=== PATIENT | female | born 1975 | race American Indian/Alaskan Native ===

== ENCOUNTER 2016-09-11 11:26 | Inpatient (IN) | payer MEDICARE, OTHER ==
[2016-09-11 12:49] LABS: Basophils % (Auto) 0.9 % (0.0-1.8); Hematocrit 30.7 % (30.3-42.9); Hemoglobin 9.7 gm/dl (10.1-14.3); Mean Corpuscular HGB Conc 32 % (30-34); Mean Corpuscular Hemoglobin 28 pg (28-32); Mean Corpuscular Volume 88 fl (79-97); Platelet Count 173 K/mm3 (140-440); Red Blood Count 3.49 M/mm3 (3.65-5.03); Red Cell Distribution Width 17.3 % (13.2-15.2)
[2016-09-11 12:59] LABS: INR 1.03 (0.87-1.13)
[2016-09-11 13:00] LABS: Partial Thromboplastin Time 30.2 Sec. (24.2-36.6)
[2016-09-11 13:05] LABS: Bilirubin,Urine NEG (Negative); Blood,Urine SM (Negative); Ketones,Urine NEG (Negative); Leukocyte Esterase,Urine LG (Negative); Nitrite,Urine NEG (Negative); Urobilinogen,Urine < 2.0 mg/dL (<2.0)
[2016-09-11 13:10] LABS: Alanine Aminotransferase 7 units/L (7-56); Albumin 3.2 g/dL (3.9-5); Albumin/Globulin Ratio 0.9 %; Alkaline Phosphatase 61 units/L (35-129); Total Protein 6.6 g/dL (6.3-8.2)
[2016-09-11 13:12] LABS: Albumin 3.1 g/dL (3.9-5); Albumin/Globulin Ratio 0.9 %; BUN/Creatinine Ratio 3.82; Bilirubin,Total 0.3 mg/dL (0.1-1.2); Calcium 8.8 mg/dL (8.4-10.2); Chloride 100.3 mmol/L (98-107); Potassium 5.1 mmol/L (3.6-5.0); Total Protein 6.7 g/dL (6.3-8.2)
[2016-09-11 13:17] LABS: Bilirubin,Direct < 0.2 mg/dL (0-0.2); Bilirubin,Indirect 0.1 mg/dL
[2016-09-11] MEDS ORDERED: XYLOCAINE 1%/ EPI 1:100,000 INFILTRATI NR (19:00)
[2016-09-11] MEDS ORDERED: XYLOCAINE 2%/EPI 1:100,000 INFILTRATI ONE (19:25)
--- NOTE | 2016-09-11 20:11 | Emergency Department Report ---
ED Abdominal Pain HPI - General Chief Complaint: Abdominal Pain Stated Complaint: PD NEEDS TO BE DRAINED Time Seen by Provider: 09/11/16 18:50 Source: patient Mode of arrival: Ambulatory Limitations: No Limitations - History of Present Illness Initial Comments: Briana is a 40-year-old female past medical history of end-stage renal disease who gets dialysis Monday//Monday. Vision states that she presents with abdominal swelling and abdominal pain patient states that pain as a 9 on 10. Has been going on for for the last couple days. Patient states that the abdominal pain is located throughout her abdomen it does not radiate. Lying down makes the abdominal pain worse sitting up makes it better. Abdominal pain is associated with some slight shortness of breath. Patient has no nausea or vomiting. Patient states that when her belly gets distended like this she needs to get her belly tapped. Patient is visiting from [place]. Severity scale (0 -10): 10 - Related Data Allergies Allergy/AdvReac Type Severity Reaction Status Date / Time iodine Allergy Swelling Verified 09/11/16 11:55 levofloxacin [From Levaquin] Allergy Swelling Verified 09/11/16 11:55 linezolid [From Zyvox] Allergy Hives Verified 09/11/16 11:55 morphine Allergy Swelling Verified 09/11/16 11:55 Sulfa (Sulfonamide Allergy Swelling Verified 09/11/16 11:55 Antibiotics) vancomycin Allergy Swelling Verified 09/11/16 11:55 ED Review of Systems ROS: Stated complaint: PD NEEDS TO BE DRAINED Other details as noted in HPI Constitutional: weakness Eyes: denies: eye pain, eye discharge, vision change ENT: denies: ear pain, throat pain Respiratory: SOB with exertion. denies: cough, shortness of breath, wheezing Cardiovascular: denies: chest pain, palpitations Endocrine: no symptoms reported Gastrointestinal: abdominal pain, nausea Genitourinary: denies: urgency, dysuria, discharge Musculoskeletal: denies: back pain, joint swelling, arthralgia Skin: denies: rash, lesions Neurological: denies: headache, weakness, paresthesias Psychiatric: denies: anxiety, depression Hematological/Lymphatic: denies: easy bleeding, easy bruising ED Past Medical Hx - Past Medical History Previous Medical History?: Yes Hx Hypertension: Yes Hx Congestive Heart Failure: Yes Hx Diabetes: Yes Hx Liver Disease: Yes Hx Renal Disease: Yes (HD Tu -Th-Sat) Hx Sickle Cell Disease: No Hx Arthritis: Yes Hx Headaches / Migraines: Yes Hx Seizures: No Hx Kidney Stones: No Hx Asthma: Yes (bronchitis) Hx Tuberculosis: No Additional medical history: Diabetic neuropathy - Surgical History Past Surgical History?: Yes Hx Cholecystectomy: Yes (2012) Additional Surgical History: Peritoneal catheters, Left arm AV graft, Har[place] retina repair, Lasix surgery in right eye, Left below knee amputation, Right foot with third toe removed, Peritoneal cath removal, - Social History Smoking Status: Never Smoker Substance Use Type: Alcohol, Prescribed ED Physical Exam - General Limitations: No Limitations General appearance: alert, in no apparent distress - Head Head exam: Present: atraumatic, normocephalic - Eye Eye exam: Present: normal appearance - ENT ENT exam: Present: mucous membranes moist - Cardiovascular Cardiovascular Exam: Present: regular rate, normal rhythm. Absent: systolic murmur, diastolic murmur, rubs, gallop - GI/Abdominal GI/Abdominal exam: Present: distended, other (fluid wave present.) - Extremities Exam Extremities exam: Present: other (left [id number] amputation with blisters on thigh.) - Back Exam Back exam: Present: normal inspection - Neurological Exam Neurological exam: Present: alert, CN II-XII intact. Absent: normal gait - Psychiatric Psychiatric exam: Present: normal affect, normal mood - Skin Skin exam: Present: warm ED Course Vital Signs 09/11/16 09/11/16 09/11/16 11:43 17:53 17:54 Temperature 98.7 F 98.2 F Pulse Rate 86 88 Respiratory 18 19 19 Rate Blood Pressure 161/88 Blood Pressure 175/95 [Right] O2 Sat by Pulse 97 95 Oximetry - Reevaluation(s) Reevaluation #1: 09/11/16 20:12 obtained small-volume paracentesis under ultrasound guidence fluid as brown will give patient IV analgesic medication Reevaluation #2: 09/11/16 21:[address] Meadows about admitting patient to patient IV antibiotics. - Paracentesis Consent Obtained: written consent Time Out Performed: Yes (Procedure is a diagnostic paracentisis under ultrasound guidance. ) Local Anesthetic Used: Lidocaine 1%, with Epi Amount of Anesthesia Used (mls): 10 (sterile technique was used: mask, gloves ) Fluid: cloudy, other (dark obtained 30 mls of fluid ), Sent to Lab for Analysis (patient recieved ) Post Procedure Exam: awake, alert, normal BP Patient Tolerated Procedure: well Complications: none ED Medical Decision Making - Lab Data Result diagrams: 09/11/16 12:21 09/11/16 12:21 Laboratory Results - last 24 hr 09/11/16 09/11/16 09/11/16 12:21 12:21 12:21 WBC 5.0 RBC 3.49 L Hgb 9.7 L Hct 30.7 MCV 88 MCH 28 MCHC 32 RDW 17.3 H Plt Count 173 Lymph % (Auto) 29.8 [place] % (Auto) 11.6 H Eos % (Auto) 6.0 H Baso % (Auto) 0.9 Lymph # 1.5 [place] # 0.6 Eos # 0.3 Baso # 0.0 Seg Neutrophils % 51.7 Seg Neutrophils # 2.6 PT 14.0 INR 1.03 APTT 30.2 Sodium 142 Potassium 5.1 H Chloride 100.3 Carbon Dioxide 25 Anion Gap 22 BUN 39 H Creatinine 10.2 H Estimated GFR 5 BUN/Creatinine Ratio 3.82 Glucose 146 H Calcium 8.8 Total Bilirubin 0.30 Direct Bilirubin Indirect Bilirubin AST 11 ALT 7 Alkaline Phosphatase 60 Total Protein 6.7 Albumin 3.1 L Albumin/Globulin Ratio 0.9 Amylase 108 Lipase 26 Urine Color Urine Turbidity Urine pH Ur Specific [place] Urine Protein Urine Glucose (UA) Urine Ketones Urine Blood Urine Nitrite Urine Bilirubin Urine Urobilinogen Ur Leukocyte Esterase Urine WBC (Auto) Urine RBC (Auto) U Epithel Cells (Auto) Ur Transition Epith Cell Fluid Type Fluid Color Fluid Appearance Fluid pH Fluid WBC Fluid RBC Fluid Seg Neutrophils Fluid Lymphocytes Fluid Reactive Lymphs Fluid Monocytes Fluid Eosinophils Fluid Basophils Fluid Comment 09/11/16 09/11/16 09/11/16 12:21 12:36 20:07 WBC RBC Hgb Hct MCV MCH MCHC RDW Plt Count Lymph % (Auto) [place] % (Auto) Eos % (Auto) Baso % (Auto) Lymph # [place] # Eos # Baso # Seg Neutrophils % Seg Neutrophils # PT INR APTT Sodium Potassium Chloride Carbon Dioxide Anion Gap BUN Creatinine Estimated GFR BUN/Creatinine Ratio Glucose Calcium Total Bilirubin 0.30 Direct Bilirubin < 0.2 Indirect Bilirubin 0.1 AST 12 ALT 7 Alkaline Phosphatase 61 Total Protein 6.6 Albumin 3.2 L Albumin/Globulin Ratio 0.9 Amylase Lipase Urine Color Yellow Urine Turbidity Clear Urine pH 9.0 H Ur Specific [place] 1.010 Urine Protein 100 mg/dl Urine Glucose (UA) 150 Urine Ketones Neg Urine Blood Sm Urine Nitrite Neg Urine Bilirubin Neg Urine Urobilinogen < 2.0 Ur Leukocyte Esterase Lg Urine WBC (Auto) 103.0 H Urine RBC (Auto) 8.0 U Epithel Cells (Auto) 5.0 Ur Transition Epith Cell 2 Fluid Type Ascitic Fluid Color Brown Fluid Appearance Cloudy Fluid pH 7.476 Fluid WBC 600 Fluid RBC 33155 Fluid Seg Neutrophils 71.0 Fluid Lymphocytes 11.0 Fluid Reactive Lymphs 0 Fluid Monocytes 18.0 Fluid Eosinophils 0 Fluid Basophils 0 Fluid Comment - Medical Decision Making Chief medical diagnosis: Spontaneous bacterial peritonitis Differential medical diagnosis: End-stage renal disease, metabolic abnormality , large volume ascites CBC, CMP, body fluid culture, urinalysis Due to patient having severe abdominal pain will get diagnostic paracentesis via ultrasound guidance. I will send fluid off for culture. Fluid results show findings consistent with spontaneous bacterial peritonitis patient will need IV Rocephin and admission for drainage of ascites fluid from abdomen. Critical care attestation.: If time is entered above; I have spent that time in minutes in the direct care of this critically ill patient, excluding procedure time. ED Disposition Clinical Impression: Spontaneous bacterial peritonitis, End stage renal disease Abdominal pain Qualifiers: Abdominal location: generalized Qualified Code(s): R10.84 - Generalized abdominal pain Ascites Qualifiers: Ascites type: due to alcoholic cirrhosis Qualified Code(s): K70.31 - Alcoholic cirrhosis of liver with ascites Disposition: OP ADMIT IP TO THIS HOSP Is pt being admited?: Yes Does the pt Need Aspirin: No Condition: Stable
[2016-09-11 21:08] LABS: pH, Body Fluid 7.476
[2016-09-11] MEDS ORDERED: SUBLIMAZE IV ONE (21:42)
[2016-09-11 21:53] LABS: Basophils Body Fluid 0 %; Eosinophils Body Fluid 0 %; Reactive Lymph Body Fluid 0 %
[2016-09-11] MEDS ORDERED: ROCEPHIN/NS 1 GM/50 ML 1 GM/50 ML BAG IV ONE (22:02)
[2016-09-11] MEDS ORDERED: MILK OF MAGNESIA PO PRN (22:43)
[2016-09-11] MEDS ORDERED: DULCOLAX PR PRN (22:43)
[2016-09-11] MEDS ORDERED: ZOFRAN IV PRN (22:43)
[2016-09-11] MEDS ORDERED: TYLENOL PO PRN (22:43)
--- NOTE | 2016-09-11 22:43 | History and Physical Report ---
History of Present Illness Date of examination: 09/11/16 History of present illness: 40-year-old woman with a history of end-stage renal disease on dialysis Monday , , Monday, hypertension, diabetes, CHF, as a comes emergency room with complaints of abdominal soreness, diffuse. Patient had a paracentesis done August 28. She had several tests done to evaluate liver function and she state that her liver is okay Review Of Systems: Constitutional: no fever, chills, weight loss Ears, eyes, nose, mouth and throat: no nasal congestion, no nasal discharge, no sinus pressure, blurry vision, diplopia Neck: No neck pain or rigidity. Cardiovascular: chest pain, orthopnea, palpitations Respiratory: No shortness of breath, cough Gastrointestinal: hematochezia Genitourinary : no dysuria, frequency , hematuria Musculoskeletal: no joint swelling or muscle ache Integumentary: no rash, no pruritis Neurological: no parathesias, focal weakness Endocrine: no cold or heat intolerance, no polyuria or polydipsia Hematologic/Lymphatic: no easy bruising, no easy bleeding, no gland swelling Allergic/Immunologic: no urticaria, no angioedema. PAST MEDICAL HISTORY: PAST SURGICAL HISTORY: FAMILY HISTORY: Hypertension, diabetes SOCIAL HISTORY: Social alcohol, no tobacco, drugs Medications and Allergies Allergies Allergy/AdvReac Type Severity Reaction Status Date / Time iodine Allergy Swelling Verified 09/11/16 11:55 levofloxacin [From Levaquin] Allergy Swelling Verified 09/11/16 11:55 linezolid [From Zyvox] Allergy Hives Verified 09/11/16 11:55 morphine Allergy Swelling Verified 09/11/16 11:55 Sulfa (Sulfonamide Allergy Swelling Verified 09/11/16 11:55 Antibiotics) vancomycin Allergy Swelling Verified 09/11/16 11:55 Active Meds: Active Medications Lidocaine/Epinephrine (Xylocaine 1%/ Epi 1:100,000) 20 ml INFILTRATI ONCE NR Stop: 09/11/16 23:00 Exam - Physical Exam Narrative exam: Gen. appearance: Patient lying in bed, no apparent distress HEENT: Normocephalic, atraumatic, pupils equally round and reactive to light, extraocular movement intact, and no sclericterus,. No JVD or thyromegaly or nodule,neck supple, no carotid bruit ,mucous membranes moist, no exudate or erythema Heart: S1, S2, regular rate and rhythm Lungs: Clear to auscultation bilaterally, breathing comfortable Abdomen: Positive bowel sounds, distended, mild tenderness, nondistended, no organomegaly Extremity: No edema, cyanosis, clubbing Skin: No rash, nodules, warm, dry Neuro: Oriented 3, cranial nerves II-12 intact, speech is fluent, motor and sensory intact - Constitutional Vitals: Temp Pulse Resp BP Pulse Ox 98.2 F 88 19 175/95 95 09/11/16 17:53 09/11/16 17:53 09/11/16 17:54 09/11/16 17:53 09/11/16 17:53 Results - Labs CBC & Chem 7: 09/11/16 12:21 09/11/16 12:21 Labs: Abnormal lab results 09/11/16 09/11/16 09/11/16 Range/Units 12:21 12:21 12:21 RBC 3.49 L (3.65-5.03) M/mm3 Hgb 9.7 L (10.1-14.3) gm/dl RDW 17.3 H (13.2-15.2) % [place] % (Auto) 11.6 H (0.0-7.3) % Eos % (Auto) 6.0 H (0.0-4.3) % Potassium 5.1 H (3.6-5.0) mmol/L BUN 39 H (7-17) mg/dL Creatinine 10.2 H (0.7-1.2) mg/dL Glucose 146 H (65-100) mg/dL Albumin 3.1 L 3.2 L (3.9-5) g/dL Urine pH (5.0-7.0) Urine WBC (Auto) (0.0-6.0) /HPF 09/11/16 Range/Units 12:36 RBC (3.65-5.03) M/mm3 Hgb (10.1-14.3) gm/dl RDW (13.2-15.2) % [place] % (Auto) (0.0-7.3) % Eos % (Auto) (0.0-4.3) % Potassium (3.6-5.0) mmol/L BUN (7-17) mg/dL Creatinine (0.7-1.2) mg/dL Glucose (65-100) mg/dL Albumin (3.9-5) g/dL Urine pH 9.0 H (5.0-7.0) Urine WBC (Auto) 103.0 H (0.0-6.0) /HPF Assessment and Plan Assessment Spontaneous bacterial peritonitis End-stage renal disease on dialysis Hypertension uncontrolled Diabetes type 2 CHF, stable Asthma Plan Admit to medicine Start IV rocephin, follow cultures Consult renal, start IV hydralazine Check fingersticks and initiate insulin sliding scale Continue appropiate outpatient medications Start dvt prophalaxis
[2016-09-11] MEDS ORDERED: D50W (25GM) IV PRN (23:12)
[2016-09-12] MEDS: DILAUDID IV PRN ×4 (03:36→21:57)
--- NOTE | 2016-09-12 03:55 | Admit Criteria Form ---
Admission Criteria Documentation: RENAL FAILURE, CHRONIC Clinical Indications for Admission to Inpatient Care (Place 'X' for any and all applicable criteria): Admission is indicated for ANY ONE of the following (1)(2)(3)(4)(5): [ ]I. Inpatient admission required rather than observation care (Use Renal Failure, Chronic: Observation Care Criteria as appropriate) because of ANY ONE of the following: [ ]a) Volume overload or uremic symptoms (eg, clinically significant pulmonary edema, hypertension, pericarditis, acidosis) too severe for, or not responsive (eg, for over 24 hours) to emergency department or observation care dialysis or treatment regimen (11) [ ]b) Hemodynamic instability that is severe or persistent [ ]c) Respiratory distress that is severe or persistent (11) [ ]d) Clinically significant electrolyte abnormality that requires inpatient care (eg,hyperkalemia with severe ECG findings)[B] [ ]e) Supplement O2 or respiratory therapy for over 24hrs that is performable only in acute inpatient setting [ ]f) Continuous IV infusion of anticoagulation, platelet inhibitor, vasoactive, or Antiarrhythmic medication (15), [ ]g) Pulmonary artery catheter monitoring [ ]h) Temporary pacemaker placement [ ]i) Emergent pericardiocentesis [ ]j) Other condition, treatment or monitoring requiring inpatient admission [ ]II. Unexplained syncope [A] [ ]III. Recurrent seizures [X]IV. Severe infections not treatable in outpatient setting (eg, peritonitis)(9 ) [ ]V. Cardiac arrhythmias of immediate concern [ ]. Encephalopathy [ ]VII.Bleeding abnormalities (eg, platelet dysfunction) with active (eg, gastrointestinal) bleeding Extended stay beyond goal length of stay may be needed for (3)(4)(35)(36): [ ]a) Continuing uremic complications [ ]b) Comorbidities or complications The original [employer] content created by [employer] has been revised. The portions of the content which have been revised are identified through the use of italic text or in bold, and [email or web address] has neither reviewed nor approved the modified material. All other unmodified content is copyright [employer]. Please see references footnoted in the original [facility] edition 2016 Admission Criteria Met: Yes
--- NOTE | 2016-09-12 07:36 | Progress Note ---
Assessment and Plan Assessment and plan: 40-year-old woman with a history of end-stage renal disease on dialysis Monday , , Monday, hypertension, diabetes, CHF, Left BKA, presents to the emergency room with complaints of abdominal soreness, diffuse. Patient had a paracentesis done August 28 but does not have results. She had several tests done to evaluate liver function and she state that her liver is okay. She reports persistent nausea with bilious emesis, she denies any fever. She is currently relocating from [place] to [place] * Abdominal Pain possible spontaneous bacterial peritonitis * continue empiric with Rocephin and flagyl, follow cultures * Large volume ascities * Therapeutic thoracentesis, patient complains of some shortness of breath when lying supine for pain control * Hypertension Uncontrolled * Continue home medications including IV hydralazine when necessary anticipate improvement with dialysis. * EndStage renal disease * Nephrology input noted patient will be dialyzed today. Normal dialysis is Mondayces Saturdays missed Monday dialysis to confusion with chronic * Diabetes type 2 * Patient reports blood glucose less than 130 at home. Not on meds. Will decrease sliding scale to low dose. 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 * CHF, stable * S/P left BKA * Woundcare following, * Asthma * ER and neck treatments * DVT/GI prophylaxis * Disposition: In am If symptoms improved. History Interval history: PATIENT SEEN AND EXAMINED STILL WITH ABDOMINAL PAIN, NAUSEA AND VOMITING. Hospitalist Physical - Physical exam Narrative exam: VITAL SIGNS: Reviewed. GENERAL: The patient appeared well nourished and normally developed. Vital signs as documented. HEAD: No signs of head trauma. EYES: Pupils are equal. Extraocular motions intact. EARS: Hearing grossly intact. MOUTH: Oropharynx is normal. NECK: No adenopathy, no JVD. CHEST: Chest with clear breath sounds bilaterally. No wheezes, rales, or rhonchi. CARDIAC: Regular rate and rhythm. S1 and S2, without murmurs, gallops, or rubs. VASCULAR: trace pedal Edema. Peripheral pulses normal and equal in all extremities. ABDOMEN: Soft, distended, Tender, positive fluid shift, no rebound, no masses palpated. Bowel Sounds hypoactive MUSCULOSKELETAL: Left BKA, otherwise right lower extremity with one missing digit, no clubbing, cyanosis but trace pedal edema. NEUROLOGIC EXAM: Alert and oriented x 3. No focal sensory or strength deficits. Speech normal. Follows commands. PSYCHIATRIC: Mood normal. SKIN: left upper ext fistula with thrills, 3 Distent callouse in the left foot , crusted. - Constitutional Vitals: Temp Pulse Resp BP Pulse Ox 98.6 F 98 H 18 178/92 99 09/12/16 01:31 09/12/16 01:41 09/12/16 01:41 09/12/16 01:41 09/12/16 01:31 Results - Labs CBC & Chem 7: 09/12/16 13:21 09/12/16 08:50 Labs: Laboratory Last Values WBC 5.0 K/mm3 (4.5-11.0) 09/11/16 12:21 RBC 3.49 M/mm3 (3.65-5.03) L 09/11/16 12:21 Hgb 9.7 gm/dl (10.1-14.3) L 09/11/16 12:21 Hct 30.7 % (30.3-42.9) 09/11/16 12:21 MCV 88 fl (79-97) 09/11/16 12:21 MCH 28 pg (28-32) 09/11/16 12:21 MCHC 32 % (30-34) 09/11/16 12:21 RDW 17.3 % (13.2-15.2) H 09/11/16 12:21 Plt Count 173 K/mm3 (140-440) 09/11/16 12:21 Lymph % (Auto) 29.8 % (13.4-35.0) 09/11/16 12:21 [place] % (Auto) 11.6 % (0.0-7.3) H 09/11/16 12:21 Eos % (Auto) 6.0 % (0.0-4.3) H 09/11/16 12:21 Baso % (Auto) 0.9 % (0.0-1.8) 09/11/16 12:21 Lymph # 1.5 K/mm3 (1.2-5.4) 09/11/16 12:21 [place] # 0.6 K/mm3 (0.0-0.8) 09/11/16 12:21 Eos # 0.3 K/mm3 (0.0-0.4) 09/11/16 12:21 Baso # 0.0 K/mm3 (0.0-0.1) 09/11/16 12:21 Seg Neutrophils % 51.7 % (40.0-70.0) 09/11/16 12:21 Seg Neutrophils # 2.6 K/mm3 (1.8-7.7) 09/11/16 12:21 PT 14.0 Sec. (12.2-14.9) 09/11/16 12:21 INR 1.03 (0.87-1.13) 09/11/16 12:21 APTT 30.2 Sec. (24.2-36.6) 09/11/16 12:21 Sodium 142 mmol/L (137-145) 09/11/16 12:21 Potassium 5.1 mmol/L (3.6-5.0) H 09/11/16 12:21 Chloride 100.3 mmol/L (98-107) 09/11/16 12:21 Carbon Dioxide 25 mmol/L (22-30) 09/11/16 12:21 Anion Gap 22 mmol/L 09/11/16 12:21 BUN 39 mg/dL (7-17) H 09/11/16 12:21 Creatinine 10.2 mg/dL (0.7-1.2) H 09/11/16 12:21 Estimated GFR 5 ml/min 09/11/16 12:21 BUN/Creatinine Ratio 3.82 % 09/11/16 12:21 Glucose 146 mg/dL (65-100) H 09/11/16 12:21 Calcium 8.8 mg/dL (8.4-10.2) 09/11/16 12:21 Total Bilirubin 0.30 mg/dL (0.1-1.2) 09/11/16 12:21 Direct Bilirubin < 0.2 mg/dL (0-0.2) 09/11/16 12:21 Indirect Bilirubin 0.1 mg/dL 09/11/16 12:21 AST 11 units/L (5-40) 09/11/16 12:21 ALT 7 units/L (7-56) 09/11/16 12:21 Alkaline Phosphatase 60 units/L (35-129) 09/11/16 12:21 Total Protein 6.7 g/dL (6.3-8.2) 09/11/16 12:21 Albumin 3.1 g/dL (3.9-5) L 09/11/16 12:21 Albumin/Globulin Ratio 0.9 % 09/11/16 12:21 Amylase 108 units/L (27-131) 09/11/16 12:21 Lipase 26 units/L (13-60) 09/11/16 12:21 Urine Color Yellow (Yellow) 09/11/16 12:36 Urine Turbidity Clear (Clear) 09/11/16 12:36 Urine pH 9.0 (5.0-7.0) H 09/11/16 12:36 Ur Specific [place] 1.010 (1.003-1.030) 09/11/16 12:36 Urine Protein 100 mg/dl mg/dL (Negative) 09/11/16 12:36 Urine Glucose (UA) 150 mg/dL (Negative) 09/11/16 12:36 Urine Ketones Neg mg/dL (Negative) 09/11/16 12:36 Urine Blood Sm (Negative) 09/11/16 12:36 Urine Nitrite Neg (Negative) 09/11/16 12:36 Urine Bilirubin Neg (Negative) 09/11/16 12:36 Urine Urobilinogen < 2.0 mg/dL (<2.0) 09/11/16 12:36 Ur Leukocyte Esterase Lg (Negative) 09/11/16 12:36 Urine WBC (Auto) 103.0 /HPF (0.0-6.0) H 09/11/16 12:36 Urine RBC (Auto) 8.0 /HPF (0.0-6.0) 09/11/16 12:36 U Epithel Cells (Auto) 5.0 /HPF (0-13.0) 09/11/16 12:36 Ur Transition Epith Cell 2 /HPF 09/11/16 12:36 Fluid Type Ascitic 09/11/16 20:07 Fluid Color Brown 09/11/16 20:07 Fluid Appearance Cloudy 09/11/16 20:07 Fluid pH 7.476 09/11/16 20:07 Fluid WBC 600 /mm3 09/11/16 20:07 Fluid RBC 85876 /mm3 09/11/16 20:07 Fluid Seg Neutrophils 71.0 % 09/11/16 20:07 Fluid Lymphocytes 11.0 % 09/11/16 20:07 Fluid Reactive Lymphs 0 % 09/11/16 20:07 Fluid Monocytes 18.0 % 09/11/16 20:07 Fluid Eosinophils 0 % 09/11/16 20:07 Fluid Basophils 0 % 09/11/16 20:07 Fluid Comment 09/11/16 20:07 - Imaging and Cardiology CT scan - abdomen: image reviewed (large volume ascites)
[2016-09-12] MEDS: FLAGYL PO SCH ×3 (09:06→22:01)
[2016-09-12] MEDS: LOVENOX SUB-Q SCH (09:15)
--- NOTE | 2016-09-12 09:29 | Consultation ---
History of Present Illness - Reason for Consult Consult date: 09/12/16 end stage renal disease - History of Present Illness This is a 40 year old female who presented to the hospital with a chief complaint of generalized abdominal pain present for 2 days now. Patient states she underwent a Paracentesis on 08/28/16 and was being followed by a Bill Of Materials Clerk in [place]. Patient has history of CHF, Hypertension, Diabetes Mellitus, PVD with Left BKA and ESRD on hemodialysis every Monday, and Monday. Patient resides in [place] but is in the process of moving to [place] permanently and as a result patient has been in [place] for 2 weeks now making preparations to move here. Patient is currently receiving hemodialysis at [facility] in the interim. Patient reports missing hemodialysis on Monday due to some confusion at the clinic per patient. Patient reports being on hemodialysis for 5 years but was on Peritoneal Dialysis at one point which was stopped in the year 2014 due to Peritonitis. We are being consulted for management of this patient's ESRD. Past History Past Medical History: diabetes, dialysis, ESRD, hypertension, renal failure, other (PVD) Past Surgical History: Other (PD catheter placement and removal, Left AVF placement, Left BKA) Social history: Family history: no significant family history Medications and Allergies Allergies Allergy/AdvReac Type Severity Reaction Status Date / Time iodine Allergy Swelling Verified 09/11/16 11:55 levofloxacin [From Levaquin] Allergy Swelling Verified 09/11/16 11:55 linezolid [From Zyvox] Allergy Hives Verified 09/11/16 11:55 morphine Allergy Swelling Verified 09/11/16 11:55 Sulfa (Sulfonamide Allergy Swelling Verified 09/11/16 11:55 Antibiotics) vancomycin Allergy Swelling Verified 09/11/16 11:55 Home Medications Medication Instructions Recorded Confirmed Last Taken Type Dulcolax tab 4 mg PO DAILY 09/12/16 09/12/16 09/05/16 History Gabapentin 400 mg PO BID 09/12/16 09/12/16 09/11/16 History Lisinopril 40 mg PO BID 09/12/16 09/12/16 09/11/16 History Percocet 10/325 mg 1 tab PO Q8H PRN 09/12/16 09/12/16 09/11/16 History Renvela 800 mg PO AC 09/12/16 09/12/16 09/10/16 History Active Meds: Active Medications Acetaminophen (Tylenol) 650 mg PO Q4H PRN PRN Reason: Pain MILD(1-3)/Fever >100.5/JENKINS Bisacodyl (Dulcolax) 10 mg FL QDAY PRN PRN Reason: Constipation unrelieved by [facility] Dextrose (D50w (25gm)) 50 ml IV PRN PRN PRN Reason: Hypoglycemia Enoxaparin Sodium (Lovenox) 30 mg SUB-Q QDAY [facility], [facility]1983 Last Admin: 09/12/16 09:15 Dose: 30 mg Hydromorphone HCl (Dilaudid) 1 mg IV Q4H PRN PRN Reason: Pain , Severe (7-10) Last Admin: 09/12/16 09:07 Dose: 1 mg Insulin Aspart (Novolog) 0 units SUB-Q ACHS [facility], [facility]1983 PRN Reason: Protocol Magnesium Hydroxide (Milk Of Magnesia) 30 ml PO Q4H PRN PRN Reason: Constipation Metronidazole (Flagyl) 500 mg PO Q8HR [facility] Last Admin: 09/12/16 09:06 Dose: 500 mg Ondansetron HCl (Zofran) 4 mg IV Q8H PRN PRN Reason: N/V unrelieved by Reglan Review of Systems Constitutional: fatigue, no weight loss, no weight gain, no fever, no chills, no sweats, no weakness, no malaise, no lethargy Ears, nose, mouth and throat: no ear discharge, no tinnitis, no decreased hearing, no nose pain, no nasal congestion, no nasal discharge Cardiovascular: high blood pressure, leg edema, no chest pain, no orthopnea, no palpitations, no rapid/irregular heart beat, no edema, no syncope, no lightheadedness, no shortness of breath, no dyspnea on exertion, no claudication , no phlebitis Respiratory: no cough with sputum, no excessive sputum, no hemoptysis, no shortness of breath, no dyspnea on exertion Gastrointestinal: abdominal pain, no nausea, no vomiting, no diarrhea, no constipation, no change in bowel habits Genitourinary Female: no pelvic pain, no flank pain, no menorrhagia, no dysuria , no urinary frequency, no urgency Musculoskeletal: no neck pain, no shooting arm pain, no arm numbness/tingling, no low back pain, no shooting leg pain Integumentary: no pruritis, no redness, no sores, no wounds, no jaundice Neurological: no paralysis, no weakness, no parathesias, no numbness, no tingling, no seizures Psychiatric: no anxiety, no memory loss, no change in sleep habits, no sleep disturbances, no insomnia, no hypersomnia, no change in appetite Endocrine: no heat intolerance, no polyphagia, no excessive thirst, no polydipsia, no polyuria Hematologic/Lymphatic: no easy bruising, no easy bleeding, no lymphadenopathy, no lymphedema Exam - Vital Signs Vital signs: Vital Signs Temp Pulse Resp BP Pulse Ox 98.7 F 86 18 161/88 97 09/11/16 11:43 09/11/16 11:43 09/11/16 11:43 09/11/16 11:43 09/11/16 11:43 - General Appearance General appearance: well-developed, well-nourished, appears stated age, fatigue EENT: ATNC, PERRL, hearing intact, vision intact Neck: Present: neck supple, trachea midline Respiratory: Clear to Ascultation Heart: regular, S1S2 Gastrointestinal: Present: normoactive bowel sounds, other (generalised tenderness on palpation) Integumentary: warm and dry Neurologic: alert and oriented x3 Musculoskeletal: Present: joint swelling, other (Left BKA. Right leg mild edema) Psychiatric: cooperative Results - Lab Results 09/11/16 12:21 09/11/16 12:21 Most recent lab results Calcium 8.8 mg/dL (8.4-10.2) 09/11/16 12:21 Assessment and Plan - Patient Problems (1) Abdominal pain Current Visit: Yes Status: Acute Qualifiers: Abdominal location: generalized Qualified Code(s): R10.84 - Generalized abdominal pain Plan to address problem: Work-up in progress Scheduled for Ct scan of Abdomen and Pelvis Scheduled for Paracentesis (2) End stage renal disease Current Visit: Yes Status: Acute Plan to address problem: Hemodialysis today for UF and clearance Likely HD again tomorrow as well Fluid restriction of 1 liter per day Monitor I/O's Renally dose medications Left AVF functional Thank you for the kind consult. We will follow with you. (3) Anemia in chronic kidney disease, on chronic dialysis Current Visit: Yes Status: Acute Plan to address problem: Epogen 10,000units with HD (4) Hypertensive CKD (chronic kidney disease) Current Visit: Yes Status: Acute Plan to address problem: Resume outpatient BP meds (5) Diabetes mellitus Current Visit: Yes Status: Acute Qualifiers: Diabetes mellitus type: D Diabetes mellitus complication status: D Diabetes mellitus complication detail: D Diabetic retinopathy severity: D Proliferative retinopathy type: P Diabetes mellitus macular edema: D Diabetes mellitus penitentiary insulin use: D Laterality: L Chronic kidney disease stage: C Plan to address problem: On Insulin as per Primary Team
[2016-09-12] MEDS: NOVOLOG SUB-Q SCH ×4 (09:48→22:01)
[2016-09-12] MEDS ORDERED: PROCRIT IV PRN (09:55)
[2016-09-12 10:04] LABS: BUN/Creatinine Ratio 3.71; Calcium 9.5 mg/dL (8.4-10.2); Potassium 5.3 mmol/L (3.6-5.0)
--- NOTE | 2016-09-12 10:30 | Cat Scan Report ---
CT abdomen and pelvis without contrast: Abdominal pain and distention. Transverse images are obtained from the low chest and ischium with coronal and sagittal 2-D reformatted images. Sections are obtained through the lower chest. Areas of opacity are identified in the right lower lobe centrally as well as peripherally. Thinner areas of opacity are noted in the lingula segment of the left upper lobe. A small calcification present at the right lung base. Coronary vascular calcifications present. Patient has a large volume of ascites. The gallbladder has been removed. The pancreas is somewhat difficult to fully assess but appears grossly normal. A couple of small scattered calcifications are seen in the spleen. Mural atherosclerosis of the abdominal aorta. The abdominal and retroperitoneal structures are not otherwise remarkable. The bowel is unopacified but appears grossly normal. The bowel is somewhat displaced by the large item of fluid. There no inflammatory changes identified. The uterus is present centrally positioned IUD. A Impressions: Large volume of ascites. Evidence of old granulomatous infection.
[2016-09-12 11:49] LABS: Hemoglobin TNR gm/dl (10.1-14.3); Red Blood Count TNR M/mm3 (3.65-5.03); White Blood Count TNR K/mm3 (4.5-11.0)
[2016-09-12 11:50] LABS: Hematocrit TNR % (30.3-42.9); Mean Corpuscular HGB Conc TNR % (30-34); Mean Corpuscular Hemoglobin TNR pg (28-32); Mean Corpuscular Volume TNR fl (79-97); Mean Platelet Volume TNR fl (6-12); Platelet Count TNR K/mm3 (140-440); Red Cell Distribution Width TNR % (13.2-15.2)
[2016-09-12 11:52] LABS: Basophils % (Auto) TNR % (0.0-1.8); Eosinophils % (Auto) TNR % (0.0-4.3)
[2016-09-12] MEDS ORDERED: PROCRIT ONE (13:29)
[2016-09-12 13:38] LABS: Basophils % (Auto) 1.1 % (0.0-1.8); Eosinophils % (Auto) 6.7 % (0.0-4.3); Hematocrit 33.8 % (30.3-42.9); Hemoglobin 10.9 gm/dl (10.1-14.3); Mean Corpuscular HGB Conc 32 % (30-34); Mean Corpuscular Hemoglobin 28 pg (28-32); Mean Corpuscular Volume 86 fl (79-97); Platelet Count 198 K/mm3 (140-440); Red Blood Count 3.95 M/mm3 (3.65-5.03); Red Cell Distribution Width 17.1 % (13.2-15.2); White Blood Count 5.1 K/mm3 (4.5-11.0)
[2016-09-13] MEDS: DILAUDID IV PRN ×2 (04:20→12:19)
[2016-09-13 05:54] LABS: Albumin 3.1 g/dL (3.9-5); Albumin/Globulin Ratio 0.8 %; BUN/Creatinine Ratio 3.29; Bilirubin,Total 0.3 mg/dL (0.1-1.2); Calcium 9.2 mg/dL (8.4-10.2); Chloride 99.6 mmol/L (98-107); Phosphorous 6.9 mg/dL (2.5-4.5); Potassium 4.8 mmol/L (3.6-5.0); Total Protein 6.8 g/dL (6.3-8.2)
[2016-09-13] MEDS: FLAGYL PO SCH ×2 (06:21→18:13)
--- NOTE | 2016-09-13 10:06 | Progress Note ---
Assessment and Plan - Patient Problems (1) Abdominal pain Current Visit: Yes Status: Acute Qualifiers: Abdominal location: generalized Qualified Code(s): R10.84 - Generalized abdominal pain Plan to address problem: Ct scan of Abdomen and Pelvis revealed Large volume Ascites Undergoing Paracentesis today (2) End stage renal disease Current Visit: Yes Status: Acute Plan to address problem: Hemodialysis today for UF and clearance Fluid restriction of 1 liter per day Monitor I/O's Renally dose medications Left AVF functional (3) Anemia in chronic kidney disease, on chronic dialysis Current Visit: Yes Status: Acute Plan to address problem: Epogen 10,000units with HD (4) Hypertensive CKD (chronic kidney disease) Current Visit: Yes Status: Acute Plan to address problem: Blood pressures are stable (5) Diabetes mellitus Current Visit: Yes Status: Acute Qualifiers: Diabetes mellitus type: D Diabetes mellitus complication status: D Diabetes mellitus complication detail: D Diabetic retinopathy severity: D Proliferative retinopathy type: P Diabetes mellitus macular edema: D Diabetes mellitus liquor rectifier insulin use: D Laterality: L Chronic kidney disease stage: C Plan to address problem: On Insulin as per Primary Team Subjective Date of service: 09/13/16 Principal diagnosis: Ascites Interval history: Patient off floor undergoing Paracentesis Objective - Vital Signs Vital signs: Vital Signs - 12hr 09/12/16 23:10 Temperature 99.2 F Pulse Rate 91 H Respiratory 20 Rate Blood Pressure 120/61 O2 Sat by Pulse 95 Oximetry - Lab 09/12/16 13:21 09/13/16 05:03 Most recent lab results Calcium 9.2 mg/dL (8.4-10.2) 09/13/16 05:03 Phosphorus 6.90 mg/dL (2.5-4.5) H 09/13/16 05:03
[2016-09-13] MEDS: NOVOLOG SUB-Q SCH ×3 (10:49→18:26)
--- NOTE | 2016-09-13 11:11 | Ultrasound Report ---
Ultrasound guided paracentesis. History: Abdominal distention. Procedure: The patient skin surface overlying the right lower quadrant was prepped and draped using sterile technique. Local anesthetic was injected into the skin. Using sonographic guidance, a 5 [place] pigtail catheter was inserted into the fluid collection. 5.4 L of dark colored serous fluid was aspirated and appropriate samples sent to the laboratory. The patient chart the procedure well clinically.
[2016-09-13] MEDS: LOVENOX SUB-Q SCH (12:20)
--- NOTE | 2016-09-13 13:13 | Discharge Summary ---
Providers - Providers Date of Admission: 09/11/16 22:43 Attending physician: OMER NAJERA MD 09/12/16 02:59 Consult to Wound/ET Nurse [CONS] Routine Reason For Exam: wound eval Primary care physician: ASTROPHYSICS TEACHER Hospitalization Condition: Stable Hospital course: 40-year-old woman with a history of end-stage renal disease on dialysis Monday , , Monday, hypertension, diabetes, CHF, Left BKA, presents to the emergency room with complaints of abdominal soreness, diffuse. Patient had a paracentesis done August 28, she had had liver test done before and was told on many occasions that she does not have liver disease. Her ascites is related to kidney failure.. She was found to have large volume ascites, went on to have large volume paracentesis. Her blood pressure medications optimized, she'll continue hemodialysis per nephrology. She was treated with diabetic diet and insulin sliding scale. She was seen in conjunction with nephrology who felt her symptoms were chronic in nature, she will had much improvement of her symptoms after paracentesis. She also had her outpatient hemodialysis schedule by case management prior to discharge. Patient did not clinically have CHF, ascites most likely due to end-stage renal disease. As she did not have any clinical signs of heart failure. Discharge diagnoses Massive ascites due to transudation Hypertensive urgency ESRD, HD dependent Type 2 diabetes, [id number] Anemia of chronic disease Asthma, chronic Disposition: DC-01 TO HOME OR SELFCARE Time spent for discharge: 33 minutes Core Measure Documentation - Palliative Care Palliative Care/ Comfort Measures: Not Applicable - Core Measures Any of the following diagnoses?: none Exam - Constitutional Vitals: Temp Pulse Resp BP Pulse Ox 98.9 F 88 18 188/106 100 09/13/16 07:30 09/13/16 07:30 09/13/16 07:30 09/13/16 07:30 09/13/16 07:30 General appearance: Present: no acute distress, well-nourished - EENT Eyes: Present: PERRL ENT: hearing intact, clear oral mucosa - Neck Neck: Present: supple, normal ROM - Respiratory Respiratory effort: normal Respiratory: bilateral: CTA - Cardiovascular Heart Sounds: Present: S1 & S2. Absent: rub, click - Extremities Extremities: pulses symmetrical, No edema Peripheral Pulses: within normal limits - Abdominal General gastrointestinal: Present: soft, non-tender, non-distended, normal bowel sounds Female genitourinary: Present: normal - Integumentary Integumentary: Present: clear, warm, dry - Musculoskeletal Musculoskeletal: gait normal, strength equal bilaterally - Psychiatric Psychiatric: appropriate mood/affect, intact judgment & insight - Neurologic Neurologic: CNII-XII intact, moves all extremities Plan Follow up with: PRIMARY CARE, [Primary Care Provider] - 3-5 Days Prescriptions: Percocet 10/325 mg 1 tab PO Q8H PRN #14 PRN Reason: Pain
--- NOTE | 2016-09-13 13:41 | Procedure Note ---
Date of procedure: 09/13/16 Pre-op diagnosis: Ascites Post-op diagnosis: same Procedure: Paracentesis Anesthesia: local Surgeon: ZHAO DE LA GARZA Estimated blood loss: none Specimen disposition: to lab Condition: stable Disposition: floor
[2016-09-13] MEDS ORDERED: NACL 0.9 (PRIMING MACHINE ONLY DIALYSIS) MC ONE (18:11)
[2016-09-13 18:47] VITALS: BP 199/107
[2016-09-19 23:44] LABS: LDH,Body Fluid 452
== END 2016-09-13 19:31 | disposition home or self-care (01) | DRG 371 ==
LOC: ED 11:26 → 3A 22:43
PROVIDERS: ADMIT Internal Medicine; ATTEND Internal Medicine
PROC: 5A1D60Z (ICD-10-PCS; 2016-09-12)
PROC: 0W9G3ZX Drainage of Peritoneal Cavity, Percutaneous Approach, Diagnostic (ICD-10-PCS; principal; 2016-09-13)
DX: K65.2 Spontaneous bacterial peritonitis (principal); N18.6 End stage renal disease; I13.2 Hypertensive heart and chronic kidney disease with heart failure and with stage 5 chronic kidney disease, or end stage renal disease; R18.8 Other ascites; E11.22 Type 2 diabetes mellitus with diabetic chronic kidney disease; I50.9 Heart failure, unspecified; M19.90 Unspecified osteoarthritis, unspecified site; E11.40 Type 2 diabetes mellitus with diabetic neuropathy, unspecified; J45.909 Unspecified asthma, uncomplicated; G43.909 Migraine, unspecified, not intractable, without status migrainosus; E11.51 Type 2 diabetes mellitus with diabetic peripheral angiopathy without gangrene; D63.1 Anemia in chronic kidney disease; Z88.2 Allergy status to sulfonamides; Z88.1 Allergy status to other antibiotic agents; Z99.2 Dependence on renal dialysis; Z88.5 Allergy status to narcotic agent; Z89.512 Acquired absence of left leg below knee; Z91.041 Radiographic dye allergy status; Z90.49 Acquired absence of other specified parts of digestive tract; Z82.49 Family history of ischemic heart disease and other diseases of the circulatory system; Z83.3 Family history of diabetes mellitus
CPT/HCPCS: 36415; 49083; 74176; 80048; 80053; 80074; 81001; 82150; 82947; 82962; 83036; 83605; 83690; 84100; 84160; 85025; 85610; 85730; 87075; 87116; 88112; 88305; 89051; J0696; J0885; J1170; J1650; J1815; J3010; J7030

== ENCOUNTER 2016-10-15 13:01 | Emergency (ER) | payer MEDICARE ==
[2016-10-15 15:07] VITALS: BP 154/83
[2016-10-15 15:28] LABS: Hematocrit 21.2 % (30.3-42.9); Hemoglobin 6.6 gm/dl (10.1-14.3); Mean Corpuscular HGB Conc 31 % (30-34); Mean Corpuscular Hemoglobin 28 pg (28-32); Mean Corpuscular Volume 91 fl (79-97); Platelet Count 162 K/mm3 (140-440); Red Blood Count 2.34 M/mm3 (3.65-5.03); Red Cell Distribution Width 19.1 % (13.2-15.2); White Blood Count 5.2 K/mm3 (4.5-11.0)
[2016-10-15 15:47] LABS: BUN/Creatinine Ratio 5.05; Calcium 8.5 mg/dL (8.4-10.2); Chloride 103.2 mmol/L (98-107); Potassium 4.5 mmol/L (3.6-5.0)
[2016-10-15 18:26] LABS: Alanine Aminotransferase 11 units/L (7-56); Albumin 3.5 g/dL (3.9-5); Albumin/Globulin Ratio 1.1 %; Alkaline Phosphatase 59 units/L (35-129); Iron 41 ug/dL (37-170); Total Iron Binding Capacity 131 mcg/dL (250-450); Total Protein 6.8 g/dL (6.3-8.2)
[2016-10-15 18:38] LABS: Bilirubin,Direct < 0.2 mg/dL (0-0.2); Bilirubin,Indirect 0.2 mg/dL
== END 2016-10-15 18:45 | disposition left against medical advice (07) ==
LOC: ED 13:01
DX: Z53.21 Procedure and treatment not carried out due to patient leaving prior to being seen by health care provider (principal)
CPT/HCPCS: 36415; 80048; 80061; 80074; 83550; 84484; 85027; 86850; 86900; 86901

== ENCOUNTER 2016-10-18 11:45 | Inpatient (IN) | payer MEDICAID, MEDICARE ==
--- NOTE | 2016-10-18 13:00 | Emergency Department Report ---
Chief Complaint: Weakness Stated Complaint: PASSED OUT AND NEEDS TO HAVE DIALYSIS Time Seen by Provider: 10/18/16 12:57 - HPI History of Present Illness: PT states she needs HD today. PT states she is anemic and she passed out today. Pt states she knows she needs blood. - ROS Review of Systems: + fatigue + syncope - Exam Vital Signs: Vital Signs 10/18/16 12:53 Temperature 98.9 F Pulse Rate 93 H Respiratory 20 Rate Blood Pressure 162/86 O2 Sat by Pulse 94 Oximetry Physical Exam: pt is alert and appropriate no focal weakness noted MSE screening note: Focused history and physical exam performed. Due to findings the following was ordered: ekg, labs ED Disposition for MSE Condition: Stable
[2016-10-18 13:47] LABS: Basophils % (Auto) 0.8 % (0.0-1.8); Eosinophils % (Auto) 5.5 % (0.0-4.3); Hematocrit 21.2 % (30.3-42.9); Hemoglobin 6.8 gm/dl (10.1-14.3); Mean Corpuscular HGB Conc 32 % (30-34); Mean Corpuscular Hemoglobin 29 pg (28-32); Mean Corpuscular Volume 90 fl (79-97); Platelet Count 175 K/mm3 (140-440); Red Blood Count 2.37 M/mm3 (3.65-5.03); Red Cell Distribution Width 19.5 % (13.2-15.2); White Blood Count 5.1 K/mm3 (4.5-11.0)
[2016-10-18 14:03] LABS: Albumin 3.4 g/dL (3.9-5); BUN/Creatinine Ratio 4.73; Bilirubin,Total 0.3 mg/dL (0.1-1.2); Calcium 9.1 mg/dL (8.4-10.2); Chloride 102.4 mmol/L (98-107); Potassium 4.8 mmol/L (3.6-5.0); Total Protein 6.8 g/dL (6.3-8.2)
[2016-10-18] MEDS ORDERED: NORCO 5/325 PO ONE (20:23)
[2016-10-18] MEDS ORDERED: NACL 0.9% 500 ML 500 ML IV ONE (20:23)
--- NOTE | 2016-10-18 20:29 | Emergency Department Report ---
HPI - General Chief Complaint: Weakness Time Seen by Provider: 10/18/16 12:57 - HPI HPI: Room 24 The patient is a 40-year-old female presented with a chief complaint of weakness. The patient states she is end-stage renal disease received dialysis every Monday and Monday. This past 10/15/2016 blood was drawn at the dialysis center and the patient was informed she was anemic and needed to come to the emergency department. The patient states she came to the emergency department with left without treatment secondary to the long wait. Patient states for the past week she's had multiple syncopal episodes awakening on the floor. The patient states this morning she had a syncopal episode and injured her neck and left shoulder after the fall. Patient claims to feeling weak and lightheaded. The patient gets her pain score 10/10. The patient last received dialysis 10/13/2016. Location: [see above] Duration: [see above] Quality: Weakness Severity: 10/10 Modifying factors: [see above] Context: [see above] Mode of transportation: [not driving] ED Past Medical Hx - Past Medical History Hx Hypertension: Yes Hx Congestive Heart Failure: Yes Hx Diabetes: Yes (with diabetic neuropathy) Hx Liver Disease: Yes Hx Renal Disease: Yes (HD --Mon) Hx Arthritis: Yes Hx Headaches / Migraines: Yes Hx Asthma: Yes (bronchitis) Additional medical history: Diabetic neuropathy - Surgical History Hx Internal Defibrillator: Yes (it is turned off) Hx Cholecystectomy: Yes (2012) Additional Surgical History: Peritoneal catheters, Left arm AV graft, Haroon retina repair, Lasix surgery in right eye, Left below knee amputation, Right foot with third toe removed, Peritoneal cath removal, - Family History Family history: no significant - Social History Smoking Status: Never Smoker Substance Use Type: None - Medications Home Medications: Home Medications Medication Instructions Recorded Confirmed Last Taken Type Dulcolax tab 4 mg PO DAILY 09/12/16 09/12/16 09/05/16 History Gabapentin 400 mg PO BID 09/12/16 09/12/16 09/11/16 History Lisinopril 40 mg PO BID 09/12/16 09/12/16 09/11/16 History Renvela 800 mg PO AC 09/12/16 09/12/16 09/10/16 History Percocet 10/325 mg 1 tab PO Q8H PRN #14 09/13/16 Unknown Rx ED Review of Systems ROS: Stated complaint: PASSED OUT AND NEEDS TO HAVE DIALYSIS Other details as noted in HPI Comment: All other systems reviewed and negative Constitutional: weakness Eyes: denies: eye pain, eye discharge, vision change ENT: denies: ear pain, throat pain Respiratory: denies: cough, shortness of breath, wheezing Cardiovascular: denies: chest pain, palpitations Endocrine: no symptoms reported Gastrointestinal: denies: abdominal pain, nausea, diarrhea Genitourinary: denies: urgency, dysuria, discharge Musculoskeletal: arthralgia, myalgia Skin: denies: rash, lesions Neurological: headache Psychiatric: denies: anxiety, depression Hematological/Lymphatic: denies: easy bleeding, easy bruising Physical Exam - Physical Exam Vital Signs: Vital Signs 10/18/16 12:53 Temperature 98.9 F Pulse Rate 93 H Respiratory 20 Rate Blood Pressure 162/86 O2 Sat by Pulse 94 Oximetry Physical Exam: GENERAL: The patient is well-developed well-nourished female sitting on stretcher not appearing to be in acute distress. [] HEENT: Normocephalic. Atraumatic. Extraocular motions are intact. Patient has moist mucous membranes. NECK: Supple. There is adnexal tenderness to palpation. There is no cervical step-offs CHEST/LUNGS: Clear to auscultation. There is no respiratory distress noted. HEART/CARDIOVASCULAR: Regular. There is no tachycardia. There is no gallop rub or murmur. ABDOMEN: Abdomen is soft, nontender. Patient has normal bowel sounds. There is no abdominal distention. SKIN: There is no rash. There is no edema. There is no diaphoresis. NEURO: The patient is awake, alert, and oriented. The patient is cooperative. The patient has no focal neurologic deficits. The patient has normal speech MUSCULOSKELETAL: There is tenderness to palpation of the left shoulder. There is no limitation range of motion. There is no evidence of acute injury. ED Course Vital Signs 10/18/16 12:53 Temperature 98.9 F Pulse Rate 93 H Respiratory 20 Rate Blood Pressure 162/86 O2 Sat by Pulse 94 Oximetry ED Medical Decision Making - Lab Data Result diagrams: 10/18/16 13:19 10/18/16 13:19 Laboratory Tests 10/18/16 10/18/16 10/18/16 13:19 13:19 13:19 WBC 5.1 RBC 2.37 L Hgb 6.8 L Hct 21.2 L MCV 90 MCH 29 MCHC 32 RDW 19.5 H Plt Count 175 Lymph % (Auto) 16.6 Nuckolls % (Auto) 5.1 Eos % (Auto) 5.5 H Baso % (Auto) 0.8 Lymph # 0.8 L Nuckolls # 0.3 Eos # 0.3 Baso # 0.0 Seg Neutrophils % 72.0 H Seg Neutrophils # 3.7 Sodium 146 H Potassium 4.8 Chloride 102.4 Carbon Dioxide 23 Anion Gap 25 BUN 63 H Creatinine 13.3 H Estimated GFR 4 BUN/Creatinine Ratio 4.73 Glucose 111 H Calcium 9.1 Total Bilirubin 0.30 AST 11 ALT 8 Alkaline Phosphatase 59 Total Protein 6.8 Albumin 3.4 L Albumin/Globulin Ratio 1.0 Blood Type O POSITIVE Antibody Screen Negative Crossmatch See Detail - EKG Data -: EKG Interpreted by Me EKG shows normal: sinus rhythm Rate: normal - EKG Data When compared to previous EKG there are: previous EKG unavailable Interpretation: nonspecific ST-T wave cherise (T-wave inversion in leads 1, aVL, V6) - Radiology Data Radiology results: report reviewed (CT head, CT cervical spine), image reviewed (left shoulder x-ray, CT head, CT cervical spine) interpreted by me: Left shoulder x-ray-no acute fracture, no dislocation CT head (rubber radiologist)-minimal paranasal sinus disease as described otherwise negative exam. No evidence of intracranial hemorrhage or skull fracture or mass lesion. CT cervical spine (read by radiologist)-no evidence of fracture or subluxation. - Differential Diagnosis symptomatic anemia, cervical fracture, cervical strain Critical care attestation.: If time is entered above; I have spent that time in minutes in the direct care of this critically ill patient, excluding procedure time. ED Disposition Clinical Impression: Symptomatic anemia, End stage renal disease, Syncope, Contusion of left shoulder Disposition: OP ADMIT IP TO THIS HOSP Is pt being admited?: Yes Does the pt Need Aspirin: No Condition: Stable Instructions: Syncope (ED) Referrals: PRIMARY CARE, [Primary Care Provider] - 3-5 Days Time of Disposition: 21:43 (Hospitalist paged)
--- NOTE | 2016-10-18 21:31 | Cat Scan Report ---
FINAL REPORT PROCEDURE: CT HEAD/BRAIN WO CON TECHNIQUE: Computerized tomography of the head was performed without contrast material. HISTORY: syncope, headache COMPARISON: No prior studies are available for comparison. FINDINGS: Brain: Brain density appears normal. No evidence of intracranial hemorrhage. No parenchymal hemorrhage, mass lesions or mass effect are seen. No abnormal extraxial fluid collects or masses are seen. Ventricles: Ventricles are normal size and are midline. Bone Windows: No evidence of skull fracture. Paranasal sinuses: Small nodular densities seen posteriorly in the left side of the sphenoid sinus measuring 3.7 millimeters suggesting a small polyp or mucous retention cyst. Visualized portions of the paranasal sinuses otherwise appear clear. Mastoid air cells: Clear IMPRESSION: Minimal paranasal sinus disease as described otherwise negative exam. No evidence of intracranial hemorrhage or skull fracture or mass lesion.
--- NOTE | 2016-10-18 21:39 | Cat Scan Report ---
FINAL REPORT PROCEDURE: CT CERVICAL SPINE WO CON TECHNIQUE: Computerized tomography of the cervical spine was performed from the skull base to T1 without contrast material. HISTORY: Neck pain after fall COMPARISON: No prior studies are available for comparison. FINDINGS: No fracture or subluxation is seen. The prevertebral soft tissues appear normal. C1-2: No significant abnormality. C2-3: No significant abnormality. C3-4: There is a mild to moderate size central disc protrusion or disc herniation. This obscures the anterior epidural space and appears to be resting on the anterior surface of the cord without definite cord compression.. C4-5: There appears to be a diffuse disc bulge centrally and to the left of midline obscuring the anterior epidural space without cord compression or spinal stenosis.. C5-6: No significant abnormality. C6-7: No significant abnormality. C7-T1: No significant abnormality. Other: No additional findings. IMPRESSION: No evidence of fracture or subluxation. Degenerative disc disease C3-4, C4-5 with disc bulges or protrusions as described above. These appear to be resting on the anterior surface of the cord without cord compression. No other abnormalities are seen..
--- NOTE | 2016-10-18 23:01 | History and Physical Report ---
History of Present Illness Date of examination: 10/19/16 History of present illness: 40-year-old woman with a history of end-stage renal disease on dialysis Monday , , Monday, hypertension, diabetes, CHF, comes to emergency room with complaints of dizzy and almost passing out. The patient was sent to the emergency room last for lab work, here hemoglobin was low at that time , after waiting several hours the patient left Review Of Systems: Constitutional: no fever, chills, weight loss Ears, eyes, nose, mouth and throat: no nasal congestion, no nasal discharge, no sinus pressure, blurry vision, diplopia Neck: No neck pain or rigidity. Cardiovascular: chest pain, orthopnea, palpitations Respiratory: No shortness of breath, cough Gastrointestinal: no abdominal pain hematochezia Genitourinary : no dysuria, frequency , hematuria Musculoskeletal: no joint swelling or muscle ache Integumentary: no rash, no pruritis Neurological: no parathesias, focal weakness Endocrine: no cold or heat intolerance, no polyuria or polydipsia Hematologic/Lymphatic: no easy bruising, no easy bleeding, no gland swelling Allergic/Immunologic: no urticaria, no angioedema. PAST MEDICAL HISTORY:hypertension, diabetes, CHF,esrd PAST SURGICAL HISTORY: Left BKA, AV fistula, AICD, 3rd toe amputated on the right foot FAMILY HISTORY: Hypertension, diabetes SOCIAL HISTORY: Social alcohol, no tobacco, drugs Medications and Allergies Allergies Allergy/AdvReac Type Severity Reaction Status Date / Time iodine Allergy Swelling Verified 10/18/16 12:53 levofloxacin [From Levaquin] Allergy Swelling Verified 10/18/16 12:53 linezolid [From Zyvox] Allergy Hives Verified 10/18/16 12:53 morphine Allergy Swelling Verified 10/18/16 12:53 Sulfa (Sulfonamide Allergy Swelling Verified 10/18/16 12:53 Antibiotics) vancomycin Allergy Swelling Verified 10/18/16 12:53 Home Medications Medication Instructions Recorded Confirmed Last Taken Type Dulcolax tab 4 mg PO DAILY 09/12/16 09/12/16 09/05/16 History Gabapentin 400 mg PO BID 09/12/16 09/12/16 09/11/16 History Lisinopril 40 mg PO BID 09/12/16 09/12/16 09/11/16 History Renvela 800 mg PO AC 09/12/16 09/12/16 09/10/16 History Percocet 10/325 mg 1 tab PO Q8H PRN #14 09/13/16 Unknown Rx Exam - Physical Exam Narrative exam: Gen. appearance: Patient lying in bed in no acute distress HEENT: Normocephalic/atraumatic, pupils equal round reactive to light, extra alkaline movement intact, no scleral icterus, no JVD or thyromegaly or nodule, neck is supple, mucous membrane moist, no erythema or exudate Heart: S1-S2, regular rate and rhythm Lungs: Clear to auscultation bilateral breathing comfortable Abdomen: Positive bowel sounds, nontender, nondistended, no organomegaly Extremities: No edema, cyanosis, clubbing Neuro:: Oriented 3 , cranial nerves II-12 intact, speech, motor intact Skin: No rash, nodules, warm dry - Constitutional Vitals: Temp Pulse Resp BP Pulse Ox 98.6 F 87 26 H 178/107 95 10/18/16 22:00 10/18/16 22:21 10/18/16 22:21 10/18/16 22:21 10/18/16 22:21 Results - Labs CBC & Chem 7: 10/18/16 13:19 10/18/16 13:19 Labs: Abnormal lab results 10/18/16 10/18/16 10/18/16 Range/Units 13:19 13:19 13:19 RBC 2.37 L (3.65-5.03) M/mm3 Hgb 6.8 L (10.1-14.3) gm/dl Hct 21.2 L (30.3-42.9) % RDW 19.5 H (13.2-15.2) % Eos % (Auto) 5.5 H (0.0-4.3) % Lymph # 0.8 L (1.2-5.4) K/mm3 Seg Neutrophils % 72.0 H (40.0-70.0) % Sodium 146 H (137-145) mmol/L BUN 63 H (7-17) mg/dL Creatinine 13.3 H (0.7-1.2) mg/dL Glucose 111 H (65-100) mg/dL Albumin 3.4 L (3.9-5) g/dL Crossmatch See Detail - Imaging and Cardiology CT Scan - head: report reviewed Assessment and Plan Assessment Symptomatic anemia End-stage renal disease on dialysis Hypertension uncontrolled Diabetes type 2 CHF, stable Asthma Plan Admit to medicine transfuse 1 prbc, transfuse another at dialysis Consult renal, start IV hydralazine Check fingersticks and initiate insulin sliding scale Continue appropiate outpatient medications Start dvt prophalaxis CT C-spine reviewed
[2016-10-19] MEDS: ROXICODONE PO PRN ×2 (02:00→22:51)
[2016-10-19] MEDS: PERCOCET 5/325 PO PRN ×3 (02:00→22:52)
--- NOTE | 2016-10-19 08:23 | XRay Report ---
LEFT SHOULDER RADIOGRAPHS INDICATION: Shoulder injury, pain after fall. COMPARISON: None similar. FINDINGS: Frontal and Y views of the left shoulder, 3 projections demonstrate normal humeral head contour, well positioned against the glenoid. Mild greater tuberosity degenerative spurring. Acromioclavicular gap of approximately 1 cm with possible prior distal clavicular resection. Preserved scapular contour. Normal visualized soft tissues, left ribs and lung with an ICD noted. CONCLUSION: No acute left shoulder radiographic abnormality with few degenerative and iatrogenic changes, as described. Thank you for the opportunity to participate in this patient's care.
--- NOTE | 2016-10-19 10:36 | Admit Criteria Form ---
Admission Criteria Documentation: ANEMIA, IRON DEFICIENCY OR UNSPECIFIED Clinical Indications for Inpatient Care (Place 'X' for any and all applicable criteria): Admission is indicated for ANY ONE of the following(1)(2)(3)(4)(5)(6)(7): [X] I. Inpatient admission required rather than observation care (Also use Anemia, Iron Deficiency or Unspecified: Observation Care guideline as appropriate) because of ANY ONE of the following: [] a) Hemodynamic instability that is severe or persistent [] b) Active bleeding that cannot be rapidly controlled [] c) CVS symptoms (i.e., dyspnea, chest pain, heart failure) that are severe or persistent [X] d) Neurologic symptoms (i.e., cognitive impairment, recurrent syncope or near syncope) that are severe or persistent [] e) Cardiac arrhythmias of immediate concern [] f) Acute peripheral ischemia (e.g., pulseless, cool, mottled, or cyanotic extremity) [] g) High-risk low platelet count [] h) Acute renal failure [] i) Ongoing transfusion for blood loss (greater than 2 units) [] j) IV fluid to replace significant ongoing (eg, >24 hours) losses (> 3 L/m2 per day) [] k) Pulmonary artery catheter monitoring [] l) Supplemental oxygen or respiratory treatments for over 24 hours that are performable only in acute inpatient setting [] m) Immediate inpatient surgery [X] n) Other condition, treatment or monitoring requiring inpatient admission [] II Active massive hemorrhage [] III. Active hemolysis with rapidly progressive anemia [A](6) Extended stay beyond goal length of stay may be needed for (17)(18) []a) Diagnosed cause of anemia requiring longer hospitalization (eg, active GI bleeding, immune hemolysis requiring electrophoresis, complications of malignancy requiring acute care []b) Continued emergent anemia indicators (23) []c) Transfusion reactions []d) Associated leukopenia or thrombocytopenia needing inpatient care []e) Active comorbidities (eg, renal failure, heart failure) The original [facility] Care Guidelines content created by [facility] has been revised. The portions of the content which have been revised are identified through the use of italic text or in bold. [facility] has neither reviewed nor approved the modified material. All other unmodified content is copyright [facility]. Please see references footnoted in the original [facility] edition 2016 Admission Criteria Met: Yes
[2016-10-19 11:05] LABS: Iron 66 ug/dL (37-170); Lactate Dehydrogenase 206 units/L (91-180); Total Iron Binding Capacity 142 mcg/dL (250-450)
--- NOTE | 2016-10-19 12:32 | Consultation ---
History of Present Illness - Reason for Consult Consult date: 10/19/16 end stage renal disease - History of Present Illness This is a 40 year old female who presented to the hospital yesterday for a chief complaint of having low hemoglobin levels. Patient states that when she went to her dialysis clinic on Monday she was told she had a low hemoglobin and was sent to the E.R. Patient's last hemodialysis was on . Patient states she came to [facility]. on Monday evening but left due to waiting long and so decided to return yesterday. On evaluation patient was noted to have an HGB of 6.8. Patient has received 1 unit of PRBC's and will receive another today with HD. Patient receives hemodialysis at [facility] under under Dr. Campos. We are being consulted for management of this patient's ESRD Past History Past Medical History: anemia, diabetes, dialysis, hypertension, renal failure Past Surgical History: Other (Left AVG placement) Social history: no significant social history Family history: no significant family history Medications and Allergies Allergies Allergy/AdvReac Type Severity Reaction Status Date / Time iodine Allergy Swelling Verified 10/18/16 12:53 levofloxacin [From Levaquin] Allergy Swelling Verified 10/18/16 12:53 linezolid [From Zyvox] Allergy Hives Verified 10/18/16 12:53 morphine Allergy Swelling Verified 10/18/16 12:53 Sulfa (Sulfonamide Allergy Swelling Verified 10/18/16 12:53 Antibiotics) vancomycin Allergy Swelling Verified 10/18/16 12:53 Home Medications Medication Instructions Recorded Confirmed Last Taken Type Dulcolax tab 4 mg PO DAILY 09/12/16 09/12/16 09/05/16 History Gabapentin 400 mg PO BID 09/12/16 09/12/16 09/11/16 History Lisinopril 40 mg PO BID 09/12/16 09/12/16 09/11/16 History Renvela 800 mg PO AC 09/12/16 09/12/16 09/10/16 History Percocet 10/325 mg 1 tab PO Q8H PRN #14 09/13/16 Unknown Rx Active Meds: Active Medications Oxycodone HCl (Roxicodone) 5 mg PO Q4H PRN PRN Reason: Pain, Moderate (4-6) Last Admin: 10/19/16 02:00 Dose: 5 mg Oxycodone/Acetaminophen (Percocet 5/325) 1 tab PO Q4H PRN PRN Reason: Pain, Moderate (4-6) Last Admin: 10/19/16 09:04 Dose: 1 tab Review of Systems Constitutional: no weight loss, no weight gain, no fever, no chills, no sweats Ears, nose, mouth and throat: no ear pain, no ear discharge, no tinnitis, no decreased hearing, no nose pain Breasts: no normal, no change in shape, no swelling, no mass Cardiovascular: no orthopnea, no palpitations, no rapid/irregular heart beat, no edema, no syncope, no lightheadedness Respiratory: no cough with sputum, no excessive sputum, no hemoptysis, no shortness of breath, no dyspnea on exertion Gastrointestinal: no nausea, no vomiting, no diarrhea, no constipation, no change in bowel habits, no hematemesis Musculoskeletal: no neck stiffness, no neck pain, no shooting arm pain, no arm numbness/tingling, no low back pain, no shooting leg pain Integumentary: no rash, no pruritis, no redness, no sores, no wounds Neurological: no transient paralysis, no paralysis, no weakness, no parathesias , no numbness, no tingling Psychiatric: no memory loss, no change in sleep habits, no sleep disturbances, no insomnia, no hypersomnia, no change in appetite Endocrine: no heat intolerance, no polyphagia, no excessive thirst, no polydipsia, no polyuria Hematologic/Lymphatic: no easy bruising, no easy bleeding, no lymphadenopathy, no lymphedema Exam - Vital Signs Vital signs: Vital Signs Temp Pulse Resp BP Pulse Ox 98.9 F 93 H 20 162/86 94 10/18/16 12:53 10/18/16 12:53 10/18/16 12:53 10/18/16 12:53 10/18/16 12:53 - General Appearance General appearance: well-developed, well-nourished, appears stated age EENT: ATNC, PERRL, hearing intact, vision intact Neck: Present: neck supple, trachea midline Respiratory: Clear to Ascultation Heart: regular, S1S2 Gastrointestinal: Present: normoactive bowel sounds Integumentary: no rash, warm and dry Neurologic: alert and oriented x3 Musculoskeletal: Present: other (Has Left BKA, Left AVG has positive bruit and thrill) Psychiatric: cooperative Results - Lab Results 10/18/16 13:19 10/18/16 13:19 Most recent lab results Calcium 9.1 mg/dL (8.4-10.2) 10/18/16 13:19 Assessment and Plan - Patient Problems (1) End stage renal disease Current Visit: Yes Status: Acute Plan to address problem: Hemodialysis has been ordered for today with 1 unit of PRBC's transfusion Monitor H/H. Epogen 20, 00units ordered with HD as well to help with Anemia Fluid restriction of 1 liter per day Renally dose medications Obtain daily weights Monitor I/O's Assess dialysis needs daily (2) Anemia in chronic kidney disease, on chronic dialysis Current Visit: No Status: Acute Plan to address problem: Epogen 20,000 units with HD Transfuse 1 units of PRBC with HD today (3) Hypertensive CKD (chronic kidney disease) Current Visit: No Status: Acute Plan to address problem: HD today, resume anti-hypertensive agents (4) Diabetes mellitus Current Visit: No Status: Acute Qualifiers: Diabetes mellitus type: D Diabetes mellitus complication status: D Diabetes mellitus complication detail: D Diabetic retinopathy severity: D Proliferative retinopathy type: P Diabetes mellitus macular edema: D Diabetes mellitus half-way insulin use: D Laterality: L Chronic kidney disease stage: C Plan to address problem: As per Attending
[2016-10-19] MEDS ORDERED: NACL 0.9% 100 ML IV PRN (12:58)
--- NOTE | 2016-10-19 13:41 | Progress Note ---
Assessment and Plan Assessment and plan: 40-year-old woman with a history of end-stage renal disease on dialysis Monday , , Monday, hypertension, diabetes, CHF, comes to emergency room with complaints of dizzy and almost passing out. The patient was sent to the emergency room last for lab work, here hemoglobin was low at that time , after waiting several hours the patient left. Per the patient she has heavy menstrual cycles lasting more than 9 days. She recently relocated from [place] and is setting up follow-up with doctors here in [place]. She does have a planned SALES LEAD follow-up soon. Patient also has a history of congestive heart failure, left BKA. Has had repeated paracentesis in the past for ascites. Symptomatic anemia * Secondary to menorrhagia * Status post 1 unit packed red blood cells awaiting one more units. * Symptoms improving. Repeat H&H in a.m. Avoid NSAIDs. * SALES LEAD follow-up outpatient. End-stage renal disease on dialysis * A nephrology consultation Hypertension uncontrolled * Restart home medications. Continue hydralazine when necessary. Diabetes type 2 * Sliding-scale coverage with Accu-Cheks. Asthma * Stable continue when necessary medications DJD * Secondary to renal disease. Recommend continuing calcium and vitamin D. DVT and GI prophylaxis Plan of care discussed with the patient in detail will repeat H&H in a.m. and if stable patient can be discharged. History Interval history: Patient seen and examined in no acute distress Hospitalist Physical - Physical exam Narrative exam: VITAL SIGNS: Reviewed. GENERAL: The patient appeared well nourished and normally developed. Vital signs as documented. HEAD: No signs of head trauma. EYES: Pupils are equal. Extraocular motions intact. EARS: Hearing grossly intact. MOUTH: Oropharynx is normal. NECK: No adenopathy, no JVD. CHEST: Chest with clear breath sounds bilaterally. No wheezes, rales, or rhonchi. CARDIAC: Regular rate and rhythm. S1 and S2, without murmurs, gallops, or rubs. VASCULAR: No Edema. Peripheral pulses normal and equal in all extremities. ABDOMEN: Soft, without detectable tenderness. No sign of distention. No rebound or guarding, and no masses palpated. Bowel Sounds normal. MUSCULOSKELETAL: Left BKA otherwise Good range of motion of all major joints. Extremities without clubbing, cyanosis or edema. NEUROLOGIC EXAM: Alert and oriented x 3. No focal sensory or strength deficits. Speech normal. Follows commands. PSYCHIATRIC: Mood normal. SKIN: No rash or lesions. - Constitutional Vitals: Temp Pulse Resp BP Pulse Ox 98.2 F 85 15 169/107 100 10/19/16 08:20 10/19/16 08:20 10/19/16 08:20 10/19/16 08:20 10/19/16 08:20 Results - Labs CBC & Chem 7: 10/18/16 13:19 10/18/16 13:19 Labs: Laboratory Last Values WBC 5.1 K/mm3 (4.5-11.0) 10/18/16 13:19 RBC 2.37 M/mm3 (3.65-5.03) L 10/18/16 13:19 Hgb 6.8 gm/dl (10.1-14.3) L 10/18/16 13:19 Hct 21.2 % (30.3-42.9) L 10/18/16 13:19 MCV 90 fl (79-97) 10/18/16 13:19 MCH 29 pg (28-32) 10/18/16 13:19 MCHC 32 % (30-34) 10/18/16 13:19 RDW 19.5 % (13.2-15.2) H 10/18/16 13:19 Plt Count 175 K/mm3 (140-440) 10/18/16 13:19 Lymph % (Auto) 16.6 % (13.4-35.0) 10/18/16 13:19 Hendry % (Auto) 5.1 % (0.0-7.3) 10/18/16 13:19 Eos % (Auto) 5.5 % (0.0-4.3) H 10/18/16 13:19 Baso % (Auto) 0.8 % (0.0-1.8) 10/18/16 13:19 Lymph # 0.8 K/mm3 (1.2-5.4) L 10/18/16 13:19 Hendry # 0.3 K/mm3 (0.0-0.8) 10/18/16 13:19 Eos # 0.3 K/mm3 (0.0-0.4) 10/18/16 13:19 Baso # 0.0 K/mm3 (0.0-0.1) 10/18/16 13:19 Seg Neutrophils % 72.0 % (40.0-70.0) H 10/18/16 13:19 Seg Neutrophils # 3.7 K/mm3 (1.8-7.7) 10/18/16 13:19 Sodium 146 mmol/L (137-145) H 10/18/16 13:19 Potassium 4.8 mmol/L (3.6-5.0) 10/18/16 13:19 Chloride 102.4 mmol/L (98-107) 10/18/16 13:19 Carbon Dioxide 23 mmol/L (22-30) 10/18/16 13:19 Anion Gap 25 mmol/L 10/18/16 13:19 BUN 63 mg/dL (7-17) H 10/18/16 13:19 Creatinine 13.3 mg/dL (0.7-1.2) H 10/18/16 13:19 Estimated GFR 4 ml/min 10/18/16 13:19 BUN/Creatinine Ratio 4.73 % 10/18/16 13:19 Glucose 111 mg/dL (65-100) H 10/18/16 13:19 Calcium 9.1 mg/dL (8.4-10.2) 10/18/16 13:19 Iron 66 ug/dL (37-170) 10/19/16 10:29 TIBC 142 mcg/dL (250-450) L 10/19/16 10:29 Total Bilirubin 0.30 mg/dL (0.1-1.2) 10/18/16 13:19 AST 11 units/L (5-40) 10/18/16 13:19 ALT 8 units/L (7-56) 10/18/16 13:19 Alkaline Phosphatase 59 units/L (35-129) 10/18/16 13:19 Lactate Dehydrogenase 206 units/L (91-180) H 10/19/16 10:29 Total Protein 6.8 g/dL (6.3-8.2) 10/18/16 13:19 Albumin 3.4 g/dL (3.9-5) L 10/18/16 13:19 Albumin/Globulin Ratio 1.0 % 10/18/16 13:19 Blood Type O POSITIVE 09/12/17 13:19 Antibody Screen Negative 10/18/16 13:19 Crossmatch See Detail 10/18/16 13:19 - Imaging and Cardiology Imaging and Cardiology: Degenerative joint disease and disc disease on x-ray and imaging studies with CT.
[2016-10-20 06:23] LABS: Hematocrit 25.2 % (30.3-42.9); Hemoglobin 8.4 gm/dl (10.1-14.3); Mean Corpuscular HGB Conc 33 % (30-34); Mean Corpuscular Hemoglobin 29 pg (28-32); Mean Corpuscular Volume 88 fl (79-97); Platelet Count 174 K/mm3 (140-440); Red Blood Count 2.87 M/mm3 (3.65-5.03); Red Cell Distribution Width 18.2 % (13.2-15.2); White Blood Count 5.7 K/mm3 (4.5-11.0)
[2016-10-20 06:40] LABS: BUN/Creatinine Ratio 4.29; Chloride 98.3 mmol/L (98-107); Potassium 4.2 mmol/L (3.6-5.0)
[2016-10-20] MEDS: ROXICODONE PO PRN (07:15)
[2016-10-20] MEDS: PERCOCET 5/325 PO PRN (07:16)
--- NOTE | 2016-10-20 09:29 | Progress Note ---
Assessment and Plan (1) End stage renal disease Current Visit: Yes Status: Acute Plan to address problem: HD again today for clearance and volume removal can be discharged from renal standpoint post HD Fluid restriction of 1 liter per day Renally dose medications Obtain daily weights Monitor I/O's Assess dialysis needs daily (2) Anemia in chronic kidney disease, on chronic dialysis Current Visit: No Status: Acute Plan to address problem: Epogen 20,000 units with HD s/p 1 units of PRBC 10/19 (3) Hypertensive CKD (chronic kidney disease) Current Visit: No Status: Acute Plan to address problem: will adjust meds as needed, UF with HD (4) Diabetes mellitus Current Visit: No Status: Acute Qualifiers: Diabetes mellitus type: D Diabetes mellitus complication status: D Diabetes mellitus complication detail: D Diabetic retinopathy severity: D Proliferative retinopathy type: P Diabetes mellitus macular edema: D Diabetes mellitus jail insulin use: D Laterality: L Chronic kidney disease stage: C Plan to address problem: As per primary team Subjective Date of service: 10/20/16 Principal diagnosis: ESRD on HD Interval history: tolerated HD well yesterday, feels better Objective - Vital Signs Vital signs: Vital Signs - 12hr 10/19/16 10/19/16 10/19/16 22:02 22:51 22:52 Temperature 98.6 F Pulse Rate 91 H Respiratory 18 18 18 Rate Blood Pressure 168/82 O2 Sat by Pulse 93 Oximetry 10/19/16 10/19/16 10/20/16 23:51 23:52 01:23 Temperature 98.1 F Pulse Rate 93 H Respiratory 18 18 18 Rate Blood Pressure 167/96 O2 Sat by Pulse 90 Oximetry 10/20/16 10/20/16 10/20/16 07:07 07:12 07:15 Temperature 98.5 F Pulse Rate 85 Respiratory 16 20 Rate Blood Pressure 162/91 162/91 O2 Sat by Pulse 97 Oximetry 10/20/16 07:16 Temperature Pulse Rate Respiratory 20 Rate Blood Pressure O2 Sat by Pulse Oximetry - General Appearance General appearance: well-developed, well-nourished, appears stated age EENT: ATNC, PERRL, mucous membranes moist Neck: no JVD, no carotid bruit Respiratory: Present: Clear to Ascultation. Absent: Rales, Ronchi Cardiology: regular, S1S2 Gastrointestinal: normoactive bowel sounds, no tenderness, no distended, no guarding Integumentary: no rash, warm and dry Neurologic: no focal deficit, no asterixis, alert and oriented x3 Musculoskeletal: other (L AVF with thrill and bruit, no edema) Psychiatric: mood/affect appropriate, cooperative - Lab 10/20/16 05:58 10/20/16 05:58 Most recent lab results Calcium 9.0 mg/dL (8.4-10.2) 10/20/16 05:58
--- NOTE | 2016-10-20 09:36 | Discharge Summary ---
Providers - Providers Date of Admission: 10/18/16 23:01 Attending physician: BELL INIGUEZ MD 10/19/16 09:00 Consult to Physician [CONS] Routine Consulting Provider: KEELEY LAIRD Reason For Exam: esrd Place consult to:: dr. laird Notified:: office Phone number called:: Was contact made?: Yes If yes, spoke with:: [place] Time called:: 09:23 Primary care physician: DISTRICT MANAGER [employer] Hospitalization Reason for admission: near syncope Condition: Stable Hospital course: 40-year-old woman with a history of end-stage renal disease on dialysis Monday , , Monday, hypertension, diabetes, CHF, comes to emergency room with complaints of dizzy and almost passing out. The patient was sent to the emergency room last for lab work, here hemoglobin was low at that time , after waiting several hours the patient left. Per the patient she has heavy menstrual cycles lasting more than 9 days. She recently relocated from [place] and is setting up follow-up with doctors here in [place]. She does have a planned FAMILY SPECIALIST follow-up soon. Patient also has a history of congestive heart failure, left BKA. Has had repeated paracentesis in the past for ascites. Symptomatic anemia * Secondary to menorrhagia * Status post 2 unit packed red blood cells * Symptoms improved. . * FAMILY SPECIALIST follow-up outpatient. Near Syncope * Secondary to Anemia * Resolved End-stage renal disease on dialysis * Continued dialysis with Lead Portfolio Manager support in house Hypertension uncontrolled * CONTROLLED ON HOME MEDS. Diabetes type 2 * Sliding-scale coverage with Accu-Cheks. Asthma * Stable continue when necessary medications DJD * Secondary to renal disease. Recommend continuing calcium and vitamin D. Disposition: TO HOME OR SELFCARE Time spent for discharge: 35 mins Core Measure Documentation - Palliative Care Palliative Care/ Comfort Measures: Not Applicable - Core Measures Any of the following diagnoses?: none - VTE Discharge Requirements Deep Vein Thrombosis/Pulmonary Embolism Present on Admission: No Exam - Physical Exam Narrative exam: VITAL SIGNS: Reviewed. GENERAL: The patient appeared well nourished and normally developed. Vital signs as documented. HEAD: No signs of head trauma. EYES: Pupils are equal. Extraocular motions intact. EARS: Hearing grossly intact. MOUTH: Oropharynx is normal. NECK: No adenopathy, no JVD. CHEST: Chest with clear breath sounds bilaterally. No wheezes, rales, or rhonchi. CARDIAC: Regular rate and rhythm. S1 and S2, without murmurs, gallops, or rubs. VASCULAR: No Edema. Peripheral pulses normal and equal in all extremities. ABDOMEN: Soft, without detectable tenderness. No sign of distention. No rebound or guarding, and no masses palpated. Bowel Sounds normal. MUSCULOSKELETAL: Left BKA otherwise Good range of motion of all major joints. Extremities without clubbing, cyanosis or edema. NEUROLOGIC EXAM: Alert and oriented x 3. No focal sensory or strength deficits. Speech normal. Follows commands. PSYCHIATRIC: Mood normal. SKIN: No rash or lesions. - Constitutional Vitals: Temp Pulse Resp BP Pulse Ox 98.5 F 85 20 162/91 97 10/20/16 07:12 10/20/16 07:12 10/20/16 07:16 10/20/16 07:12 10/20/16 07:12 Plan Activity: advance as tolerated, fall precautions Diet: renal Special Instructions: record daily BP diary Follow up with: EMILY OBANDO MD [Primary Care Provider] - 3-5 Days TERESA MORENO MD [Staff Physician] - 7 Days SOTO STACY MD [Staff Physician] - 7 Days Prescriptions: Dulcolax tab 4 mg PO DAILY #30 Ferrous Sulfate [Feosol 325 MG tab] 325 mg PO TID #30 tablet
[2016-10-20] MEDS ORDERED: NACL 0.9 (PRIMING MACHINE ONLY DIALYSIS) MC ONE (14:03)
[2016-10-20 16:32] VITALS: BP 160/80
== END 2016-10-20 17:36 | disposition home or self-care (01) | DRG 760 ==
LOC: ED 11:45 → 3A 23:01
PROVIDERS: ADMIT Internal Medicine; ATTEND Internal Medicine
PROC: 30233N1 Transfusion of Nonautologous Red Blood Cells into Peripheral Vein, Percutaneous Approach (ICD-10-PCS; principal; 2016-10-18)
PROC: 5A1D60Z (ICD-10-PCS; 2016-10-19)
DX: N92.0 Excessive and frequent menstruation with regular cycle (principal); N18.6 End stage renal disease; I13.2 Hypertensive heart and chronic kidney disease with heart failure and with stage 5 chronic kidney disease, or end stage renal disease; D64.9 Anemia, unspecified; I50.9 Heart failure, unspecified; D63.1 Anemia in chronic kidney disease; X58.XXXA Exposure to other specified factors, initial encounter; S40.012A Contusion of left shoulder, initial encounter; E11.40 Type 2 diabetes mellitus with diabetic neuropathy, unspecified; J45.909 Unspecified asthma, uncomplicated; E11.22 Type 2 diabetes mellitus with diabetic chronic kidney disease; M19.90 Unspecified osteoarthritis, unspecified site; G43.909 Migraine, unspecified, not intractable, without status migrainosus; Z90.49 Acquired absence of other specified parts of digestive tract; Z99.2 Dependence on renal dialysis; Z89.512 Acquired absence of left leg below knee; Z79.899 Other long term (current) drug therapy; Y93.89 Activity, other specified; Y92.89 Other specified places as the place of occurrence of the external cause; Y99.8 Other external cause status; Z95.810 Presence of automatic (implantable) cardiac defibrillator; Z89.421 Acquired absence of other right toe(s); Z82.49 Family history of ischemic heart disease and other diseases of the circulatory system; Z83.3 Family history of diabetes mellitus; Z88.5 Allergy status to narcotic agent; Z88.2 Allergy status to sulfonamides; Z91.041 Radiographic dye allergy status
CPT/HCPCS: 36415; 36430; 70450; 72125; 80048; 80053; 82962; 83010; 83550; 83615; 85025; 85027; 86850; 86900; 86901; 86920; 93005; 93010; J0885; J7030; J7040; P9016

== ENCOUNTER 2017-01-09 08:12 | Outpatient (CLI) | payer MEDICARE ==
[2017-01-09] MEDS ORDERED: XYLOCAINE TOPICAL 4% TP ONE ×2 (09:11→15:43)
[2017-01-09] MEDS ORDERED: SILVER NITRATE TP ONE ×2 (10:08→15:43)
== END 2017-01-09 08:13 | disposition home or self-care (01) ==
LOC: WOUND 08:12
PROVIDERS: ATTEND Surgery
DX: E11.621 Type 2 diabetes mellitus with foot ulcer (principal); L97.512 Non-pressure chronic ulcer of other part of right foot with fat layer exposed; E11.22 Type 2 diabetes mellitus with diabetic chronic kidney disease; I13.2 Hypertensive heart and chronic kidney disease with heart failure and with stage 5 chronic kidney disease, or end stage renal disease; I50.9 Heart failure, unspecified; N18.6 End stage renal disease; F32.9 Major depressive disorder, single episode, unspecified; L84 Corns and callosities; Z72.89 Other problems related to lifestyle; Z89.421 Acquired absence of other right toe(s); Z89.512 Acquired absence of left leg below knee
CPT/HCPCS: 11042; G0463

== ENCOUNTER 2017-01-16 09:31 | Outpatient (CLI) | payer MEDICARE ==
[2017-01-16] MEDS ORDERED: XYLOCAINE TOPICAL 4% TP ONE ×2 (09:53→10:08)
== END 2017-01-16 09:32 | disposition home or self-care (01) ==
LOC: WOUND 09:31
PROVIDERS: ATTEND Internal Medicine
DX: E11.621 Type 2 diabetes mellitus with foot ulcer (principal); L97.511 Non-pressure chronic ulcer of other part of right foot limited to breakdown of skin; L89.892 Pressure ulcer of other site, stage 2; E11.22 Type 2 diabetes mellitus with diabetic chronic kidney disease; I13.2 Hypertensive heart and chronic kidney disease with heart failure and with stage 5 chronic kidney disease, or end stage renal disease; I50.9 Heart failure, unspecified; N18.6 End stage renal disease; Z99.2 Dependence on renal dialysis; Z89.421 Acquired absence of other right toe(s); Z72.89 Other problems related to lifestyle

== ENCOUNTER 2017-08-12 17:39 | Emergency (ER) | payer MEDICARE ==
[2017-08-12 18:13] VITALS: BP 162/93
--- NOTE | 2017-08-12 18:27 | Emergency Department Report ---
HPI - General Chief Complaint: Wound/Laceration Time Seen by Provider: 08/12/17 18:15 - HPI HPI: Room 24 The patient is a 41-year-old female presenting with a chief complaint of bleeding dialysis fistula. The patient states she was at dialysis today and after receiving dialysis she continued to bleed from her left upper extremity fistula. A pressure dressing was placed fistula and the patient was transferred to the ED for further evaluation. Patient states she feels fine and denies pain of any type. Location: Left upper extremity Duration: Constant since approximately 17:40 Quality: Bleeding Severity: Moderate Modifying factors: [see above] Context: [see above] Mode of transportation: [not driving] ED Past Medical Hx - Past Medical History Previous Medical History?: Yes Hx Hypertension: Yes Hx Congestive Heart Failure: Yes Hx Diabetes: Yes Hx Renal Disease: Yes (ESRD/dialysis T, Thur, Sat via left AV Fistula) Hx Arthritis: Yes Hx Headaches / Migraines: Yes Hx Asthma: Yes (bronchitis) Additional medical history: Diabetic neuropathy - Surgical History Past Surgical History?: Yes Hx Internal Defibrillator: Yes Hx Cholecystectomy: Yes Additional Surgical History: Peritoneal catheters, Left arm AV graft, Haroon retina repair, Lasil surgery in right eye, Left below knee amputation, Right foot with third toe removed, Peritoneal cath removal, - Family History Family history: no significant - Social History Smoking Status: Never Smoker Substance Use Type: None (denies illicit drug use), Alcohol (occasional) - Medications Home Medications: Home Medications Medication Instructions Recorded Confirmed Last Taken Type Gabapentin 400 mg PO QHS 09/12/16 08/12/17 09/11/16 History Lisinopril 40 mg PO QHS 09/12/16 08/12/17 09/11/16 History Renvela 800 mg PO TID 09/12/16 08/12/17 09/10/16 History Dulcolax tab 4 mg PO DAILY #30 10/20/16 08/12/17 Unknown Rx Ferrous Sulfate [Feosol 325 MG tab] 325 mg PO TID #30 tablet 10/20/16 08/12/17 Unknown Rx ALPRAZolam [Xanax] 1 mg PO QDAY PRN 08/12/17 08/12/17 Unknown History B Complex 11/Folic/C/Biot/Zinc 1 each PO QDAY 08/12/17 08/12/17 Unknown History [Dialyvite with Zinc Tablet] HYDROcodone/APAP 10-325 [[place] 1 each PO Q8HR PRN 08/12/17 08/12/17 Unknown History 10/325] Hydralazine HCl 50 mg PO Q8H 08/12/17 08/12/17 Unknown History Metoprolol Tartrate 50 mg PO QAM 08/12/17 08/12/17 Unknown History Propranolol HCl 80 mg PO BID 08/12/17 08/12/17 Unknown History ED Review of Systems ROS: Stated complaint: BLEEDING PORT Other details as noted in HPI Constitutional: denies: fever Eyes: denies: eye pain ENT: denies: throat pain Respiratory: denies: other (no pleurisy) Cardiovascular: denies: chest pain Endocrine: denies: unexplained weight gain Gastrointestinal: denies: abdominal pain Musculoskeletal: denies: back pain Skin: denies: change in color Neurological: denies: headache Physical Exam - Physical Exam Vital Signs: Vital Signs 08/12/17 17:56 Temperature 98.2 F Pulse Rate 72 Respiratory 18 Rate Blood Pressure 162/93 [Right] O2 Sat by Pulse 100 Oximetry Physical Exam: GENERAL: The patient is well-developed well-nourished female lying on stretcher not appearing to be in acute distress. [] HEENT: Normocephalic. Atraumatic. Extraocular motions are intact. Patient has moist mucous membranes. NECK: Supple. Trachea midline CHEST/LUNGS: Clear to auscultation. There is no respiratory distress noted. HEART/CARDIOVASCULAR: Regular. There is no tachycardia. There is no gallop rub or murmur. ABDOMEN: Abdomen is soft, nontender. Patient has normal bowel sounds. There is no abdominal distention. SKIN: There is no rash. There is no edema. There is no diaphoresis. Left upper extremity fistula has pressure dressing in place. NEURO: The patient is awake, alert, and oriented. The patient is cooperative. The patient has normal speech MUSCULOSKELETAL: There is no evidence of acute injury. ED Course Vital Signs 08/12/17 17:56 Temperature 98.2 F Pulse Rate 72 Respiratory 18 Rate Blood Pressure 162/93 [Right] O2 Sat by Pulse 100 Oximetry - Reevaluation(s) Reevaluation #1: 08/12/17 19:51 Patient not in room ED Medical Decision Making - Lab Data Result diagrams: 08/12/17 18:30 08/12/17 18:30 - Differential Diagnosis coagulopathy, platelet dysfunction, Critical care attestation.: If time is entered above; I have spent that time in minutes in the direct care of this critically ill patient, excluding procedure time. ED Disposition Clinical Impression: Bleeding from dialysis shunt Disposition: ELOPED Is pt being admited?: No Does the pt Need Aspirin: No Condition: Undetermined Referrals: PRIMARY CARE, [Primary Care Provider] - 3-5 Days Time of Disposition: 20:02 (patient eloped)
[2017-08-12 18:54] LABS: Basophils % (Auto) 0.6 % (0.0-1.8); Eosinophils # (Auto) 0.2 K/mm3 (0.0-0.4); Eosinophils % (Auto) 5.6 % (0.0-4.3); Hematocrit 33.1 % (30.3-42.9); Hemoglobin 10.1 gm/dl (10.1-14.3); INR 1.01 (0.87-1.13); Lymphocytes # (Auto) 1.3 K/mm3 (1.2-5.4); Lymphocytes % (Auto) 33.9 % (13.4-35.0); Mean Corpuscular HGB Conc 31 % (30-34); Mean Corpuscular Hemoglobin 27 pg (28-32); Mean Corpuscular Volume 90 fl (79-97); Monocytes # (Auto) 0.3 K/mm3 (0.0-0.8); Monocytes % (Auto) 8.4 % (0.0-7.3); Red Blood Count 3.69 M/mm3 (3.65-5.03)
[2017-08-12 18:55] LABS: Calcium 9.3 mg/dL (8.4-10.2); Partial Thromboplastin Time 20.7 Sec. (24.2-36.6)
[2017-08-12] MEDS ORDERED: DDAVP 25 MCG in NACL 0.9% 50 ML IV ONE (19:00)
[2017-08-12 19:07] LABS: Platelet Count 111 K/mm3 (140-440); Red Cell Distribution Width 23.8 % (13.2-15.2)
== END 2017-08-12 20:54 | disposition left against medical advice (07) ==
LOC: ED 17:39
DX: T85.838A Hemorrhage due to other internal prosthetic devices, implants and grafts, initial encounter (principal); M19.90 Unspecified osteoarthritis, unspecified site; G43.909 Migraine, unspecified, not intractable, without status migrainosus; J45.909 Unspecified asthma, uncomplicated; E11.22 Type 2 diabetes mellitus with diabetic chronic kidney disease; I13.2 Hypertensive heart and chronic kidney disease with heart failure and with stage 5 chronic kidney disease, or end stage renal disease; I50.9 Heart failure, unspecified; N18.6 End stage renal disease; E11.40 Type 2 diabetes mellitus with diabetic neuropathy, unspecified; Z99.2 Dependence on renal dialysis; Z90.49 Acquired absence of other specified parts of digestive tract; Z91.041 Radiographic dye allergy status; Z88.1 Allergy status to other antibiotic agents; Z88.6 Allergy status to analgesic agent
CPT/HCPCS: 36415; 80048; 85025; 85610; 85730; 99283; J2597

== ENCOUNTER 2017-09-25 10:02 | Outpatient (CLI) | payer MEDICARE ==
[2017-09-25] MEDS ORDERED: XYLOCAINE TOPICAL 4% TP ONE ×2 (10:41→11:31)
== END 2017-09-25 10:03 | disposition home or self-care (01) ==
LOC: WOUND 10:02
PROVIDERS: ATTEND Surgery
DX: E11.621 Type 2 diabetes mellitus with foot ulcer (principal); L97.511 Non-pressure chronic ulcer of other part of right foot limited to breakdown of skin; L89.892 Pressure ulcer of other site, stage 2; E11.22 Type 2 diabetes mellitus with diabetic chronic kidney disease; I13.2 Hypertensive heart and chronic kidney disease with heart failure and with stage 5 chronic kidney disease, or end stage renal disease; I50.9 Heart failure, unspecified; N18.6 End stage renal disease; Z99.2 Dependence on renal dialysis; Z89.421 Acquired absence of other right toe(s); Z72.89 Other problems related to lifestyle

== ENCOUNTER 2017-10-25 08:17 | Outpatient (CLI) | payer MEDICARE ==
[2017-10-25] MEDS ORDERED: SILVER NITRATE TP ONE ×2 (08:41→09:04)
== END 2017-10-25 08:18 | disposition home or self-care (01) ==
LOC: WOUND 08:17
PROVIDERS: ATTEND Surgery
DX: E11.621 Type 2 diabetes mellitus with foot ulcer (principal); L97.511 Non-pressure chronic ulcer of other part of right foot limited to breakdown of skin; L89.890 Pressure ulcer of other site, unstageable; E11.22 Type 2 diabetes mellitus with diabetic chronic kidney disease; I13.2 Hypertensive heart and chronic kidney disease with heart failure and with stage 5 chronic kidney disease, or end stage renal disease; I50.9 Heart failure, unspecified; N18.6 End stage renal disease; Z99.2 Dependence on renal dialysis; Z89.421 Acquired absence of other right toe(s); Z72.89 Other problems related to lifestyle

== ENCOUNTER 2017-11-02 09:29 | Outpatient (CLI) | payer MEDICARE ==
[2017-11-02] MEDS ORDERED: XYLOCAINE TOPICAL 4% TP ONE ×2 (10:03→10:29)
[2017-11-02] MEDS ORDERED: SILVER NITRATE TP ONE ×2 (10:14→10:29)
== END 2017-11-02 09:30 | disposition home or self-care (01) ==
LOC: WOUND 09:29
PROVIDERS: ATTEND Surgery
DX: E11.621 Type 2 diabetes mellitus with foot ulcer (principal); L97.511 Non-pressure chronic ulcer of other part of right foot limited to breakdown of skin; L89.890 Pressure ulcer of other site, unstageable; E11.22 Type 2 diabetes mellitus with diabetic chronic kidney disease; I13.2 Hypertensive heart and chronic kidney disease with heart failure and with stage 5 chronic kidney disease, or end stage renal disease; I50.9 Heart failure, unspecified; N18.6 End stage renal disease; Z99.2 Dependence on renal dialysis; Z89.421 Acquired absence of other right toe(s); Z72.89 Other problems related to lifestyle

== ENCOUNTER 2018-03-31 06:23 | Inpatient (IN) | payer MEDICARE ==
[2018-03-31] MEDS ORDERED: TORADOL IV ONE (07:14)
[2018-03-31] MEDS ORDERED: NACL 0.9% 1000 ML 1,000 ML IV ONE ×2 (07:15→09:28)
[2018-03-31 07:37] LABS: Basophils % (Auto) 0.6 % (0.0-1.8); Eosinophils # (Auto) 0.1 K/mm3 (0.0-0.4); Eosinophils % (Auto) 1.3 % (0.0-4.3); Hematocrit 35.2 % (30.3-42.9); Hemoglobin 11.3 gm/dl (10.1-14.3); Lymphocytes # (Auto) 0.7 K/mm3 (1.2-5.4); Lymphocytes % (Auto) 11.3 % (13.4-35.0); Mean Corpuscular HGB Conc 32 % (30-34); Mean Corpuscular Volume 99 fl (79-97); Monocytes # (Auto) 0.7 K/mm3 (0.0-0.8); Monocytes % (Auto) 10.8 % (0.0-7.3); Platelet Count 134 K/mm3 (140-440); Red Blood Count 3.55 M/mm3 (3.65-5.03)
[2018-03-31 07:50] LABS: Calcium 8.7 mg/dL (8.4-10.2)
--- NOTE | 2018-03-31 09:05 | Cat Scan Report ---
FINAL REPORT EXAM: CT HEAD/BRAIN WO CON HISTORY: frequesnt falls right sided weakness TECHNIQUE: CT of the Head without IV contrast. PRIORS: None currently available. FINDINGS: There is no evidence for acute ischemia. There is no hemorrhage. There is no midline shift. There is no hydrocephalus. There is no mass. Age appropriate knowles-white matter attenuation is noted. There is no calvarial fracture. The temporal bones demonstrate aerated mastoid air cells. The middle ears appear unremarkable. Paranasal sinuses are unremarkable. Globes are intact. IMPRESSION: No acute intracranial findings.
--- NOTE | 2018-03-31 09:41 | Emergency Department Report ---
ED General Adult HPI - General Chief complaint: Extremity Injury, Upper Stated complaint: RT HIP PAIN Time Seen by Provider: 03/31/18 07:08 Source: patient Mode of arrival: Ambulatory Limitations: No Limitations - History of Present Illness Initial comments: Patient is a 42-year-old Mexican female with past medical history of hypertension and end-stage renal disease who states that she's having significant pain on the right side. Patient states that 2 days ago she had a fall. Patient has a left BKA from 2006 she went to put on her prosthesis and she states her right leg gave out and she fell. Patient fell to the right hip has been having aching pain in the right hip and right thigh since. Patient states that the pain is so bad she is having difficulty moving or walking. Patient had another fall yesterday and was on the ground lying on her right side for approximately 3+ hours. Patient denies any slurred speech difficulty coming up with words or weakness or pain to the left side. Patient is stating that her right side feels limp however with further questioning she states that it feels like because of pain and not because it is true isolated weakness. Patient states the pain is 8 out of 10 in severity as aching and throbbing. Severity scale (0 -10): 6 - Related Data Home Medications Medication Instructions Recorded Confirmed Last Taken Gabapentin 400 mg PO QHS 09/12/16 08/12/17 09/11/16 Lisinopril 40 mg PO QHS 09/12/16 08/12/17 09/11/16 Renvela 800 mg PO TID 09/12/16 08/12/17 09/10/16 ALPRAZolam [Xanax] 1 mg PO QDAY PRN 08/12/17 08/12/17 Unknown B Complex 11/Folic/C/Biot/Zinc 1 each PO QDAY 08/12/17 08/12/17 Unknown [Dialyvite with Zinc Tablet] HYDROcodone/APAP 10-325 [[place] 1 each PO Q8HR PRN 08/12/17 08/12/17 Unknown 10-325 mg TAB] Hydralazine HCl 50 mg PO Q8H 08/12/17 08/12/17 Unknown Metoprolol Tartrate 50 mg PO QAM 08/12/17 08/12/17 Unknown Propranolol HCl 80 mg PO BID 08/12/17 08/12/17 Unknown Previous Rx's Medication Instructions Recorded Last Taken Type Dulcolax tab 4 mg PO DAILY #30 10/20/16 Unknown Rx Ferrous Sulfate [Feosol 325 MG tab] 325 mg PO TID #30 tablet 10/20/16 Unknown Rx Allergies Allergy/AdvReac Type Severity Reaction Status Date / Time iodine Allergy Swelling Verified 05/12/17 12:49 levofloxacin [From Levaquin] Allergy Swelling Verified 05/12/17 12:49 linezolid [From Zyvox] Allergy Hives Verified 05/12/17 12:49 morphine Allergy Swelling Verified 05/12/17 12:49 Sulfa (Sulfonamide Allergy Swelling Verified 05/12/17 12:49 Antibiotics) vancomycin Allergy Swelling Verified 05/12/17 12:49 ED Review of Systems ROS: Stated complaint: RT HIP PAIN Other details as noted in HPI Comment: All other systems reviewed and negative ED Past Medical Hx - Past Medical History Previous Medical History?: Yes Hx Hypertension: Yes Hx Congestive Heart Failure: Yes Hx Diabetes: Yes Hx Liver Disease: No Hx Renal Disease: Yes (T, TH, Sat dialysis, due for dialysis today) Hx Sickle Cell Disease: No Hx Arthritis: Yes Hx Headaches / Migraines: Yes Hx Seizures: No Hx Kidney Stones: No Hx Asthma: No Hx COPD: No Hx Tuberculosis: No Hx HIV: No Additional medical history: Diabetic neuropathy - Surgical History Hx Internal Defibrillator: Yes Hx Cholecystectomy: Yes Additional Surgical History: Peritoneal catheters, Left arm AV graft, Haroon retina repair, Lasik surgery in right eye, L BKA, Right foot with third toe removed, Peritoneal cath removal - Social History Smoking Status: Never Smoker Substance Use Type: Alcohol - Medications Home Medications: Home Medications Medication Instructions Recorded Confirmed Last Taken Type Gabapentin 400 mg PO QHS 09/12/16 08/12/17 09/11/16 History Lisinopril 40 mg PO QHS 09/12/16 08/12/17 09/11/16 History Renvela 800 mg PO TID 09/12/16 08/12/17 09/10/16 History Dulcolax tab 4 mg PO DAILY #30 10/20/16 08/12/17 Unknown Rx Ferrous Sulfate [Feosol 325 MG tab] 325 mg PO TID #30 tablet 10/20/16 08/12/17 Unknown Rx ALPRAZolam [Xanax] 1 mg PO QDAY PRN 08/12/17 08/12/17 Unknown History B Complex 11/Folic/C/Biot/Zinc 1 each PO QDAY 08/12/17 08/12/17 Unknown History [Dialyvite with Zinc Tablet] HYDROcodone/APAP 10-325 [[place] 1 each PO Q8HR PRN 08/12/17 08/12/17 Unknown History 10-325 mg TAB] Hydralazine HCl 50 mg PO Q8H 08/12/17 08/12/17 Unknown History Metoprolol Tartrate 50 mg PO QAM 08/12/17 08/12/17 Unknown History Propranolol HCl 80 mg PO BID 08/12/17 08/12/17 Unknown History ED Physical Exam - General Limitations: No Limitations General appearance: alert, in no apparent distress - Head Head exam: Present: atraumatic, normocephalic - Eye Eye exam: Present: normal appearance - ENT ENT exam: Present: mucous membranes moist - Neck Neck exam: Present: normal inspection - Respiratory Respiratory exam: Present: normal lung sounds bilaterally. Absent: respiratory distress, wheezes, rales, rhonchi - Cardiovascular Cardiovascular Exam: Present: regular rate, normal rhythm. Absent: systolic murmur, diastolic murmur, rubs, gallop - GI/Abdominal GI/Abdominal exam: Present: soft, normal bowel sounds. Absent: distended, tenderness, guarding, rebound - Extremities Exam Extremities exam: Present: normal inspection, other (patient with a left [id number] amputation appears well-healed. Patient's right thigh shows tenderness to palpation but no swelling or bruising is present at this time.) - Back Exam Back exam: Present: normal inspection - Neurological Exam Neurological exam: Present: alert, oriented X3 - Psychiatric Psychiatric exam: Present: normal affect, normal mood - Skin Skin exam: Present: warm, dry, intact, normal color. Absent: rash ED Course Vital Signs 03/31/18 06:33 Temperature 98.6 F Pulse Rate 88 Respiratory 12 Rate Blood Pressure 147/82 ED Medical Decision Making - Lab Data Result diagrams: 03/31/18 07:20 03/31/18 07:20 Lab Results 03/31/18 03/31/18 03/31/18 Range/Units 07:20 07:20 07:20 WBC 6.4 (4.5-11.0) K/mm3 RBC 3.55 L (3.65-5.03) M/mm3 Hgb 11.3 (10.1-14.3) gm/dl Hct 35.2 (30.3-42.9) % MCV 99 H (79-97) fl MCH 32 (28-32) pg MCHC 32 (30-34) % RDW 18.0 H (13.2-15.2) % Plt Count 134 L (140-440) K/mm3 Lymph % (Auto) 11.3 L (13.4-35.0) % [place] % (Auto) 10.8 H (0.0-7.3) % Eos % (Auto) 1.3 (0.0-4.3) % Baso % (Auto) 0.6 (0.0-1.8) % Lymph # 0.7 L (1.2-5.4) K/mm3 [place] # 0.7 (0.0-0.8) K/mm3 Eos # 0.1 (0.0-0.4) K/mm3 Baso # 0.0 (0.0-0.1) K/mm3 Seg Neutrophils % 76.0 H (40.0-70.0) % Seg Neutrophils # 4.9 (1.8-7.7) K/mm3 Sodium 138 (137-145) mmol/L Potassium 4.6 (3.6-5.0) mmol/L Chloride 99.0 (98-107) mmol/L Carbon Dioxide 22 (22-30) mmol/L Anion Gap 22 mmol/L BUN 37 H (7-17) mg/dL Creatinine 8.6 H (0.7-1.2) mg/dL Estimated GFR 6 ml/min BUN/Creatinine Ratio 4 % Glucose 65 (65-100) mg/dL Calcium 8.7 (8.4-10.2) mg/dL Total Creatine Kinase 7715 H (30-135) units/L Patient's creatinine has increased since her last lab studies - Radiology Data interpreted by me: X-ray of the pelvis and right femur show no acute fractures. CT of the head shows no acute process. - Medical Decision Making Patient is a 42-year-old female with his stage renal disease who makes very little urine is presenting with right sided pain and decreased range of motion secondary to pain. Patient's had multiple falls in the last several days. Patient lying on the ground for 3+ hours yesterday. The patient does have elevated CK and it does appear to be in rhabdomyolysis. The patient has received 1 L of IV fluids and does not seem to be in fluid overload therefore an other liter and ordered we'll continue to monitor her fluid status. Patient's thread roller is Dr. Alvarenga. Patient to be admitted to the hospitalist service for dialysis and fluid management to control the rhabdomyolysis. Critical Care Time: Yes (30) Critical care attestation.: If time is entered above; I have spent that time in minutes in the direct care of this critically ill patient, excluding procedure time. ED Disposition Clinical Impression: ESRD (end stage renal disease) on dialysis Rhabdomyolysis Qualifiers: Rhabdomyolysis type: traumatic Encounter type: initial encounter Qualified Code(s): T79.6XXA - Traumatic ischemia of muscle, initial encounter Disposition: 09 OP ADMIT IP TO THIS HOSP Is pt being admited?: Yes Does the pt Need Aspirin: No Condition: Stable Referrals: PRIMARY CARE, [Primary Care Provider] - 3-5 Days Time of Disposition: 09:42
--- NOTE | 2018-03-31 09:45 | XRay Report ---
FINAL REPORT EXAM: XR HIP 2-3V RT HISTORY: S/P fall right hip pain TECHNIQUE: Single view pelvis and 2 view(s) right hip. PRIORS: None currently available. FINDINGS: PELVIS: Sacroiliac joints are unremarkable. There is no acute dislocation. There is no acute fracture. There is no evidence for healing fracture. There is no cortical destruction to suggest osteomyelitis. There are no suspicious osseous lesions. IUD in pelvis. RIGHT HIP: Joints in anatomical alignment. No significant arthrosis. There is no acute dislocation. There is no acute fracture. There is no evidence for healing fracture. There is no cortical destruction to suggest osteomyelitis. There are no suspicious osseous lesions. There are no radiopaque foreign objects. IMPRESSION: No acute osseous findings.
--- NOTE | 2018-03-31 09:46 | XRay Report ---
FINAL REPORT EXAM: XR FEMUR 2+V RT HISTORY: pain after fall TECHNIQUE: Two views right femur. PRIORS: None currently available. FINDINGS: There is no acute fracture. There is no evidence for healing fracture. There is no acute dislocation. There is no cortical destruction to suggest osteomyelitis. There are no suspicious osseous lesions. There are no radiopaque foreign objects. IMPRESSION: No acute osseous findings.
[2018-03-31] MEDS ORDERED: ZOFRAN IV PRN (10:50)
[2018-03-31] MEDS ORDERED: SODIUM CHLORIDE FLUSH SYRINGE 10 ML IV PRN (10:50)
[2018-03-31] MEDS ORDERED: NACL 0.9% 100 ML IV PRN (11:26)
[2018-03-31] MEDS ORDERED: HEPARIN 10,000 UNITS/10 ML IV PRN (11:26)
--- NOTE | 2018-03-31 11:30 | Consultation ---
History of Present Illness - Reason for Consult Consult date: 03/31/18 end stage renal disease Requesting physician: ELIJAH BERRY - History of Present Illness 42-year-old lady who is well-known to me with a history of diabetes mellitus, hypertension and end-stage disease on hemodialysis on a Monday, and Monday schedule. Patient says she fell on . She states that she woke up at about 4 AM, and put on a prosthesis. On getting up, she felt like her leg was not there. She was assisted back to bed and she slept all day and Monday. She was wobbly when she did get up to go to the bathroom. Last night at 7 PM she was trying to come to the hospital trying to put on her clothes when she lost her balance and fell on to the right side over a chair. She has pain in the right side now and it became numb. Family members found her asleep on the bed partly on the chair and they called the ambulance Past History Past Medical History: arthritis, diabetes, ESRD, GERD, heart failure, hyperten markell, PVD, other (history of kidney stones and recurrent urinary tract infections) Past Surgical History: Other (AV fistula placement, permacath placement, below- knee amputation) Social history: lives with family. denies: smoking, alcohol abuse, prescription drug abuse, IV drug use Family history: diabetes, hypertension Medications and Allergies Allergies Allergy/AdvReac Type Severity Reaction Status Date / Time iodine Allergy Swelling Verified 05/12/17 12:49 levofloxacin [From Levaquin] Allergy Swelling Verified 05/12/17 12:49 linezolid [From Zyvox] Allergy Hives Verified 05/12/17 12:49 morphine Allergy Swelling Verified 05/12/17 12:49 Sulfa (Sulfonamide Allergy Swelling Verified 05/12/17 12:49 Antibiotics) vancomycin Allergy Swelling Verified 05/12/17 12:49 Home Medications Medication Instructions Recorded Confirmed Last Taken Type Gabapentin 400 mg PO QHS 09/12/16 03/31/18 09/11/16 History Lisinopril 40 mg PO QHS 09/12/16 03/31/18 09/11/16 History Renvela 800 mg PO TID 09/12/16 03/31/18 09/10/16 History Dulcolax tab 4 mg PO DAILY #30 09/14/17 02/23/19 Unknown Rx Ferrous Sulfate [Feosol 325 MG tab] 325 mg PO TID #30 tablet 10/20/16 03/31/18 Unknown Rx B Complex 11/Folic/C/Biot/Zinc 1 each PO QDAY 08/12/17 03/31/18 Unknown History [Dialyvite with Zinc Tablet] Propranolol HCl 80 mg PO BID 08/12/17 03/31/18 Unknown History ALPRAZolam [Xanax] 1 mg PO QDAY PRN #30 tablet 04/07/18 Unknown Rx Acetaminophen [Acetaminophen TAB] 650 mg PO Q4H PRN tablet 04/07/18 Unknown Rx Folic Acid/Vit B Comp W-C [Renal 1 cap PO QDAY capsule 04/07/18 Unknown Rx Caps] Gabapentin [Neurontin] 100 mg PO QHS #30 capsule 04/07/18 Unknown Rx HYDROcodone/APAP 10-325 [[place] 1 each PO Q8HR PRN #60 tablet 04/07/18 Unknown Rx 10-325 mg TAB] Hydralazine HCl 50 mg PO Q8H #90 tablet 04/07/18 Unknown Rx Lisinopril [Zestril TAB] 40 mg PO QHS #30 tablet 04/07/18 Unknown Rx Metoprolol Tartrate 50 mg PO QAM #30 tablet 04/07/18 Unknown Rx Propranolol [Inderal] 80 mg PO BID #60 tablet 04/07/18 Unknown Rx Sevelamer Carbonate [Renvela] 800 mg PO AC tablet 04/07/18 Unknown Rx hydrALAZINE [Apresoline TAB] 50 mg PO Q8HR #90 tablet 04/07/18 Unknown Rx oxyCODONE /ACETAMINOPHEN [Percocet 1 tab PO Q6H PRN #30 tablet 04/07/18 Unknown Rx 5/325 mg] Active Meds: Active Medications Acetaminophen (Tylenol) 650 mg PO Q4H PRN PRN Reason: Pain MILD(1-3)/Fever >100.5/JENKINS Enoxaparin Sodium (Lovenox) 30 mg SUB-Q QDAY DANIELLE Ondansetron HCl (Zofran) 4 mg IV Q8H PRN PRN Reason: Nausea And Vomiting Sodium Chloride (Sodium Chloride Flush Syringe 10 Ml) 10 ml IV BID DANIELLE Sodium Chloride (Sodium Chloride Flush Syringe 10 Ml) 10 ml IV PRN PRN PRN Reason: LINE FLUSH Review of Systems All systems: negative (Constitutional: no fever or chills. No anorexia or weight loss. HEENT: No sore throat but admits to sinus drainage no hearing or vision impairment . Cardiovascular: No chest pain, shortness of breath, palpitations, lower extremity swelling but admits to occasional dizziness. Respiratory: No cough, sputum, shortness of breath, hemoptysis or wheezing. Gastrointestinal: Admits to nausea, no vomiting, has occasional diarrhea. No Abdominal pain, hematemesis or melena. Genitourinary: She makes very little urine and an Mr. soreness in the vaginal area. No frequency urgency dysuria or hematuria. hematologic: No abnormal bleeding or bruising. Integumentary: Admits to itching but no rash. Neurological: No headache no focal weakness or numbness, no syncope or seizures. Musculoskeletal: Admits to pain on the right side. No stiffness. Psychiatry: no anxiety or depression but she was hallucinating for a day lying in bed) Exam - Vital Signs Vital signs: Vital Signs Temp Pulse Resp BP 98.6 F 88 12 147/82 03/31/18 06:33 03/31/18 06:33 03/31/18 06:33 03/31/18 06:33 - Physical Exam Narrative exam: Middle aged gentleman, comfortably lying in bed in no acute distress HEENT: NCAT, pink oral mucous membrane Neck: Supple, no venous distention CVS: S1S2 RRR with no murmur, rub or gallop Chest: Clear to auscultation Abdomen: Protuberant, soft, nontender, no organomegaly, bowel sounds are present Extremities: mild edema Neuro: Awake, alert no focal deficits Results - Lab Results 04/05/18 03:05 04/05/18 05:39 Most recent lab results Calcium 8.7 mg/dL (8.4-10.2) 03/31/18 07:20 Assessment and Plan - Patient Problems (1) End stage renal disease on dialysis Status: Chronic Plan to address problem: Hemodialysis for fluid removal on surgery clearance. (2) Fall Status: Acute Plan to address problem: Possibly related to gait imbalance but need to exclude syncope (3) Altered mental status Status: Acute Plan to address problem: ?Toxic encephalopathy. Follow-up mental status (4) Hypertensive chronic kidney disease with stage 5 chronic kidney disease or end stage renal disease Status: Acute Plan to address problem: Follow-up blood pressure on current medications (5) Type 2 diabetes mellitus with diabetic chronic kidney disease Status: Acute Plan to address problem: Blood sugar management by primary attending (6) Anemia in chronic kidney disease, on chronic dialysis Status: Chronic Plan to address problem: Given Erythropoetin on dialysis. Follow-up hemoglobin
--- NOTE | 2018-03-31 12:46 | History and Physical Report ---
History of Present Illness Date of examination: 03/31/18 Date of admission: 03/31/18 09:43 Chief complaint: hip pain History of present illness: Patient is a 42-year-old [place] female with past medical history of hypertension and end-stage renal disease who states that she's having significant pain on the right side. Patient states that 2 days ago she had a fa ll. Patient has a left BKA from 2006 she went to put on her prosthesis and she states her right leg gave out and she fell. Patient fell to the right hip has been having aching pain in the right hip and right thigh since. Patient states that the pain is so bad she is having difficulty moving or walking. Patient had another fall yesterday and was on the ground lying on her right side for approxi mately 3+ hours. Patient denies any slurred speech difficulty coming up with words or weakness or pain to the left side. Patient is stating that her right side feels limp however with further questioning she states that it feels like because of pain and not because it is true isolated weakness. Patient states the pain is 8 out of 10 in severity as aching and throbbing. Dr. Vázquez reports pt missed HD on . No CP or SOB Past History Past Medical History: ESRD, heart failure, hypertension (neuropathy, pulm htn,) Past Surgical History: Other (AICD, bka) Social history: no significant social history Family history: no significant family history Medications and Allergies Allergies Allergy/AdvReac Type Severity Reaction Status Date / Time iodine Allergy Swelling Verified 05/12/17 12:49 levofloxacin [From Levaquin] Allergy Swelling Verified 05/12/17 12:49 linezolid [From Zyvox] Allergy Hives Verified 05/12/17 12:49 morphine Allergy Swelling Verified 05/12/17 12:49 Sulfa (Sulfonamide Allergy Swelling Verified 05/12/17 12:49 Antibiotics) vancomycin Allergy Swelling Verified 05/12/17 12:49 Home Medications Medication Instructions Recorded Confirmed Last Taken Type Gabapentin 400 mg PO QHS 09/12/16 08/12/17 09/11/16 History Lisinopril 40 mg PO QHS 09/12/16 08/12/17 09/11/16 History Renvela 800 mg PO TID 09/12/16 08/12/17 09/10/16 History Dulcolax tab 4 mg PO DAILY #30 10/20/16 08/12/17 Unknown Rx Ferrous Sulfate [Feosol 325 MG tab] 325 mg PO TID #30 tablet 10/20/16 08/12/17 Unknown Rx ALPRAZolam [Xanax] 1 mg PO QDAY PRN 08/12/17 08/12/17 Unknown History B Complex 11/Folic/C/Biot/Zinc 1 each PO QDAY 08/12/17 08/12/17 Unknown History [Dialyvite with Zinc Tablet] HYDROcodone/APAP 10-325 [[place] 1 each PO Q8HR PRN 08/12/17 08/12/17 Unknown History 10-325 mg TAB] Hydralazine HCl 50 mg PO Q8H 08/12/17 08/12/17 Unknown History Metoprolol Tartrate 50 mg PO QAM 08/12/17 08/12/17 Unknown History Propranolol HCl 80 mg PO BID 08/12/17 08/12/17 Unknown History Active Meds: Active Medications Acetaminophen (Tylenol) 650 mg PO Q4H PRN PRN Reason: Pain MILD(1-3)/Fever >100.5/JENKINS Diphenhydramine HCl (Benadryl) 25 mg PO Q6H PRN PRN Reason: Itching Enoxaparin Sodium (Lovenox) 30 mg SUB-Q QDAY DANIELLE Heparin Sodium (Porcine) (Heparin 10,000 Units/10 Ml) 1,000 unit IV SONIDO PRN PRN Reason: hemodialysis Sodium Chloride (Nacl 0.9%) 100 mls @ 999 mls/hr IV SONIDO PRN PRN Reason: Hypotension Ondansetron HCl (Zofran) 4 mg IV Q8H PRN PRN Reason: Nausea And Vomiting Oxycodone/Acetaminophen (Percocet 5/325) 1 tab PO Q6H PRN PRN Reason: Pain, Moderate (4-6) Sodium Chloride (Sodium Chloride Flush Syringe 10 Ml) 10 ml IV BID DANIELLE Sodium Chloride (Sodium Chloride Flush Syringe 10 Ml) 10 ml IV PRN PRN PRN Reason: LINE FLUSH Review of Systems All systems: negative Exam - Constitutional Vitals: Temp Pulse Resp BP Pulse Ox 98.4 F 76 18 119/60 96 03/31/18 10:32 03/31/18 10:32 03/31/18 10:32 03/31/18 10:32 03/31/18 10:32 General appearance: Present: no acute distress, well-nourished - EENT Eyes: Present: PERRL ENT: hearing intact, clear oral mucosa - Neck Neck: Present: supple, normal ROM - Respiratory Respiratory effort: normal Respiratory: bilateral: CTA - Cardiovascular Heart Sounds: Present: S1 & S2. Absent: rub, click - Extremities Extremities: pulses symmetrical, No edema Peripheral Pulses: within normal limits - Abdominal General gastrointestinal: Present: soft, non-tender, non-distended, normal bowel sounds Female genitourinary: Present: normal - Integumentary Integumentary: Present: clear, warm, dry - Musculoskeletal Musculoskeletal: gait normal, strength equal bilaterally - Psychiatric Psychiatric: appropriate mood/affect, intact judgment & insight - Neurologic Neurologic: CNII-XII intact, moves all extremities Results - Labs CBC & Chem 7: 03/31/18 07:20 03/31/18 07:20 Labs: Laboratory Last Values WBC 6.4 K/mm3 (4.5-11.0) 03/31/18 07:20 RBC 3.55 M/mm3 (3.65-5.03) L 03/31/18 07:20 Hgb 11.3 gm/dl (10.1-14.3) 03/31/18 07:20 Hct 35.2 % (30.3-42.9) 03/31/18 07:20 MCV 99 fl (79-97) H 03/31/18 07:20 MCH 32 pg (28-32) 03/31/18 07:20 MCHC 32 % (30-34) 03/31/18 07:20 RDW 18.0 % (13.2-15.2) H 03/31/18 07:20 Plt Count 134 K/mm3 (140-440) L 03/31/18 07:20 Lymph % (Auto) 11.3 % (13.4-35.0) L 03/31/18 07:20 [place] % (Auto) 10.8 % (0.0-7.3) H 03/31/18 07:20 Eos % (Auto) 1.3 % (0.0-4.3) 03/31/18 07:20 Baso % (Auto) 0.6 % (0.0-1.8) 03/31/18 07:20 Lymph # 0.7 K/mm3 (1.2-5.4) L 03/31/18 07:20 [place] # 0.7 K/mm3 (0.0-0.8) 03/31/18 07:20 Eos # 0.1 K/mm3 (0.0-0.4) 03/31/18 07:20 Baso # 0.0 K/mm3 (0.0-0.1) 03/31/18 07:20 Seg Neutrophils % 76.0 % (40.0-70.0) H 03/31/18 07:20 Seg Neutrophils # 4.9 K/mm3 (1.8-7.7) 03/31/18 07:20 Sodium 138 mmol/L (137-145) 03/31/18 07:20 Potassium 4.6 mmol/L (3.6-5.0) 03/31/18 07:20 Chloride 99.0 mmol/L (98-107) 03/31/18 07:20 Carbon Dioxide 22 mmol/L (22-30) 03/31/18 07:20 Anion Gap 22 mmol/L 03/31/18 07:20 BUN 37 mg/dL (7-17) H 03/31/18 07:20 Creatinine 8.6 mg/dL (0.7-1.2) H 03/31/18 07:20 Estimated GFR 6 ml/min 03/31/18 07:20 BUN/Creatinine Ratio 4 % 03/31/18 07:20 Glucose 65 mg/dL (65-100) 03/31/18 07:20 Calcium 8.7 mg/dL (8.4-10.2) 03/31/18 07:20 Total Creatine Kinase 7715 units/L (30-135) H 03/31/18 07:20 Assessment and Plan Assessment and plan: Right hip pain. x-rays negative. PT eval. ESRD. Continue Monday, and Monday hemodialysis schedule per nephrology. Nephrology consulted Nonischemic cardiomyopathy. Echo done 03/2017 showed EF 35%, atrial septal aneurysm present, patent PFO, LA and RA severely dilated, mild MR, mod TR, mild AR, restrictive diastolic filling, RV mod dilated, mod pulm HTN. Chronic systolic heart failure. Compensated. Continue hemodialysis for negative fluid balance. AICD. Pulmonary hypertension. Continue supportive care. PFO/atrial septal aneurysm. Hypertension. Continue antihypertensive medications. Peripheral neuropathy. Continue gabapentin. Left BKA. DVT prophylaxis. Lovenox.
[2018-03-31] MEDS: PERCOCET 5/325 PO PRN ×2 (13:17→21:04)
[2018-03-31] MEDS: BENADRYL PO PRN ×2 (13:17→21:04)
[2018-03-31] MEDS ORDERED: XANAX PO PRN (15:28)
[2018-03-31] MEDS: FEOSOL PO SCH ×2 (16:43→21:00)
[2018-03-31] MEDS ORDERED: NON-FORMULARY (Hydralazine Hcl [Hydralazine Hcl] 50 MG) PO SCH (17:00)
[2018-03-31] MEDS: RENVELA PO SCH (17:35)
[2018-03-31] MEDS ORDERED: RENVELA 800 MG PO SCH (20:00)
[2018-03-31] MEDS: APRESOLINE PO SCH (21:01)
[2018-03-31] MEDS: SODIUM CHLORIDE FLUSH SYRINGE 10 ML IV SCH (21:04)
[2018-03-31] MEDS: ZESTRIL PO SCH (21:04)
[2018-03-31] MEDS: INDERAL PO SCH (21:04)
[2018-03-31] MEDS: NEURONTIN PO SCH (21:04)
[2018-03-31] MEDS ORDERED: GABAPENTIN 400 MG PO SCH (22:00)
[2018-03-31] MEDS ORDERED: PROPRANOLOL HCL 80 MG PO SCH (22:00)
[2018-03-31] MEDS ORDERED: NON-FORMULARY (Lisinopril 40 MG) PO SCH (22:00)
[2018-04-01] MEDS: PERCOCET 5/325 PO PRN ×2 (02:34→12:35)
[2018-04-01] MEDS: BENADRYL PO PRN ×2 (02:34→12:39)
[2018-04-01] MEDS: APRESOLINE PO SCH ×3 (05:35→22:00)
[2018-04-01] MEDS ORDERED: ZOSYN/NS 3.375GM/50ML 3.375 GM/50 ML BAG IV ONE (08:00)
[2018-04-01] MEDS: TYLENOL PO PRN ×3 (08:52→17:35)
[2018-04-01] MEDS: RENVELA PO SCH ×3 (08:52→17:34)
[2018-04-01] MEDS: FEOSOL PO SCH ×3 (08:52→23:48)
[2018-04-01 09:00] LABS: Hematocrit 34.6 % (30.3-42.9); Hemoglobin 11.2 gm/dl (10.1-14.3); Mean Corpuscular HGB Conc 32 % (30-34); Mean Corpuscular Volume 98 fl (79-97); Platelet Count 150 K/mm3 (140-440); Red Blood Count 3.53 M/mm3 (3.65-5.03); Red Cell Distribution Width 18.3 % (13.2-15.2)
[2018-04-01 09:17] LABS: Calcium 8.4 mg/dL (8.4-10.2)
[2018-04-01] MEDS ORDERED: NON-FORMULARY (B Complex 11/Folic/C/Biot/Zinc [Dialyvite With Zinc Tablet] 1 EACH) PO SCH (10:00)
[2018-04-01] MEDS: Renal Caps PO SCH (10:32)
[2018-04-01] MEDS: LOVENOX SUB-Q SCH (10:32)
[2018-04-01 10:35] LABS: Band Neutrophils # (Manual) 0.1 K/mm3; Basophils % (Manual) 0 % (0.0-1.8); Ovalocytes Few; Platelet Estimate Consistent w Auto; Poikilocytosis Few; Total Cells Counted 100
[2018-04-01] MEDS: INDERAL PO SCH ×2 (10:39→22:00)
[2018-04-01] MEDS: LOPRESSOR PO SCH (10:40)
[2018-04-01] MEDS: SODIUM CHLORIDE FLUSH SYRINGE 10 ML IV SCH ×2 (10:41→22:00)
[2018-04-01] MEDS ORDERED: VANCOMYCIN 1,750 MG in NACL 0.9% 500 ML 500 ML IV ONE (14:30)
--- NOTE | 2018-04-01 14:40 | Progress Note ---
Assessment and Plan Assessment and plan: SIRS. Pt with fever this morning. F/U blood cx. Check lactate. Empiric Vanc and Zosyn started. No obvious signs of infection. Right hip pain. Pt. reports pain much improved. x-rays negative. PT eval. ESRD. Continue Monday, and Monday hemodialysis schedule per nephrology. Nephrology consulted Nonischemic cardiomyopathy. Echo done 03/2017 showed EF 35%, atrial septal aneurysm present, patent PFO, LA and RA severely dilated, mild MR, mod TR, mild AR, restrictive diastolic filling, RV mod dilated, mod pulm HTN. Chronic systolic heart failure. Compensated. Continue hemodialysis for negative fluid balance. AICD. Pulmonary hypertension. Continue supportive care. PFO/atrial septal aneurysm. Hypertension. Continue antihypertensive medications. Peripheral neuropathy. Continue gabapentin. Left BKA. DVT prophylaxis. Lovenox. History Interval history: Pt reports hip pain is better Hospitalist Physical - Constitutional Vitals: Temp Pulse Resp BP Pulse Ox 102.8 F H 92 H 15 114/63 90 04/01/18 13:16 04/01/18 13:16 04/01/18 13:16 04/01/18 13:16 04/01/18 13:16 General appearance: Present: no acute distress, well-nourished - EENT Eyes: Present: PERRL, EOM intact ENT: hearing intact, clear oral mucosa, dentition normal - Neck Neck: Present: supple, normal ROM - Respiratory Respiratory effort: normal Respiratory: bilateral: CTA - Cardiovascular Rhythm: regular Heart Sounds: Present: S1 & S2. Absent: gallop, rub - Extremities Extremities: no ischemia, No edema, Full ROM - Abdominal General gastrointestinal: soft, non-tender, non-distended, normal bowel sounds - Integumentary Integumentary: Present: clear, warm, dry - Neurologic Neurologic: CNII-XII intact, moves all extremities Results - Labs CBC & Chem 7: 04/01/18 08:30 04/01/18 08:30 Labs: Laboratory Last Values WBC 5.7 K/mm3 (4.5-11.0) 04/01/18 08:30 RBC 3.53 M/mm3 (3.65-5.03) L 04/01/18 08:30 Hgb 11.2 gm/dl (10.1-14.3) 04/01/18 08:30 Hct 34.6 % (30.3-42.9) 04/01/18 08:30 MCV 98 fl (79-97) H 04/01/18 08:30 MCH 32 pg (28-32) 04/01/18 08:30 MCHC 32 % (30-34) 04/01/18 08:30 RDW 18.3 % (13.2-15.2) H 04/01/18 08:30 Plt Count 150 K/mm3 (140-440) 04/01/18 08:30 Lymph % (Auto) 11.3 % (13.4-35.0) L 03/31/18 07:20 [place] % (Auto) 10.8 % (0.0-7.3) H 03/31/18 07:20 Eos % (Auto) 1.3 % (0.0-4.3) 03/31/18 07:20 Baso % (Auto) 0.6 % (0.0-1.8) 03/31/18 07:20 Lymph # 0.7 K/mm3 (1.2-5.4) L 03/31/18 07:20 [place] # 0.7 K/mm3 (0.0-0.8) 03/31/18 07:20 Eos # 0.1 K/mm3 (0.0-0.4) 03/31/18 07:20 Baso # 0.0 K/mm3 (0.0-0.1) 03/31/18 07:20 Add Manual Diff Complete 04/01/18 08:30 Total Counted 100 04/01/18 08:30 Seg Neutrophils % 76.0 % (40.0-70.0) H 03/31/18 07:20 Seg Neuts % (Manual) 84.0 % (40.0-70.0) H 04/01/18 08:30 Band Neutrophils % 1.0 % 04/01/18 08:30 Lymphocytes % (Manual) 5.0 % (13.4-35.0) L 04/01/18 08:30 Reactive Lymphs % (Man) 0 % 04/01/18 08:30 Monocytes % (Manual) 6.0 % (0.0-7.3) 04/01/18 08:30 Eosinophils % (Manual) 4.0 % (0.0-4.3) 04/01/18 08:30 Basophils % (Manual) 0 % (0.0-1.8) 04/01/18 08:30 Metamyelocytes % 0 % 04/01/18 08:30 Myelocytes % 0 % 04/01/18 08:30 Promyelocytes % 0 % 04/01/18 08:30 Blast Cells % 0 % 04/01/18 08:30 Nucleated RBC % Not Reportable 04/01/18 08:30 Seg Neutrophils # 4.9 K/mm3 (1.8-7.7) 03/31/18 07:20 Seg Neutrophils # Man 4.8 K/mm3 (1.8-7.7) 04/01/18 08:30 Band Neutrophils # 0.1 K/mm3 04/01/18 08:30 Lymphocytes # (Manual) 0.3 K/mm3 (1.2-5.4) L 04/01/18 08:30 Abs React Lymphs (Man) 0.0 K/mm3 04/01/18 08:30 Monocytes # (Manual) 0.3 K/mm3 (0.0-0.8) 04/01/18 08:30 Eosinophils # (Manual) 0.2 K/mm3 (0.0-0.4) 04/01/18 08:30 Basophils # (Manual) 0.0 K/mm3 (0.0-0.1) 04/01/18 08:30 Metamyelocytes # 0.0 K/mm3 04/01/18 08:30 Myelocytes # 0.0 K/mm3 04/01/18 08:30 Promyelocytes # 0.0 K/mm3 04/01/18 08:30 Blast Cells # 0.0 K/mm3 04/01/18 08:30 WBC Morphology Not Reportable 04/01/18 08:30 Hypersegmented Neuts Not Reportable 04/01/18 08:30 Hyposegmented Neuts Not Reportable 04/01/18 08:30 Hypogranular Neuts Not Reportable 04/01/18 08:30 Smudge Cells Not Reportable 04/01/18 08:30 Toxic Granulation Not Reportable 04/01/18 08:30 Toxic Vacuolation Not Reportable 04/01/18 08:30 Dohle Bodies Not Reportable 04/01/18 08:30 Pelger-Huet Anomaly Not Reportable 04/01/18 08:30 Ramone Rods Not Reportable 04/01/18 08:30 Platelet Estimate Consistent w auto 04/01/18 08:30 Clumped Platelets Not Reportable 04/01/18 08:30 Plt Clumps, EDTA Not Reportable 04/01/18 08:30 Large Platelets Not Reportable 04/01/18 08:30 Giant Platelets Not Reportable 04/01/18 08:30 Platelet Satelliting Not Reportable 04/01/18 08:30 Plt Morphology Comment Not Reportable 04/01/18 08:30 RBC Morphology Not Reportable 04/01/18 08:30 Dimorphic RBCs Not Reportable 04/01/18 08:30 Polychromasia Not Reportable 04/01/18 08:30 Hypochromasia Not Reportable 04/01/18 08:30 Poikilocytosis Few 04/01/18 08:30 Anisocytosis Not Reportable 04/01/18 08:30 Microcytosis Not Reportable 04/01/18 08:30 Macrocytosis Not Reportable 04/01/18 08:30 Spherocytes Not Reportable 04/01/18 08:30 Pappenheimer Bodies Not Reportable 04/01/18 08:30 Sickle Cells Not Reportable 04/01/18 08:30 Target Cells Not Reportable 04/01/18 08:30 Tear Drop Cells Not Reportable 04/01/18 08:30 Ovalocytes Few 04/01/18 08:30 Helmet Cells Not Reportable 04/01/18 08:30 [place] Bodies Not Reportable 04/01/18 08:30 [place] Rings Not Reportable 04/01/18 08:30 [place] Cells Not Reportable 04/01/18 08:30 Bite Cells Not Reportable 04/01/18 08:30 Crenated Cell Not Reportable 04/01/18 08:30 Elliptocytes Few 04/01/18 08:30 Acanthocytes (Spur) Not Reportable 04/01/18 08:30 Rouleaux Not Reportable 04/01/18 08:30 Hemoglobin C Crystals Not Reportable 04/01/18 08:30 Schistocytes Not Reportable 04/01/18 08:30 Malaria parasites Not Reportable 04/01/18 08:30 [place] Bodies Not Reportable 04/01/18 08:30 Hem Pathologist Commnt No 04/01/18 08:30 Sodium 141 mmol/L (137-145) 04/01/18 08:30 Potassium 4.0 mmol/L (3.6-5.0) 04/01/18 08:30 Chloride 100.5 mmol/L (98-107) 04/01/18 08:30 Carbon Dioxide 25 mmol/L (22-30) 04/01/18 08:30 Anion Gap 20 mmol/L 04/01/18 08:30 BUN 25 mg/dL (7-17) H 04/01/18 08:30 Creatinine 6.4 mg/dL (0.7-1.2) H 04/01/18 08:30 Estimated GFR 9 ml/min 04/01/18 08:30 BUN/Creatinine Ratio 4 % 04/01/18 08:30 Glucose 109 mg/dL (65-100) H 04/01/18 08:30 POC Glucose 86 (70-105) 04/01/18 14:08 Lactic Acid 1.60 mmol/L (0.7-2.0) 04/01/18 08:30 Calcium 8.4 mg/dL (8.4-10.2) 04/01/18 08:30 Total Creatine Kinase 7715 units/L (30-135) H 03/31/18 07:20
[2018-04-01] MEDS ORDERED: VANCOMYCIN PHARMACY TO DOSE IV SCH (15:00)
[2018-04-01] MEDS: ZOSYN/NS 2.25 GM/50ML 2.25 GM/50 ML BAG IV SCH ×2 (15:42→23:48)
[2018-04-01] MEDS ORDERED: ZOSYN/NS 4.5GM/100ML 4.5 GM/100 ML VIAL IV SCH (22:00)
[2018-04-01] MEDS: ZESTRIL PO SCH (22:00)
[2018-04-01] MEDS: NEURONTIN PO SCH (23:48)
[2018-04-02] MEDS: PERCOCET 5/325 PO PRN (03:03)
[2018-04-02 06:09] LABS: Basophils % (Auto) 0.6 % (0.0-1.8); Eosinophils # (Auto) 0.1 K/mm3 (0.0-0.4); Hematocrit 31.5 % (30.3-42.9); Hemoglobin 10.2 gm/dl (10.1-14.3); Lymphocytes # (Auto) 0.4 K/mm3 (1.2-5.4); Lymphocytes % (Auto) 5.3 % (13.4-35.0); Mean Corpuscular HGB Conc 32 % (30-34); Mean Corpuscular Volume 99 fl (79-97); Monocytes # (Auto) 0.4 K/mm3 (0.0-0.8); Monocytes % (Auto) 5.3 % (0.0-7.3); Platelet Count 124 K/mm3 (140-440); Red Blood Count 3.19 M/mm3 (3.65-5.03)
[2018-04-02] MEDS: ZOSYN/NS 2.25 GM/50ML 2.25 GM/50 ML BAG IV SCH ×3 (06:38→22:49)
[2018-04-02] MEDS: APRESOLINE PO SCH ×3 (06:39→22:00)
[2018-04-02 06:52] LABS: Calcium 7.9 mg/dL (8.4-10.2)
[2018-04-02] MEDS: FEOSOL PO SCH ×3 (08:43→22:49)
[2018-04-02] MEDS: RENVELA PO SCH ×3 (08:43→18:58)
[2018-04-02] MEDS: LOPRESSOR PO SCH (11:32)
[2018-04-02] MEDS: INDERAL PO SCH ×2 (11:32→22:00)
[2018-04-02] MEDS: Renal Caps PO SCH (11:33)
[2018-04-02] MEDS: LOVENOX SUB-Q SCH (11:34)
[2018-04-02] MEDS: TYLENOL PO PRN ×2 (12:51→22:49)
[2018-04-02] MEDS: SODIUM CHLORIDE FLUSH SYRINGE 10 ML IV SCH ×2 (12:53→22:00)
--- NOTE | 2018-04-02 16:52 | Progress Note ---
Assessment and Plan Assessment and plan: Altered mental status, metabolic encephalopathy SIRS. Pt with fever this morning. Blood cultures negative so far, lactic acid level was normal. Empiric Vanc and Zosyn started. ID was consulted. Right hip pain; x-rays negative. cause unknown. PT eval. ESRD; Continue Monday, and Monday hemodialysis schedule per nephrology. Nephrology consulted Nonischemic cardiomyopathy. Echo done 03/2017 showed EF 35%, atrial septal aneurysm present, patent PFO, LA and RA severely dilated, mild MR, mod TR, mild AR, restrictive diastolic filling, RV mod dilated, mod pulm HTN. Chronic systolic heart failure. Compensated. Continue hemodialysis for negative fluid balance. AICD. Pulmonary hypertension. Continue supportive care. PFO/atrial septal aneurysm. Hypertension. Continue antihypertensive medications. Peripheral neuropathy. Continue gabapentin. Left BKA. DVT prophylaxis. Lovenox. History Interval history: Patient was seen and evaluated this morning, patient was alert and oriented. Hospitalist Physical - Physical exam Narrative exam: Not in cardiopulmonary distress. The patient appeared well nourished and normally developed. Vital signs as documented. Head exam is unremarkable. No scleral icterus . Neck is without jugular venous distension, thyromegaly, or carotid bruits. Lungs are clear to auscultation. Cardiac exam reveals regular rate and Rhythm. First and second heart sounds normal. No murmurs, rubs or gallops. Abdominal exam reveals normal bowel sounds, no masses, no organomegaly and no aortic enlargement. Extremities left BKA. SINGLE RESOURCE BOSS: alert and oriented but sleepy. - Constitutional Vitals: Temp Pulse Resp BP Pulse Ox 98.0 F 90 16 107/51 94 04/02/18 05:32 04/02/18 06:39 04/02/18 05:32 04/02/18 11:32 04/02/18 05:32 General appearance: Present: no acute distress, well-nourished Results - Labs CBC & Chem 7: 04/02/18 04:59 04/03/18 15:22 Labs: Laboratory Last Values WBC 7.2 K/mm3 (4.5-11.0) 04/02/18 04:59 RBC 3.19 M/mm3 (3.65-5.03) L 04/02/18 04:59 Hgb 10.2 gm/dl (10.1-14.3) 04/02/18 04:59 Hct 31.5 % (30.3-42.9) 04/02/18 04:59 MCV 99 fl (79-97) H 04/02/18 04:59 MCH 32 pg (28-32) 04/02/18 04:59 MCHC 32 % (30-34) 04/02/18 04:59 RDW 18.0 % (13.2-15.2) H 04/02/18 04:59 Plt Count 124 K/mm3 (140-440) L 04/02/18 04:59 Lymph % (Auto) 5.3 % (13.4-35.0) L 04/02/18 04:59 [place] % (Auto) 5.3 % (0.0-7.3) 04/02/18 04:59 Eos % (Auto) 2.0 % (0.0-4.3) 04/02/18 04:59 Baso % (Auto) 0.6 % (0.0-1.8) 04/02/18 04:59 Lymph # 0.4 K/mm3 (1.2-5.4) L 04/02/18 04:59 [place] # 0.4 K/mm3 (0.0-0.8) 04/02/18 04:59 Eos # 0.1 K/mm3 (0.0-0.4) 04/02/18 04:59 Baso # 0.0 K/mm3 (0.0-0.1) 04/02/18 04:59 Add Manual Diff Complete 04/01/18 08:30 Total Counted 100 04/01/18 08:30 Seg Neutrophils % 86.8 % (40.0-70.0) H 04/02/18 04:59 Seg Neuts % (Manual) 84.0 % (40.0-70.0) H 04/01/18 08:30 Band Neutrophils % 1.0 % 04/01/18 08:30 Lymphocytes % (Manual) 5.0 % (13.4-35.0) L 04/01/18 08:30 Reactive Lymphs % (Man) 0 % 04/01/18 08:30 Monocytes % (Manual) 6.0 % (0.0-7.3) 04/01/18 08:30 Eosinophils % (Manual) 4.0 % (0.0-4.3) 04/01/18 08:30 Basophils % (Manual) 0 % (0.0-1.8) 04/01/18 08:30 Metamyelocytes % 0 % 04/01/18 08:30 Myelocytes % 0 % 04/01/18 08:30 Promyelocytes % 0 % 04/01/18 08:30 Blast Cells % 0 % 04/01/18 08:30 Nucleated RBC % Not Reportable 04/01/18 08:30 Seg Neutrophils # 6.2 K/mm3 (1.8-7.7) 04/02/18 04:59 Seg Neutrophils # Man 4.8 K/mm3 (1.8-7.7) 04/01/18 08:30 Band Neutrophils # 0.1 K/mm3 04/01/18 08:30 Lymphocytes # (Manual) 0.3 K/mm3 (1.2-5.4) L 04/01/18 08:30 Abs React Lymphs (Man) 0.0 K/mm3 04/01/18 08:30 Monocytes # (Manual) 0.3 K/mm3 (0.0-0.8) 04/01/18 08:30 Eosinophils # (Manual) 0.2 K/mm3 (0.0-0.4) 04/01/18 08:30 Basophils # (Manual) 0.0 K/mm3 (0.0-0.1) 04/01/18 08:30 Metamyelocytes # 0.0 K/mm3 04/01/18 08:30 Myelocytes # 0.0 K/mm3 04/01/18 08:30 Promyelocytes # 0.0 K/mm3 04/01/18 08:30 Blast Cells # 0.0 K/mm3 04/01/18 08:30 WBC Morphology Not Reportable 04/01/18 08:30 Hypersegmented Neuts Not Reportable 04/01/18 08:30 Hyposegmented Neuts Not Reportable 04/01/18 08:30 Hypogranular Neuts Not Reportable 04/01/18 08:30 Smudge Cells Not Reportable 04/01/18 08:30 Toxic Granulation Not Reportable 04/01/18 08:30 Toxic Vacuolation Not Reportable 04/01/18 08:30 Dohle Bodies Not Reportable 04/01/18 08:30 Pelger-Huet Anomaly Not Reportable 04/01/18 08:30 Ramone Rods Not Reportable 04/01/18 08:30 Platelet Estimate Consistent w auto 04/01/18 08:30 Clumped Platelets Not Reportable 04/01/18 08:30 Plt Clumps, EDTA Not Reportable 04/01/18 08:30 Large Platelets Not Reportable 04/01/18 08:30 Giant Platelets Not Reportable 04/01/18 08:30 Platelet Satelliting Not Reportable 04/01/18 08:30 Plt Morphology Comment Not Reportable 04/01/18 08:30 RBC Morphology Not Reportable 04/01/18 08:30 Dimorphic RBCs Not Reportable 04/01/18 08:30 Polychromasia Not Reportable 04/01/18 08:30 Hypochromasia Not Reportable 04/01/18 08:30 Poikilocytosis Few 04/01/18 08:30 Anisocytosis Not Reportable 04/01/18 08:30 Microcytosis Not Reportable 04/01/18 08:30 Macrocytosis Not Reportable 04/01/18 08:30 Spherocytes Not Reportable 04/01/18 08:30 Pappenheimer Bodies Not Reportable 04/01/18 08:30 Sickle Cells Not Reportable 04/01/18 08:30 Target Cells Not Reportable 04/01/18 08:30 Tear Drop Cells Not Reportable 04/01/18 08:30 Ovalocytes Few 04/01/18 08:30 Helmet Cells Not Reportable 04/01/18 08:30 [place] Bodies Not Reportable 04/01/18 08:30 [place] Rings Not Reportable 04/01/18 08:30 [place] Cells Not Reportable 04/01/18 08:30 Bite Cells Not Reportable 04/01/18 08:30 Crenated Cell Not Reportable 04/01/18 08:30 Elliptocytes Few 04/01/18 08:30 Acanthocytes (Spur) Not Reportable 04/01/18 08:30 Rouleaux Not Reportable 04/01/18 08:30 Hemoglobin C Crystals Not Reportable 04/01/18 08:30 Schistocytes Not Reportable 04/01/18 08:30 Malaria parasites Not Reportable 04/01/18 08:30 [place] Bodies Not Reportable 04/01/18 08:30 Hem Pathologist Commnt No 04/01/18 08:30 Sodium 141 mmol/L (137-145) 04/02/18 04:59 Potassium 4.1 mmol/L (3.6-5.0) 04/02/18 04:59 Chloride 102.7 mmol/L (98-107) 04/02/18 04:59 Carbon Dioxide 24 mmol/L (22-30) 04/02/18 04:59 Anion Gap 18 mmol/L 04/02/18 04:59 BUN 31 mg/dL (7-17) H 04/02/18 04:59 Creatinine 7.6 mg/dL (0.7-1.2) H 04/02/18 04:59 Estimated GFR 7 ml/min 04/02/18 04:59 BUN/Creatinine Ratio 4 % 04/02/18 04:59 Glucose 93 mg/dL (65-100) 04/02/18 04:59 POC Glucose 86 (70-105) 04/01/18 14:08 Lactic Acid 1.60 mmol/L (0.7-2.0) 04/01/18 08:30 Calcium 7.9 mg/dL (8.4-10.2) L 04/02/18 04:59 Total Creatine Kinase 7715 units/L (30-135) H 03/31/18 07:20 Blood Type O POSITIVE 04/01/18 14:52 Antibody Screen Negative 04/01/18 14:52
[2018-04-02] MEDS: NEURONTIN PO SCH (22:00)
[2018-04-02] MEDS: ZESTRIL PO SCH (22:00)
[2018-04-02] MEDS ORDERED: NACL 0.9% 500 ML 500 ML IV ONE (22:38)
[2018-04-02] MEDS ORDERED: CLEOCIN 900 MG/50 mL 900 MG/50 ML BAG IV ONE (23:00)
--- NOTE | 2018-04-03 00:15 | XRay Report ---
FINAL REPORT EXAM: XR CHEST 1V AP HISTORY: pneumonia TECHNIQUE: AP portable view of the chest. PRIORS: 09/16/2017 FINDINGS: There is a left-sided AICD that appears adequately positioned. Cardiac silhouette is enlarged the aleks gs are hypo aerated. The left lung base is largely obscured by the enlarged cardiac silhouette. The v isualized lung goff are clear. The bones and soft tissues are unremarkable. IMPRESSION: Stable cardiomegaly
[2018-04-03] MEDS ORDERED: NACL 0.9% 500 ML 500 ML IV ONE ×2 (01:40→05:00)
[2018-04-03] MEDS: RENVELA PO SCH ×2 (08:36→17:45)
[2018-04-03] MEDS ORDERED: NACL 0.9 (PRIMING MACHINE ONLY DIALYSIS) MC ONE (10:14)
[2018-04-03] MEDS: Renal Caps PO SCH (10:33)
[2018-04-03] MEDS: LOVENOX SUB-Q SCH (10:33)
[2018-04-03] MEDS: SODIUM CHLORIDE FLUSH SYRINGE 10 ML IV SCH ×2 (10:33→21:52)
[2018-04-03] MEDS: INDERAL PO SCH ×2 (10:33→21:51)
[2018-04-03] MEDS: LOPRESSOR PO SCH (10:33)
[2018-04-03] MEDS: FEOSOL PO SCH ×3 (10:34→21:50)
--- NOTE | 2018-04-03 14:45 | Consultation ---
History of Present Illness - Reason for Consult Consult date: 04/03/18 fever/AMS Requesting physician: RASHI WILLOUGHBY - History of Present Illness 42 y/o female with history of hypertension, left BKA 2006 due to foot infection and ESRD on HD; admitted on 03/31/2018 due to right hip pain. Patient states that 2 days ago she had a fall. She was tying to put her prosthesis and her right leg gave out and she fell. Patient fell to the right hip has been having aching pain in the right hip and right thigh since. Patient states that the pain is so bad she is having difficulty moving or walking. Patient had another fall the day before admission and was on the ground lying on her right side for approximately 3+ hours. Patient denies any slurred speech difficulty coming up with words or weakness or pain to the left side. Patient is stating that her right side feels limp however with further questioning she states that it feels like because of pain and not because it is true isolated weakness. Patient states the pain is 8 out of 10 in severity as aching and throbbing. Dr. Vázquez reports patient missed HD on . In the ED, temp 98.6, HR 88, R 12, BP 147/82, wbc 6.4. Hg 11.3. Plat 134. Creat 7.6. Lactate 1.9. Blood culture 04/01/2018 no growth today. MRSA screening negative. XR femur neg . XR hip neg. CXR cardiomegaly. Review of Systems: limited due tpo AMS Past History Past Medical History: ESRD, heart failure, hypertension (neuropathy, pulm htn,) Past Surgical History: Other (AICD, bka) Social history: no significant social history Family history: no significant family history Medications and Allergies Allergies Allergy/AdvReac Type Severity Reaction Status Date / Time iodine Allergy Swelling Verified 05/12/17 12:49 levofloxacin [From Levaquin] Allergy Swelling Verified 05/12/17 12:49 linezolid [From Zyvox] Allergy Hives Verified 05/12/17 12:49 morphine Allergy Swelling Verified 05/12/17 12:49 Sulfa (Sulfonamide Allergy Swelling Verified 05/12/17 12:49 Antibiotics) vancomycin Allergy Swelling Verified 05/12/17 12:49 Home Medications Medication Instructions Recorded Confirmed Last Taken Type Gabapentin 400 mg PO QHS 09/12/16 03/31/18 09/11/16 History Lisinopril 40 mg PO QHS 09/12/16 03/31/18 09/11/16 History Renvela 800 mg PO TID 09/12/16 03/31/18 09/10/16 History Dulcolax tab 4 mg PO DAILY #30 10/20/16 03/31/18 Unknown Rx Ferrous Sulfate [Feosol 325 MG tab] 325 mg PO TID #30 tablet 10/20/16 03/31/18 Unknown Rx ALPRAZolam [Xanax] 1 mg PO QDAY PRN 08/12/17 03/31/18 Unknown History B Complex 11/Folic/C/Biot/Zinc 1 each PO QDAY 08/12/17 03/31/18 Unknown History [Dialyvite with Zinc Tablet] HYDROcodone/APAP 10-325 [[place] 1 each PO Q8HR PRN 08/12/17 03/31/18 Unknown History 10-325 mg TAB] Hydralazine HCl 50 mg PO Q8H 08/12/17 03/31/18 Unknown History Metoprolol Tartrate 50 mg PO QAM 08/12/17 03/31/18 Unknown History Propranolol HCl 80 mg PO BID 08/12/17 03/31/18 Unknown History Active Meds: Active Medications Acetaminophen (Tylenol) 650 mg PO Q4H PRN PRN Reason: Pain MILD(1-3)/Fever >100.5/JENKINS Last Admin: 04/02/18 22:49 Dose: 650 mg Documented by: Alprazolam (Xanax) 1 mg PO QDAY PRN PRN Reason: Anxiety Diphenhydramine HCl (Benadryl) 25 mg PO Q6H PRN PRN Reason: Itching Last Admin: 04/01/18 12:39 Dose: 25 mg Documented by: Enoxaparin Sodium (Lovenox) 30 mg SUB-Q QDAY [facility] Last Admin: 04/03/18 10:33 Dose: Not Given Documented by: Ferrous Sulfate (Feosol) 325 mg PO TID [facility] Last Admin: 04/03/18 10:34 Dose: Not Given Documented by: Gabapentin (Neurontin) 400 mg PO QHS [facility] Last Admin: 04/02/18 22:00 Dose: Not Given Documented by: Heparin Sodium (Porcine) (Heparin 10,000 Units/10 Ml) 1,000 unit IV SONIDO PRN PRN Reason: hemodialysis Last Admin: 04/03/18 10:14 Dose: 1,000 unit Documented by: Hydralazine HCl (Apresoline) 50 mg PO Q8HR [facility] Last Admin: 04/02/18 22:00 Dose: Not Given Documented by: Sodium Chloride (Nacl 0.9%) 100 mls @ 999 mls/hr IV SONIDO PRN PRN Reason: Hypotension Piperacillin Sod/Tazobactam Sod (Zosyn/Ns 2.25 Gm/50ml) 2.25 gm in 50 mls @ 100 mls/hr IV Q8HR [facility] Last Admin: 04/02/18 22:49 Dose: 100 mls/hr Documented by: Lisinopril (Zestril) 40 mg PO QHS [facility] Last Admin: 04/02/18 22:00 Dose: Not Given Documented by: Metoprolol Tartrate (Lopressor) 50 mg PO QAM [facility] Last Admin: 04/03/18 10:33 Dose: Not Given Documented by: Multivit/Ca Carb/B Cmplx/FA/Prenat (Renal Caps) 1 cap PO QDAY [facility] Last Admin: 04/03/18 10:33 Dose: Not Given Documented by: Ondansetron HCl (Zofran) 4 mg IV Q8H PRN PRN Reason: Nausea And Vomiting Oxycodone/Acetaminophen (Percocet 5/325) 1 tab PO Q6H PRN PRN Reason: Pain, Moderate (4-6) Last Admin: 04/02/18 03:03 Dose: 1 tab Documented by: Propranolol HCl (Inderal) 80 mg PO BID [facility] Last Admin: 04/03/18 10:33 Dose: Not Given Documented by: Sevelamer Carbonate (Renvela) 800 mg PO AC [facility] Last Admin: 04/03/18 08:36 Dose: 800 mg Documented by: Sodium Chloride (Sodium Chloride Flush Syringe 10 Ml) 10 ml IV BID [facility] Last Admin: 04/03/18 10:33 Dose: Not Given Documented by: Sodium Chloride (Sodium Chloride Flush Syringe 10 Ml) 10 ml IV PRN PRN PRN Reason: LINE FLUSH Physical Examination - Physical Exam Narrative exam: General appearance: Alert in mild resp distress, somnolent Eyes: anicteric sclerae, moist conjunctivae; no lid-lag; PERRLA HENT: Atraumatic; oropharynx clear Neck: Trachea midline; supple, no thyromegaly or lymphadenopathy Lungs: eileen scattered crackles CV: RRR, + murmurs Abdomen: Soft, TTP Extremities: left BKA stump clear, eileen thigh edema Skin: Normal temperature, turgor and texture; no rash, ulcers or subcutaneous nodules Psych: Appropriate affect, alert and oriented to person, place and time. Neuro: alert and oriented x 3. Moving all extermities - Constitutional Vitals: Vital Signs Temp Pulse Resp BP Pulse Ox 97.6 F 98 H 16 139/75 98 04/03/18 08:55 04/03/18 12:30 04/03/18 08:55 04/03/18 12:30 04/03/18 05:01 Temperature -Last 24 Hours Temperature 97.6 F Temperature 97.4 F Temperature 99.6 F Temperature 101.6 F Temperature 100.0 F Results - Labs CBC & Chem 7: 04/02/18 04:59 04/03/18 15:22 Labs: Abnormal lab results 04/02/18 Range/Units 22:28 POC Glucose 107 H (70-105) Assessment and Plan Cultures: Blood culture 04/01/2018 no growth today. MRSA screening negative Assessment: 42 y/o female with history of hypertension, left BKA 2007 due to foot infection and ESRD on HD; admitted on 03/31/2018 due to right hip pain then developed fever and AMS: 1) Sepsis: NOT Present on admission, manifested by fever on 04/01/2018, ta chycardia. Etiology unclear. DDx: influenza, meningitis, pneumonia, endocarditis (pt has a murmur and AICD in place). Blood culture 04/01/2018 no growth today. CXR no consolidations. MRSA screening negative. 2) Recent fall: Patient fell to the right hip has been having aching pain in the right hip and right thigh since. Patient states that the pain is so bad she is having difficulty moving or walking. Patient had another fall the day before admission and was on the ground lying on her right side for approximately 3+ hours. XR femur neg. XR hip neg. 3) Allergy to vancomcyin, linezolid and levaquin 4) AMS: from sepsis +/- meningitis Recommendations: - obtain lumbar puncture send CSF for Gram, cultures, cell count, diff, VDRL, Cryptococcus Ag, HSV PCR - follow-up blood cultures - Influenza rapid antigen and PCR NIKI - start tamiflu renally adjusted - add ceftriaxone 2 gm IV q12h - add acyclovir 240 mg IV qday renally adjusted - unable to add coverage for Ceftriaxone-resistant Strep pneumoniae because patient is allergic to vancomycin and linezolid - TTE Will follow. Malu Camacho MD Infectious Diseases Rn Transplant [facility] M [phone] O [phone]
--- NOTE | 2018-04-03 15:25 | Cat Scan Report ---
CT HEAD WITHOUT CONTRAST: HISTORY: Altered mental status. TECHNIQUE: Sequential 2.5mm CT images. COMPARISON: 03/31/18. FINDINGS: Cerebral Parenchyma: Within normal limits. Cerebellum: Within normal limits. Brainstem: Within normal limits. Ventricles: Normal. Sella: Normal. Extra-axial spaces: Normal. Basal Cisterns: Normal. Intracranial Hemorrhage: None. Midline Shift: None. Calvarium: Normal. Sinuses: Normal. Mastoid Air Cells: Normal. Visualized Orbits: Normal. IMPRESSION: Cranial CT scan within normal limits.
[2018-04-03 16:10] LABS: Albumin 3.2 g/dL (3.9-5); Calcium 8.6 mg/dL (8.4-10.2)
--- NOTE | 2018-04-03 16:58 | Progress Note ---
Assessment and Plan Assessment and plan: Altered mental status, metabolic encephalopathy - We will do stat CT, check CMP and ammonia level - Patient will be transferred to MICU SIRS. Pt with fever this morning. Blood cultures negative so far, lactic acid level was normal. Empiric Vanc and Zosyn started. ID was consulted. Right hip pain; x-rays negative. cause unknown. PT eval. ESRD; Continue Monday, and Monday hemodialysis schedule per nephrology. Nephrology consulted Nonischemic cardiomyopathy. Echo done 03/2017 showed EF 35%, atrial septal aneurysm present, patent PFO, LA and RA severely dilated, mild MR, mod TR, mild AR, restrictive diastolic filling, RV mod dilated, mod pulm HTN. Chronic systolic heart failure. Compensated. Continue hemodialysis for negative fluid balance. AICD. Pulmonary hypertension. Continue supportive care. PFO/atrial septal aneurysm. Hypertension. Continue antihypertensive medications. Peripheral neuropathy. Continue gabapentin. Left BKA. DVT prophylaxis. Lovenox. Disposition; MICU Prognosis; guarded History Interval history: Patient was seen and evaluated this morning, patient was non communicative. Spontaneous eye opening. Discussed her fianc on the phone. Hospitalist Physical - Physical exam Narrative exam: Not in cardiopulmonary distress. The patient appeared well nourished and normally developed. Vital signs as documented. Head exam is unremarkable. No scleral icterus . Neck is without jugular venous distension, thyromegaly, or carotid bruits. Lungs are clear to auscultation. Cardiac exam reveals regular rate and Rhythm. First and second heart sounds normal. No murmurs, rubs or gallops. Abdominal exam reveals normal bowel sounds, no masses, no organomegaly and no aortic enlargement. Extremities left BKA. STITCHER UTILITY: No nicotine, spontaneous eye opening. - Constitutional Vitals: Temp Pulse Resp BP Pulse Ox 98.2 F 103 H 20 115/80 98 04/03/18 12:45 04/03/18 12:45 04/03/18 12:45 04/03/18 12:45 04/03/18 05:01 General appearance: Present: no acute distress, well-nourished Results - Labs CBC & Chem 7: 04/02/18 04:59 04/03/18 15:22 Labs: Laboratory Last Values WBC 7.2 K/mm3 (4.5-11.0) 04/02/18 04:59 RBC 3.19 M/mm3 (3.65-5.03) L 04/02/18 04:59 Hgb 10.2 gm/dl (10.1-14.3) 04/02/18 04:59 Hct 31.5 % (30.3-42.9) 04/02/18 04:59 MCV 99 fl (79-97) H 04/02/18 04:59 MCH 32 pg (28-32) 04/02/18 04:59 MCHC 32 % (30-34) 04/02/18 04:59 RDW 18.0 % (13.2-15.2) H 04/02/18 04:59 Plt Count 124 K/mm3 (140-440) L 04/02/18 04:59 Lymph % (Auto) 5.3 % (13.4-35.0) L 04/02/18 04:59 Cole % (Auto) 5.3 % (0.0-7.3) 04/02/18 04:59 Eos % (Auto) 2.0 % (0.0-4.3) 04/02/18 04:59 Baso % (Auto) 0.6 % (0.0-1.8) 04/02/18 04:59 Lymph # 0.4 K/mm3 (1.2-5.4) L 04/02/18 04:59 Cole # 0.4 K/mm3 (0.0-0.8) 04/02/18 04:59 Eos # 0.1 K/mm3 (0.0-0.4) 04/02/18 04:59 Baso # 0.0 K/mm3 (0.0-0.1) 04/02/18 04:59 Add Manual Diff Complete 04/01/18 08:30 Total Counted 100 04/01/18 08:30 Seg Neutrophils % 86.8 % (40.0-70.0) H 04/02/18 04:59 Seg Neuts % (Manual) 84.0 % (40.0-70.0) H 04/01/18 08:30 Band Neutrophils % 1.0 % 04/01/18 08:30 Lymphocytes % (Manual) 5.0 % (13.4-35.0) L 04/01/18 08:30 Reactive Lymphs % (Man) 0 % 04/01/18 08:30 Monocytes % (Manual) 6.0 % (0.0-7.3) 04/01/18 08:30 Eosinophils % (Manual) 4.0 % (0.0-4.3) 04/01/18 08:30 Basophils % (Manual) 0 % (0.0-1.8) 04/01/18 08:30 Metamyelocytes % 0 % 04/01/18 08:30 Myelocytes % 0 % 04/01/18 08:30 Promyelocytes % 0 % 04/01/18 08:30 Blast Cells % 0 % 04/01/18 08:30 Nucleated RBC % Not Reportable 04/01/18 08:30 Seg Neutrophils # 6.2 K/mm3 (1.8-7.7) 04/02/18 04:59 Seg Neutrophils # Man 4.8 K/mm3 (1.8-7.7) 04/01/18 08:30 Band Neutrophils # 0.1 K/mm3 04/01/18 08:30 Lymphocytes # (Manual) 0.3 K/mm3 (1.2-5.4) L 04/01/18 08:30 Abs React Lymphs (Man) 0.0 K/mm3 04/01/18 08:30 Monocytes # (Manual) 0.3 K/mm3 (0.0-0.8) 04/01/18 08:30 Eosinophils # (Manual) 0.2 K/mm3 (0.0-0.4) 04/01/18 08:30 Basophils # (Manual) 0.0 K/mm3 (0.0-0.1) 04/01/18 08:30 Metamyelocytes # 0.0 K/mm3 04/01/18 08:30 Myelocytes # 0.0 K/mm3 04/01/18 08:30 Promyelocytes # 0.0 K/mm3 04/01/18 08:30 Blast Cells # 0.0 K/mm3 04/01/18 08:30 WBC Morphology Not Reportable 04/01/18 08:30 Hypersegmented Neuts Not Reportable 04/01/18 08:30 Hyposegmented Neuts Not Reportable 04/01/18 08:30 Hypogranular Neuts Not Reportable 04/01/18 08:30 Smudge Cells Not Reportable 04/01/18 08:30 Toxic Granulation Not Reportable 04/01/18 08:30 Toxic Vacuolation Not Reportable 04/01/18 08:30 Dohle Bodies Not Reportable 04/01/18 08:30 Pelger-Huet Anomaly Not Reportable 04/01/18 08:30 Ramone Rods Not Reportable 04/01/18 08:30 Platelet Estimate Consistent w auto 04/01/18 08:30 Clumped Platelets Not Reportable 04/01/18 08:30 Plt Clumps, EDTA Not Reportable 04/01/18 08:30 Large Platelets Not Reportable 04/01/18 08:30 Giant Platelets Not Reportable 04/01/18 08:30 Platelet Satelliting Not Reportable 04/01/18 08:30 Plt Morphology Comment Not Reportable 04/01/18 08:30 RBC Morphology Not Reportable 04/01/18 08:30 Dimorphic RBCs Not Reportable 04/01/18 08:30 Polychromasia Not Reportable 04/01/18 08:30 Hypochromasia Not Reportable 04/01/18 08:30 Poikilocytosis Few 04/01/18 08:30 Anisocytosis Not Reportable 04/01/18 08:30 Microcytosis Not Reportable 04/01/18 08:30 Macrocytosis Not Reportable 04/01/18 08:30 Spherocytes Not Reportable 04/01/18 08:30 Pappenheimer Bodies Not Reportable 04/01/18 08:30 Sickle Cells Not Reportable 04/01/18 08:30 Target Cells Not Reportable 04/01/18 08:30 Tear Drop Cells Not Reportable 04/01/18 08:30 Ovalocytes Few 04/01/18 08:30 Helmet Cells Not Reportable 04/01/18 08:30 [place] Bodies Not Reportable 04/01/18 08:30 [place] Rings Not Reportable 04/01/18 08:30 Home Cells Not Reportable 04/01/18 08:30 Bite Cells Not Reportable 04/01/18 08:30 Crenated Cell Not Reportable 04/01/18 08:30 Elliptocytes Few 04/01/18 08:30 Acanthocytes (Spur) Not Reportable 04/01/18 08:30 Rouleaux Not Reportable 04/01/18 08:30 Hemoglobin C Crystals Not Reportable 04/01/18 08:30 Schistocytes Not Reportable 04/01/18 08:30 Malaria parasites Not Reportable 04/01/18 08:30 [place] Bodies Not Reportable 04/01/18 08:30 Hem Pathologist Commnt No 04/01/18 08:30 Sodium 137 mmol/L (137-145) 04/03/18 15:22 Potassium 3.8 mmol/L (3.6-5.0) 04/03/18 15:22 Chloride 95.0 mmol/L (98-107) L 04/03/18 15:22 Carbon Dioxide 26 mmol/L (22-30) 04/03/18 15:22 Anion Gap 20 mmol/L 04/03/18 15:22 BUN 21 mg/dL (7-17) H 04/03/18 15:22 Creatinine 5.1 mg/dL (0.7-1.2) H 04/03/18 15:22 Estimated GFR 11 ml/min 04/03/18 15:22 BUN/Creatinine Ratio 4 % 04/03/18 15:22 Glucose 96 mg/dL (65-100) 04/03/18 15:22 POC Glucose 107 (70-105) H 04/02/18 22:28 Lactic Acid 1.90 mmol/L (0.7-2.0) 04/03/18 00:06 Calcium 8.6 mg/dL (8.4-10.2) 04/03/18 15:22 Total Bilirubin 1.00 mg/dL (0.1-1.2) 04/03/18 15:22 AST 80 units/L (5-40) H 04/03/18 15:22 ALT 46 units/L (7-56) 04/03/18 15:22 Alkaline Phosphatase 123 units/L (35-129) 04/03/18 15:22 Ammonia 30.0 umol/L (25-60) 04/03/18 15:22 Total Creatine Kinase 7715 units/L (30-135) H 03/31/18 07:20 Total Protein 7.5 g/dL (6.3-8.2) 04/03/18 15:22 Albumin 3.2 g/dL (3.9-5) L 04/03/18 15:22 Albumin/Globulin Ratio 0.7 % 04/03/18 15:22 Blood Type O POSITIVE 04/01/18 14:52 Antibody Screen Negative 04/01/18 14:52
[2018-04-03] MEDS: APRESOLINE PO SCH ×2 (17:44→21:50)
[2018-04-03] MEDS ORDERED: TAMIFLU PO ONE (21:00)
[2018-04-03] MEDS ORDERED: TAMIFLU PO SCH (21:00)
[2018-04-03] MEDS: NEURONTIN PO SCH (21:48)
[2018-04-03] MEDS: TYLENOL PO PRN (21:48)
[2018-04-03] MEDS: ZESTRIL PO SCH (21:52)
[2018-04-03] MEDS ORDERED: ROCEPHIN/NS 2 GM/100 ML 2 GM/100 ML BAG IV SCH (22:00)
[2018-04-04 05:58] LABS: Hematocrit 30.4 % (30.3-42.9); Hemoglobin 9.9 gm/dl (10.1-14.3); Mean Corpuscular HGB Conc 33 % (30-34); Mean Corpuscular Volume 95 fl (79-97)
[2018-04-04 05:59] LABS: Platelet Count 68 K/mm3 (140-440)
[2018-04-04 06:19] LABS: Calcium 8.2 mg/dL (8.4-10.2)
[2018-04-04 06:38] LABS: Anisocytosis 1+; Band Neutrophils # (Manual) 0.7 K/mm3; Large Platelets Few; Ovalocytes 1+; Poikilocytosis 1+; Tear Drop Cells 1+; Total Cells Counted 100
[2018-04-04] MEDS: FEOSOL PO SCH ×2 (08:03→09:35)
[2018-04-04 09:56] LABS: INR 1.64 (0.87-1.13)
[2018-04-04 09:57] LABS: Partial Thromboplastin Time 33.6 Sec. (24.2-36.6)
[2018-04-04] MEDS: INDERAL PO SCH (10:03)
[2018-04-04] MEDS: LOPRESSOR PO SCH (10:04)
[2018-04-04] MEDS: LOVENOX SUB-Q SCH (10:04)
[2018-04-04] MEDS: SODIUM CHLORIDE FLUSH SYRINGE 10 ML IV SCH (10:07)
[2018-04-04] MEDS: Renal Caps PO SCH (10:08)
--- NOTE | 2018-04-04 10:12 | Progress Note ---
Assessment and Plan - Patient Problems (1) End stage renal disease on dialysis Current Visit: Yes Status: Chronic Plan to address problem: Continue on TTS inpatient HD schedule. No acute HD needs today. (2) Altered mental status Current Visit: Yes Status: Acute Plan to address problem: Unclear etiology. CT head negative. ID evaluation/work up noted. Pending LP today. Gabapentin dose should be decreased based on her ESRD. Will decrease to 100 mg QHS. (3) Right hip pain Current Visit: Yes Status: Acute Plan to address problem: Stable at this time. Avoid significant pain medications in this patient with lethargy/AMS. Agree with Tylenol PRN. (4) Hypertensive chronic kidney disease with stage 5 chronic kidney disease or end stage renal disease Current Visit: No Status: Acute Plan to address problem: Agree with holding antihypertensive at present time. Need to avoid hypotension as this can also likely contribute to her AMS and lethargy. (5) Type 2 diabetes mellitus with diabetic chronic kidney disease Current Visit: No Status: Acute Plan to address problem: DM management per ICU team (6) Anemia in chronic kidney disease, on chronic dialysis Current Visit: No Status: Chronic Plan to address problem: Epogen with HD Subjective Date of service: 04/04/18 Interval history: Was called about patient from the HD unit. She had been very lethargic when she had arrived and throughout her entire treatment. Per primary notes, it seems that she had been lethargic that am, which was an acute change since she had been admitted. She was transferred to [facility] post HD session. Had stat CT head don e which did not show any acute abnormalities. Pending LP today in the setting of her AMS and onset of fevers. She is afebrile this am. ID consult and recommendations noted. Blood cultures pending at this time. Objective - Vital Signs Vital signs: Vital Signs - 12hr 04/04/18 04/04/18 04/04/18 00:00 04:00 08:00 Temperature 102.0 F H 100.7 F H 98.9 F - General Appearance General appearance: well-nourished, appears stated age EENT: ATNC, PERRL Neck: no JVD, no thyromegaly Respiratory: Present: Clear to Ascultation Cardiology: regular, S1S2 Gastrointestinal: normal, normoactive bowel sounds Integumentary: no rash, warm and dry Neurologic: confused, disoriented, other (awake, alert, aware that she is in the hospital. remains lethargic ) Musculoskeletal: other (-edema ) Psychiatric: cooperative - Lab 04/04/18 05:14 04/04/18 05:14 Most recent lab results Calcium 8.2 mg/dL (8.4-10.2) L 04/04/18 05:14 - Imaging Other: report reviewed (CT head w/o contrast ) - Allied health notes Allied health notes reviewed: nursing Medications & Allergies - Medications Allergies/Adverse Reactions: Allergies iodine Allergy (Verified 05/12/17 12:49) Swelling levofloxacin [From Levaquin] Allergy (Verified 05/12/17 12:49) Swelling linezolid [From Zyvox] Allergy (Verified 05/12/17 12:49) Hives morphine Allergy (Verified 05/12/17 12:49) Swelling Sulfa (Sulfonamide Antibiotics) Allergy (Verified 05/12/17 12:49) Swelling vancomycin Allergy (Verified 05/12/17 12:49) Swelling Home Medications: Home Medications Medication Instructions Recorded Confirmed Last Taken Type Gabapentin 400 mg PO QHS 09/12/16 03/31/18 09/11/16 History Lisinopril 40 mg PO QHS 09/12/16 03/31/18 09/11/16 History Renvela 800 mg PO TID 09/12/16 03/31/18 09/10/16 History Dulcolax tab 4 mg PO DAILY #30 10/20/16 03/31/18 Unknown Rx Ferrous Sulfate [Feosol 325 MG tab] 325 mg PO TID #30 tablet 10/20/16 03/31/18 Unknown Rx ALPRAZolam [Xanax] 1 mg PO QDAY PRN 08/12/17 03/31/18 Unknown History B Complex 11/Folic/C/Biot/Zinc 1 each PO QDAY 08/12/17 03/31/18 Unknown History [Dialyvite with Zinc Tablet] HYDROcodone/APAP 10-325 [[place] 1 each PO Q8HR PRN 08/12/17 03/31/18 Unknown History 10-325 mg TAB] Hydralazine HCl 50 mg PO Q8H 08/12/17 03/31/18 Unknown History Metoprolol Tartrate 50 mg PO QAM 08/12/17 03/31/18 Unknown History Propranolol HCl 80 mg PO BID 08/12/17 03/31/18 Unknown History Active Medications: Generic Name Dose Route Start Last Admin Trade Name Freq PRN Reason Stop Dose Admin Acetaminophen 650 mg 03/31/18 10:50 04/03/18 21:48 Tylenol PO 650 mg Q4H PRN Administration Pain MILD(1-3)/Fever >100.5/JENKINS Alprazolam 1 mg 03/31/18 15:28 Xanax PO QDAY PRN Anxiety Diphenhydramine HCl 25 mg 03/31/18 12:20 04/01/18 12:39 Benadryl PO 25 mg Q6H PRN Administration Itching Enoxaparin Sodium 30 mg 04/01/18 10:00 04/03/18 10:33 Lovenox SUB-Q Not Given QDAY [facility] Ferrous Sulfate 325 mg 03/31/18 15:00 04/03/18 21:50 Feosol PO 325 mg TID [facility] Administration Gabapentin 400 mg 03/31/18 22:00 04/03/18 21:48 Neurontin PO 400 mg QHS [facility] Administration Heparin Sodium (Porcine) 1,000 unit 03/31/18 11:26 04/03/18 10:14 Heparin 10,000 Units/10 Ml IV 1,000 unit SONIDO PRN Administration hemodialysis Hydralazine HCl 50 mg 03/31/18 22:00 04/03/18 21:50 Apresoline PO Not Given Q8HR [facility] Sodium Chloride 100 mls @ 999 mls/hr 03/31/18 11:26 Nacl 0.9% IV SONIDO PRN Hypotension Ceftriaxone Sodium 2 gm in 100 mls @ 200 mls/hr 04/03/18 22:00 Rocephin/Ns 2 Gm/100 Ml IV Q12HR [facility] Protocol Lisinopril 40 mg 03/31/18 22:00 04/03/18 21:52 Zestril PO Not Given QHS [facility] Metoprolol Tartrate 50 mg 04/01/18 10:00 04/03/18 10:33 [facility] Multivit/Ca Carb/B Cmplx/FA/Prenat 1 cap 04/01/18 10:00 04/03/18 10:33 Renal Caps PO Not Given QDAY [facility] Ondansetron HCl 4 mg 03/31/18 10:50 Zofran IV Q8H PRN Nausea And Vomiting Oxycodone/Acetaminophen 1 tab 03/31/18 12:21 04/02/18 03:03 Percocet 5/325 PO 1 tab Q6H PRN Administration Pain, Moderate (4-6) Propranolol HCl 80 mg 03/31/18 22:00 04/03/18 21:51 Inderal PO Not Given BID DANIELLE Sevelamer Carbonate 800 mg 03/31/18 17:30 04/03/18 17:45 Renvela PO Not Given AC DANIELLE Sodium Chloride 10 ml 03/31/18 22:00 04/03/18 21:52 Sodium Chloride Flush Syringe 10 Ml IV 10 ml BID DANIELLE Administration Sodium Chloride 10 ml 03/31/18 10:50 Sodium Chloride Flush Syringe 10 Ml IV PRN PRN LINE FLUSH
[2018-04-04] MEDS: RENVELA PO SCH ×2 (11:30→16:02)
--- NOTE | 2018-04-04 12:10 | Progress Note ---
Assessment and Plan Cultures: Blood culture 04/01/2018 no growth today. MRSA screening negative Assessment: 42 y/o female with history of hypertension, left BKA 2006 due to foot infection and ESRD on HD; admitted on 03/31/2018 due to right hip pain then developed fever and AMS: 1) Sepsis: NOT Present on admission, Still fever and tachycardia, Etiology unclear. DDx: influenza, meningitis, pneumonia, endocarditis (pt has a murmur and AICD in place). Blood culture 04/01/2018 no growth today. CXR no consolidations. MRSA screening negative. CRP 36.50 2) Recent fall: Patient fell to the right hip has been having aching pain in the right hip and right thigh since. Patient states that the pain is so bad she is having difficulty moving or walking. Patient had another fall the day before a dmission and was on the ground lying on her right side for approximately 3+ hours. XR femur neg. XR hip neg. 3) Allergy to vancomcyin, linezolid and levaquin 4) AMS: from sepsis +/- meningitis Recommendations: - obtain lumbar puncture send CSF for Gram, cultures, cell count, diff, VDRL, Cryptococcus Ag, HSV PCR - pending - follow-up blood cultures - f/u Influenza rapid antigen and PCR NIKI - continue tamiflu renally adjusted - continue ceftriaxone 2 gm IV q12h, D2 - continue acyclovir 240 mg IV qday renally adjusted - unable to add coverage for Ceftriaxone-resistant Strep pneumoniae because patient is allergic to vancomycin and linezolid - f/u [facility]TE [facility] M: [phone] O:[phone] Subjective Date of service: 04/04/18 Interval history: Patient seen and examined. Asleep, difficult to arouse, eyes ope, but does not follow simple commands. no family at bedside. Objective - Exam Narrative Exam: eneral appearance: Asleep, difficult to arouse, mild resp distress, somnolent Eyes: anicteric sclerae, moist conjunctivae; no lid-lag; PERRLA HENT: Atraumatic; oropharynx clear Neck: Trachea midline; supple, no thyromegaly or lymphadenopathy Lungs: eileen scattered crackles CV: RRR, + murmurs Abdomen: Soft, TTP Extremities: left BKA stump clear, eileen thigh edema Skin: Normal temperature, turgor and texture; no rash, ulcers or subcutaneous no dules Psych: Appropriate affect, alert and oriented to person, place and time. Neuro: alert and oriented x 3. Moving all extermities - Constitutional Vitals: Vital Signs Temp Pulse Resp BP Pulse Ox 98.9 F 98 H 20 95/44 98 04/04/18 08:00 04/03/18 21:52 04/03/18 12:45 04/03/18 21:52 04/03/18 05:01 Temperature -Last 24 Hours Temperature 98.9 F Temperature 100.7 F Temperature 102.0 F Temperature 101.7 F Temperature 98.2 F - Labs CBC & Chem 7: 04/04/18 05:14 04/04/18 05:14 Labs: Abnormal lab results 04/03/18 04/03/18 04/04/18 Range/Units 15:22 17:25 05:14 RBC 3.20 L (3.65-5.03) M/mm3 Hgb 9.9 L (10.1-14.3) gm/dl RDW 18.0 H (13.2-15.2) % Plt Count 68 L (140-440) K/mm3 Seg Neuts % (Manual) 81.0 H (40.0-70.0) % Lymphocytes % (Manual) 6.0 L (13.4-35.0) % Lymphocytes # (Manual) 0.5 L (1.2-5.4) K/mm3 PT (12.2-14.9) Sec. INR (0.87-1.13) Chloride 95.0 L (98-107) mmol/L BUN 21 H (7-17) mg/dL Creatinine 5.1 H (0.7-1.2) mg/dL Glucose (65-100) mg/dL Calcium (8.4-10.2) mg/dL AST 80 H (5-40) units/L C-Reactive Protein 36.50 H (0.00-1.30) mg/dL Albumin 3.2 L (3.9-5) g/dL 04/04/18 04/04/18 Range/Units 05:14 09:14 RBC (3.65-5.03) M/mm3 Hgb (10.1-14.3) gm/dl RDW (13.2-15.2) % Plt Count (140-440) K/mm3 Seg Neuts % (Manual) (40.0-70.0) % Lymphocytes % (Manual) (13.4-35.0) % Lymphocytes # (Manual) (1.2-5.4) K/mm3 PT 20.5 H (12.2-14.9) Sec. INR 1.64 H (0.87-1.13) Chloride (98-107) mmol/L BUN 26 H (7-17) mg/dL Creatinine 6.5 H (0.7-1.2) mg/dL Glucose 64 L (65-100) mg/dL Calcium 8.2 L (8.4-10.2) mg/dL AST (5-40) units/L C-Reactive Protein (0.00-1.30) mg/dL Albumin (3.9-5) g/dL
[2018-04-04] MEDS: APRESOLINE PO SCH (14:02)
[2018-04-04] MEDS: ROCEPHIN/NS 2 GM/100 ML 2 GM/100 ML BAG IV SCH (14:15)
--- NOTE | 2018-04-04 14:38 | Progress Note ---
Assessment and Plan Assessment and plan: Altered mental status, metabolic encephalopathy - CT head was normal, ammonia level is within normal limit - Altered mental status resolved SIRS. Pt still shooting fever. Blood cultures negative so far, lactic acid level was normal. Empiric ceftriaxone, Tamiflu and acyclovir. ID was consulted. patient will have LP today. ?meningitis Right hip pain; x-rays negative. cause unknown. PT eval. ESRD; Continue Monday, and Monday hemodialysis schedule per nephrology. Nephrology consulted Nonischemic cardiomyopathy. Echo done 03/2017 showed EF 35%, atrial septal aneurysm present, patent PFO, LA and RA severely dilated, mild MR, mod TR, mild AR, restrictive diastolic filling, RV mod dilated, mod pulm HTN. Chronic systolic heart failure. Compensated. Continue hemodialysis for negative fluid balance. AICD. Pulmonary hypertension. Continue supportive care. PFO/atrial septal aneurysm. Hypertension. Continue antihypertensive medications. Peripheral neuropathy. Continue gabapentin. Left BKA. DVT prophylaxis. Lovenox. Disposition; continue MICU care. Prognosis; guarded. History Interval history: Patient was seen and evaluated this morning, patient was alert and oriented. No headache or chest pain. Hospitalist Physical - Physical exam Narrative exam: Not in cardiopulmonary distress. The patient appeared well nourished and normally developed. Vital signs as documented. Head exam is unremarkable. No scleral icterus . Neck is without jugular venous distension, thyromegaly, or carotid bruits. Lungs are clear to auscultation. Cardiac exam reveals regular rate and Rhythm. First and second heart sounds normal. No murmurs, rubs or gallops. Abdominal exam reveals normal bowel sounds, no masses, no organomegaly and no aortic enlargement. Extremities left BKA. MORTICIAN HELPER: Alert and oriented. No meningeal signs. - Constitutional Vitals: Temp Pulse Resp BP Pulse Ox 98.2 F 98 H 20 95/44 98 04/04/18 12:00 04/03/18 21:52 04/03/18 12:45 04/03/18 21:52 04/03/18 05:01 General appearance: Present: no acute distress, well-nourished Results - Labs CBC & Chem 7: 04/04/18 05:14 04/04/18 05:14 Labs: Laboratory Last Values WBC 7.5 K/mm3 (4.5-11.0) 04/04/18 05:14 RBC 3.20 M/mm3 (3.65-5.03) L 04/04/18 05:14 Hgb 9.9 gm/dl (10.1-14.3) L 04/04/18 05:14 Hct 30.4 % (30.3-42.9) 04/04/18 05:14 MCV 95 fl (79-97) 04/04/18 05:14 MCH 31 pg (28-32) 04/04/18 05:14 MCHC 33 % (30-34) 04/04/18 05:14 RDW 18.0 % (13.2-15.2) H 04/04/18 05:14 Plt Count 68 K/mm3 (140-440) L 04/04/18 05:14 Lymph % (Auto) 5.3 % (13.4-35.0) L 04/02/18 04:59 [place] % (Auto) 5.3 % (0.0-7.3) 04/02/18 04:59 Eos % (Auto) 2.0 % (0.0-4.3) 04/02/18 04:59 Baso % (Auto) 0.6 % (0.0-1.8) 04/02/18 04:59 Lymph # 0.4 K/mm3 (1.2-5.4) L 04/02/18 04:59 [place] # 0.4 K/mm3 (0.0-0.8) 04/02/18 04:59 Eos # 0.1 K/mm3 (0.0-0.4) 04/02/18 04:59 Baso # 0.0 K/mm3 (0.0-0.1) 04/02/18 04:59 Add Manual Diff Complete 04/04/18 05:14 Total Counted 100 04/04/18 05:14 Seg Neutrophils % 86.8 % (40.0-70.0) H 04/02/18 04:59 Seg Neuts % (Manual) 81.0 % (40.0-70.0) H 04/04/18 05:14 Band Neutrophils % 9.0 % 04/04/18 05:14 Lymphocytes % (Manual) 6.0 % (13.4-35.0) L 04/04/18 05:14 Reactive Lymphs % (Man) 0 % 04/04/18 05:14 Monocytes % (Manual) 2.0 % (0.0-7.3) 04/04/18 05:14 Eosinophils % (Manual) 1.0 % (0.0-4.3) 04/04/18 05:14 Basophils % (Manual) 1.0 % (0.0-1.8) 04/04/18 05:14 Metamyelocytes % 0 % 04/04/18 05:14 Myelocytes % 0 % 04/04/18 05:14 Promyelocytes % 0 % 04/04/18 05:14 Blast Cells % 0 % 04/04/18 05:14 Nucleated RBC % Not Reportable 04/04/18 05:14 Seg Neutrophils # 6.2 K/mm3 (1.8-7.7) 04/02/18 04:59 Seg Neutrophils # Man 6.1 K/mm3 (1.8-7.7) 04/04/18 05:14 Band Neutrophils # 0.7 K/mm3 04/04/18 05:14 Lymphocytes # (Manual) 0.5 K/mm3 (1.2-5.4) L 04/04/18 05:14 Abs React Lymphs (Man) 0.0 K/mm3 04/04/18 05:14 Monocytes # (Manual) 0.2 K/mm3 (0.0-0.8) 04/04/18 05:14 Eosinophils # (Manual) 0.1 K/mm3 (0.0-0.4) 04/04/18 05:14 Basophils # (Manual) 0.1 K/mm3 (0.0-0.1) 04/04/18 05:14 Metamyelocytes # 0.0 K/mm3 04/04/18 05:14 Myelocytes # 0.0 K/mm3 04/04/18 05:14 Promyelocytes # 0.0 K/mm3 04/04/18 05:14 Blast Cells # 0.0 K/mm3 04/04/18 05:14 WBC Morphology Not Reportable 04/04/18 05:14 Hypersegmented Neuts Not Reportable 04/04/18 05:14 Hyposegmented Neuts Not Reportable 04/04/18 05:14 Hypogranular Neuts Not Reportable 04/04/18 05:14 Smudge Cells Not Reportable 04/04/18 05:14 Toxic Granulation Not Reportable 04/04/18 05:14 Toxic Vacuolation Not Reportable 04/04/18 05:14 Dohle Bodies Not Reportable 04/04/18 05:14 Pelger-Huet Anomaly Not Reportable 04/04/18 05:14 Ramone Rods Not Reportable 04/04/18 05:14 Platelet Estimate Appears normal 04/04/18 05:14 Clumped Platelets Not Reportable 04/04/18 05:14 Plt Clumps, EDTA Not Reportable 04/04/18 05:14 Large Platelets Few 04/04/18 05:14 Giant Platelets Not Reportable 04/04/18 05:14 Platelet Satelliting Not Reportable 04/04/18 05:14 Plt Morphology Comment Not Reportable 04/04/18 05:14 RBC Morphology Not Reportable 04/04/18 05:14 Dimorphic RBCs Not Reportable 04/04/18 05:14 Polychromasia Not Reportable 04/04/18 05:14 Hypochromasia Not Reportable 04/04/18 05:14 Poikilocytosis 1+ 04/04/18 05:14 Anisocytosis 1+ 04/04/18 05:14 Microcytosis Not Reportable 04/04/18 05:14 Macrocytosis Not Reportable 04/04/18 05:14 Spherocytes Not Reportable 04/04/18 05:14 Pappenheimer Bodies Not Reportable 04/04/18 05:14 Sickle Cells Not Reportable 04/04/18 05:14 Target Cells Not Reportable 04/04/18 05:14 Tear Drop Cells 1+ 04/04/18 05:14 Ovalocytes 1+ 04/04/18 05:14 Helmet Cells Not Reportable 04/04/18 05:14 [place] Bodies Not Reportable 04/04/18 05:14 [place] Rings Not Reportable 04/04/18 05:14 [place] Cells Not Reportable 04/04/18 05:14 Bite Cells Not Reportable 04/04/18 05:14 Crenated Cell Not Reportable 04/04/18 05:14 Elliptocytes 1+ 04/04/18 05:14 Acanthocytes (Spur) Not Reportable 04/04/18 05:14 Rouleaux Not Reportable 04/04/18 05:14 Hemoglobin C Crystals Not Reportable 04/04/18 05:14 Schistocytes Not Reportable 04/04/18 05:14 Malaria parasites Not Reportable 04/04/18 05:14 [place] Bodies Not Reportable 04/04/18 05:14 Hem Pathologist Commnt No 04/04/18 05:14 PT 20.5 Sec. (12.2-14.9) H 04/04/18 09:14 INR 1.64 (0.87-1.13) H 04/04/18 09:14 APTT 33.6 Sec. (24.2-36.6) 04/04/18 09:14 Sodium 140 mmol/L (137-145) 04/04/18 05:14 Potassium 3.8 mmol/L (3.6-5.0) 04/04/18 05:14 Chloride 100.1 mmol/L (98-107) 04/04/18 05:14 Carbon Dioxide 26 mmol/L (22-30) 04/04/18 05:14 Anion Gap 18 mmol/L 04/04/18 05:14 BUN 26 mg/dL (7-17) H 04/04/18 05:14 Creatinine 6.5 mg/dL (0.7-1.2) H 04/04/18 05:14 Estimated GFR 8 ml/min 04/04/18 05:14 BUN/Creatinine Ratio 4 % 04/04/18 05:14 Glucose 64 mg/dL (65-100) L 04/04/18 05:14 POC Glucose 107 (70-105) H 04/02/18 22:28 Lactic Acid 1.90 mmol/L (0.7-2.0) 04/03/18 00:06 Calcium 8.2 mg/dL (8.4-10.2) L 04/04/18 05:14 Total Bilirubin 1.00 mg/dL (0.1-1.2) 04/03/18 15:22 AST 80 units/L (5-40) H 04/03/18 15:22 ALT 46 units/L (7-56) 04/03/18 15:22 Alkaline Phosphatase 123 units/L (35-129) 04/03/18 15:22 Ammonia 30.0 umol/L (25-60) 04/03/18 15:22 Total Creatine Kinase 7715 units/L (30-135) H 03/31/18 07:20 C-Reactive Protein 36.50 mg/dL (0.00-1.30) H 04/03/18 17:25 Total Protein 7.5 g/dL (6.3-8.2) 04/03/18 15:22 Albumin 3.2 g/dL (3.9-5) L 04/03/18 15:22 Albumin/Globulin Ratio 0.7 % 04/03/18 15:22 Blood Type O POSITIVE 04/01/18 14:52 Antibody Screen Negative 04/01/18 14:52
[2018-04-04] MEDS: TAMIFLU PO SCH (20:06)
[2018-04-04] MEDS: TYLENOL PO PRN (23:25)
[2018-04-05] MEDS ORDERED: D50W (25GM) Syringe IV ONE (00:27)
[2018-04-05] MEDS: ROCEPHIN/NS 2 GM/100 ML 2 GM/100 ML BAG IV SCH ×3 (00:55→23:13)
[2018-04-05] MEDS: APRESOLINE PO SCH ×4 (00:59→23:11)
[2018-04-05] MEDS: FEOSOL PO SCH ×4 (01:38→23:14)
[2018-04-05] MEDS: NEURONTIN PO SCH ×2 (01:38→23:14)
[2018-04-05] MEDS: ZESTRIL PO SCH ×2 (01:38→23:16)
[2018-04-05] MEDS: SODIUM CHLORIDE FLUSH SYRINGE 10 ML IV SCH ×3 (01:40→23:15)
[2018-04-05 03:31] LABS: Basophils # (Auto) 0.1 K/mm3 (0.0-0.1); Eosinophils # (Auto) 0.2 K/mm3 (0.0-0.4); Eosinophils % (Auto) 3.1 % (0.0-4.3); Hemoglobin 9.8 gm/dl (10.1-14.3); Lymphocytes # (Auto) 0.7 K/mm3 (1.2-5.4); Lymphocytes % (Auto) 8.4 % (13.4-35.0); Mean Corpuscular HGB Conc 33 % (30-34); Mean Corpuscular Volume 95 fl (79-97); Monocytes # (Auto) 0.6 K/mm3 (0.0-0.8); Monocytes % (Auto) 7.2 % (0.0-7.3); Red Blood Count 3.14 M/mm3 (3.65-5.03); Red Cell Distribution Width 17.7 % (13.2-15.2)
[2018-04-05 03:40] LABS: Platelet Count 81 K/mm3 (140-440)
[2018-04-05 04:14] LABS: Blood Urea Nitrogen TNR mg/dL (7-17)
[2018-04-05 04:15] LABS: BUN/Creatinine Ratio TNR; Calcium TNR mg/dL (8.4-10.2); Hemolysis Index TNR
[2018-04-05 06:20] LABS: Calcium 8.3 mg/dL (8.4-10.2)
[2018-04-05] MEDS ORDERED: NACL 0.9% 100 ML IV PRN (07:21)
--- NOTE | 2018-04-05 07:49 | Progress Note ---
Assessment and Plan Cultures: Blood culture 04/01/2018 no growth MRSA screening negative Blood culture 04/04/2018 no growth Assessment: 42 y/o female with history of hypertension, left BKA 2007 due to foot infection and ESRD on HD; admitted on 03/31/2018 due to right hip pain then developed fever and AMS: 1) Sepsis: still fever; NOT Present on admission, manifested by fever on 04/01/2018, tachycardia. Etiology unclear. DDx: influenza, meningitis, pneumonia, endocarditis (pt has a murmur and AICD in place). - Blood culture 04/01/2018 no growth - Blood culture 04/04/2018 no growth - CXR no consolidations. - MRSA screening negative. 2) Recent fall: Patient fell to the right hip has been having aching pain in the right hip and right thigh since. Patient states that the pain is so bad she is having difficulty moving or walking. Patient had another fall the day before admission and was on the ground lying on her right side for approximately 3+ hours. XR femur neg. XR hip neg. 3) Allergy to vancomcyin, linezolid and levaquin 4) AMS: from sepsis +/- meningitis Recommendations: - obtain lumbar puncture send CSF for Gram, cultures, cell count, diff, VDRL, Cryptococcus Ag, HSV PCR - pending - Influenza rapid antigen and PCR NIKI - pending - Continue tamiflu renally adjusted D2 - Continue ceftriaxone 2 gm IV q12h D2 - Continue acyclovir 240 mg IV qday renally adjusted D2 - unable to add coverage for Ceftriaxone-resistant Strep pneumoniae causing meningitis because patient is allergic to vancomycin and linezolid - TTE - pending Will follow. Malu Camacho MD Infectious Diseases Swimming Instructor [facility] M [phone] O [phone] Subjective Date of service: 04/05/18 Principal diagnosis: SIRS Interval history: Feels better, alert, talking, however still fever overnight. Denies headache, chest pain or SOB Review of Systems: General: + fever, chills Cutaneous: no rash, pruritus Respiratory: no cough, chest pain, SOB Gastrointestinal: no nausea, vomiting, + diarrheax2 \ Objective - Exam Narrative Exam: General appearance: Alert in NAD, talking Eyes: anicteric sclerae, moist conjunctivae; no lid-lag; PERRLA HENT: Atraumatic; oropharynx clear Neck: Trachea midline; supple, no thyromegaly or lymphadenopathy Lungs:CTA CV: RRR, + murmurs Abdomen: Soft, TTP Extremities: left BKA stump clear, eileen thigh edema Skin: Normal temperature, turgor and texture; no rash, ulcers or subcutaneous nodules Psych: Appropriate affect, alert and oriented to person, place and time. Neuro: alert and oriented x 3. Moving all extermities - Constitutional Vitals: Vital Signs Temp Pulse Resp BP Pulse Ox 99.0 F 80 11 L 106/61 99 04/05/18 04:00 04/05/18 06:41 04/05/18 06:41 04/05/18 06:41 04/05/18 06:41 Temperature -Last 24 Hours Temperature 99.0 F Temperature 100.5 F Temperature 98.2 F Temperature 98.9 F - Labs CBC & Chem 7: 04/05/18 03:05 04/05/18 05:39 Labs: Abnormal lab results 04/04/18 04/05/18 04/05/18 Range/Units 09:14 00:07 01:38 RBC (3.65-5.03) M/mm3 Hgb (10.1-14.3) gm/dl Hct (30.3-42.9) % RDW (13.2-15.2) % Plt Count (140-440) K/mm3 Lymph % (Auto) (13.4-35.0) % Lymph # (1.2-5.4) K/mm3 Seg Neutrophils % (40.0-70.0) % PT 20.5 H (12.2-14.9) Sec. INR 1.64 H (0.87-1.13) BUN (7-17) mg/dL Creatinine (0.7-1.2) mg/dL Glucose (65-100) mg/dL POC Glucose 54 L 109 H (70-105) Calcium (8.4-10.2) mg/dL 04/05/18 04/05/18 04/05/18 Range/Units 03:05 03:47 05:39 RBC 3.14 L (3.65-5.03) M/mm3 Hgb 9.8 L (10.1-14.3) gm/dl Hct 30.0 L (30.3-42.9) % RDW 17.7 H (13.2-15.2) % Plt Count 81 L (140-440) K/mm3 Lymph % (Auto) 8.4 L (13.4-35.0) % Lymph # 0.7 L (1.2-5.4) K/mm3 Seg Neutrophils % 80.3 H (40.0-70.0) % PT (12.2-14.9) Sec. INR (0.87-1.13) BUN 32 H (7-17) mg/dL Creatinine 7.0 H (0.7-1.2) mg/dL Glucose 132 H (65-100) mg/dL POC Glucose 146 H (70-105) Calcium 8.3 L (8.4-10.2) mg/dL 04/05/18 Range/Units 06:05 RBC (3.65-5.03) M/mm3 Hgb (10.1-14.3) gm/dl Hct (30.3-42.9) % RDW (13.2-15.2) % Plt Count (140-440) K/mm3 Lymph % (Auto) (13.4-35.0) % Lymph # (1.2-5.4) K/mm3 Seg Neutrophils % (40.0-70.0) % PT (12.2-14.9) Sec. INR (0.87-1.13) BUN (7-17) mg/dL Creatinine (0.7-1.2) mg/dL Glucose (65-100) mg/dL POC Glucose 131 H (70-105) Calcium (8.4-10.2) mg/dL
[2018-04-05] MEDS: RENVELA PO SCH ×4 (08:34→16:32)
--- NOTE | 2018-04-05 09:25 | Progress Note ---
Assessment and Plan - Patient Problems (1) End stage renal disease on dialysis Current Visit: Yes Status: Chronic Plan to address problem: Continue on TTS inpatient HD schedule. Will adjust UF goals.. (2) Altered mental status Current Visit: Yes Status: Acute Plan to address problem: Unclear etiology. CT head negative. ID evaluation/work up noted. Pending LP today. Gabapentin dose should be decreased based on her ESRD. Will decrease to 100 mg QHS. (3) Right hip pain Current Visit: Yes Status: Acute Plan to address problem: Stable at this time. Avoid significant pain medications in this patient with lethargy/AMS. Agree with Tylenol PRN. (4) Hypertensive chronic kidney disease with stage 5 chronic kidney disease or end stage renal disease Current Visit: No Status: Acute Plan to address problem: Agree with holding antihypertensive at present time. Need to avoid hypotension as this can also likely contribute to her AMS and lethargy. (5) Type 2 diabetes mellitus with diabetic chronic kidney disease Current Visit: No Status: Acute Plan to address problem: DM management per ICU team (6) Anemia in chronic kidney disease, on chronic dialysis Current Visit: No Status: Chronic Plan to address problem: Epogen with HD Subjective Date of service: 04/05/18 Principal diagnosis: SIRS Interval history: no acute events overnight. Remains with spiking fevers, tmax 101.3 per staff. Still remains lethargic. Plan for LP today to r/o meningitis. On prophylactic measures with ROcephin and acyclovir. Also receiving tamiflu at renally adjusted dose. Pending HD today per her TTS schedule. Will adjust her UF goal based on low bp readings in the setting of persistent fevers Objective - Vital Signs Vital signs: Vital Signs - 12hr 04/04/18 04/04/18 04/04/18 21:31 21:41 21:51 Temperature Pulse Rate 87 85 84 Pulse Rate [ Apical] Respiratory 15 12 13 Rate Blood Pressure 92/42 92/42 92/42 O2 Sat by Pulse 96 96 96 Oximetry 04/04/18 04/04/18 04/04/18 22:00 22:11 22:21 Temperature Pulse Rate 86 84 84 Pulse Rate [ 94 H Apical] Respiratory 12 13 14 Rate Blood Pressure 105/56 105/56 105/56 O2 Sat by Pulse 98 96 97 Oximetry 02/27/19 02/27/19 02/27/19 22:31 22:41 22:51 Temperature Pulse Rate 85 86 84 Pulse Rate [ Apical] Respiratory 12 11 L 14 Rate Blood Pressure 105/56 105/56 105/56 O2 Sat by Pulse 98 97 95 Oximetry 04/04/18 04/04/18 04/04/18 23:00 23:11 23:21 Temperature Pulse Rate 85 84 84 Pulse Rate [ Apical] Respiratory 18 14 12 Rate Blood Pressure 110/62 110/62 110/62 O2 Sat by Pulse 95 98 98 Oximetry 04/04/18 04/04/18 04/04/18 23:30 23:41 23:51 Temperature Pulse Rate 87 85 90 Pulse Rate [ Apical] Respiratory 19 12 11 L Rate Blood Pressure 110/62 110/62 O2 Sat by Pulse 97 94 96 Oximetry 04/05/18 04/05/18 04/05/18 00:00 00:11 00:21 Temperature 100.5 F H Pulse Rate 86 84 85 Pulse Rate [ Apical] Respiratory 13 11 L 22 Rate Blood Pressure 112/62 112/62 112/62 O2 Sat by Pulse 98 96 95 Oximetry 04/05/18 04/05/18 04/05/18 00:31 00:41 00:51 Temperature Pulse Rate 85 86 85 Pulse Rate [ Apical] Respiratory 10 L 16 16 Rate Blood Pressure 112/62 112/62 112/62 O2 Sat by Pulse 96 98 95 Oximetry 04/05/18 04/05/18 04/05/18 00:59 01:00 01:11 Temperature Pulse Rate 83 86 87 Pulse Rate [ Apical] Respiratory 13 15 Rate Blood Pressure 110/62 118/66 118/66 O2 Sat by Pulse 96 85 Oximetry 04/05/18 04/05/18 04/05/18 01:21 01:31 01:38 Temperature Pulse Rate 84 83 83 Pulse Rate [ Apical] Respiratory 15 10 L Rate Blood Pressure 118/66 118/66 118/63 O2 Sat by Pulse 83 L 84 Oximetry 04/05/18 04/05/18 04/05/18 01:41 01:51 02:00 Temperature Pulse Rate 83 86 82 Pulse Rate [ Apical] Respiratory 15 13 12 Rate Blood Pressure 118/66 118/66 114/60 O2 Sat by Pulse 98 98 98 Oximetry 04/05/18 04/05/18 04/05/18 02:11 02:21 02:31 Temperature Pulse Rate 84 82 85 Pulse Rate [ Apical] Respiratory 18 14 16 Rate Blood Pressure 114/60 114/60 114/60 O2 Sat by Pulse 98 96 98 Oximetry 04/05/18 04/05/18 04/05/18 02:41 02:51 03:00 Temperature Pulse Rate 80 89 84 Pulse Rate [ Apical] Respiratory 11 L 16 14 Rate Blood Pressure 114/60 114/60 93/44 O2 Sat by Pulse 98 99 98 Oximetry 04/05/18 04/05/18 04/05/18 03:11 03:21 03:31 Temperature Pulse Rate 82 80 79 Pulse Rate [ Apical] Respiratory 11 L 14 11 L Rate Blood Pressure 93/44 93/44 93/44 O2 Sat by Pulse 94 95 95 Oximetry 04/05/18 04/05/18 04/05/18 03:41 03:51 04:00 Temperature 99.0 F Pulse Rate 77 80 80 Pulse Rate [ Apical] Respiratory 12 12 11 L Rate Blood Pressure 93/44 93/44 102/46 O2 Sat by Pulse 96 96 97 Oximetry 04/05/18 04/05/18 04/05/18 04:03 04:11 04:21 Temperature Pulse Rate 79 77 Pulse Rate [ 80 Apical] Respiratory 11 L 11 L 10 L Rate Blood Pressure 102/46 102/46 O2 Sat by Pulse 97 98 91 Oximetry 04/05/18 04/05/18 04/05/18 04:31 04:41 04:51 Temperature Pulse Rate 77 80 80 Pulse Rate [ Apical] Respiratory 13 11 L 10 L Rate Blood Pressure 102/46 102/46 102/46 O2 Sat by Pulse 77 L 74 L 97 Oximetry 04/05/18 04/05/18 04/05/18 05:00 05:11 05:21 Temperature Pulse Rate 80 81 76 Pulse Rate [ Apical] Respiratory 10 L 11 L 8 L Rate Blood Pressure 103/52 103/52 103/52 O2 Sat by Pulse 97 99 98 Oximetry 04/05/18 04/05/18 04/05/18 05:31 05:41 05:51 Temperature Pulse Rate 77 74 76 Pulse Rate [ Apical] Respiratory 9 L 9 L 9 L Rate Blood Pressure 103/52 103/52 103/52 O2 Sat by Pulse 99 98 98 Oximetry 04/05/18 04/05/18 04/05/18 06:00 06:11 06:21 Temperature Pulse Rate 75 74 76 Pulse Rate [ Apical] Respiratory 9 L 10 L 10 L Rate Blood Pressure 106/61 106/61 106/61 O2 Sat by Pulse 98 100 99 Oximetry 04/05/18 04/05/18 06:31 06:41 Temperature Pulse Rate 76 80 Pulse Rate [ Apical] Respiratory 10 L 11 L Rate Blood Pressure 106/61 106/61 O2 Sat by Pulse 99 99 Oximetry - General Appearance General appearance: well-developed, appears stated age, fatigue EENT: ATNC, PERRL Neck: no JVD, no thyromegaly Respiratory: Present: Clear to Ascultation Cardiology: regular, S1S2 Gastrointestinal: normal, normoactive bowel sounds Integumentary: no rash, warm and dry Neurologic: confused, other (remains lethargic this am) Musculoskeletal: other (-edema ) - Lab 04/05/18 03:05 04/05/18 05:39 Most recent lab results Calcium 8.3 mg/dL (8.4-10.2) L 04/05/18 05:39 - Allied health notes Allied health notes reviewed: nursing Medications & Allergies - Medications Allergies/Adverse Reactions: Allergies iodine Allergy (Verified 05/12/17 12:49) Swelling levofloxacin [From Levaquin] Allergy (Verified 05/12/17 12:49) Swelling linezolid [From Zyvox] Allergy (Verified 05/12/17 12:49) Hives morphine Allergy (Verified 05/12/17 12:49) Swelling Sulfa (Sulfonamide Antibiotics) Allergy (Verified 05/12/17 12:49) Swelling vancomycin Allergy (Verified 05/12/17 12:49) Swelling Home Medications: Home Medications Medication Instructions Recorded Confirmed Last Taken Type Gabapentin 400 mg PO QHS 09/12/16 03/31/18 09/11/16 History Lisinopril 40 mg PO QHS 09/12/16 03/31/18 09/11/16 History Renvela 800 mg PO TID 09/12/16 03/31/18 09/10/16 History Dulcolax tab 4 mg PO DAILY #30 10/20/16 03/31/18 Unknown Rx Ferrous Sulfate [Feosol 325 MG tab] 325 mg PO TID #30 tablet 10/20/16 03/31/18 Unknown Rx ALPRAZolam [Xanax] 1 mg PO QDAY PRN 08/12/17 03/31/18 Unknown History B Complex 11/Folic/C/Biot/Zinc 1 each PO QDAY 08/12/17 03/31/18 Unknown History [Dialyvite with Zinc Tablet] HYDROcodone/APAP 10-325 [Dexter 1 each PO Q8HR PRN 08/12/17 03/31/18 Unknown History 10-325 mg TAB] Hydralazine HCl 50 mg PO Q8H 08/12/17 03/31/18 Unknown History Metoprolol Tartrate 50 mg PO QAM 08/12/17 03/31/18 Unknown History Propranolol HCl 80 mg PO BID 08/12/17 03/31/18 Unknown History Active Medications: Generic Name Dose Route Start Last Admin Trade Name Freq PRN Reason Stop Dose Admin Acetaminophen 650 mg 03/31/18 10:50 04/04/18 23:25 Tylenol PO 650 mg Q4H PRN Administration Pain MILD(1-3)/Fever >100.5/JENKINS Alprazolam 1 mg 03/31/18 15:28 Xanax PO QDAY PRN Anxiety Diphenhydramine HCl 25 mg 03/31/18 12:20 04/01/18 12:39 Benadryl PO 25 mg Q6H PRN Administration Itching Ferrous Sulfate 325 mg 03/31/18 15:00 04/05/18 08:34 Feosol PO 325 mg TID DANIELLE Administration Gabapentin 100 mg 04/04/18 22:00 04/05/18 01:38 Neurontin PO 100 mg QHS DANIELLE Administration Heparin Sodium (Porcine) 1,000 unit 03/31/18 11:26 04/03/18 10:14 Heparin 10,000 Units/10 Ml IV 1,000 unit SONIDO PRN Administration hemodialysis Hydralazine HCl 50 mg 03/31/18 22:00 04/05/18 00:59 Apresoline PO Not Given Q8HR DANIELLE Ceftriaxone Sodium 2 gm in 100 mls @ 200 mls/hr 04/04/18 13:30 04/05/18 00:55 Rocephin/Ns 2 Gm/100 Ml IV 200 mls/hr Q12HR DANIELLE Administration Protocol Sodium Chloride 100 mls @ 999 mls/hr 04/05/18 07:21 Nacl 0.9% IV SONIDO PRN Hypotension Lisinopril 40 mg 03/31/18 22:00 04/05/18 01:38 Zestril PO 40 mg QHS DANIELLE Administration Metoprolol Tartrate 50 mg 04/01/18 10:00 04/04/18 10:04 Lopressor PO Not Given QAM DANIELLE Multivit/Ca Carb/B Cmplx/FA/Prenat 1 cap 04/01/18 10:00 04/04/18 10:08 Renal Caps PO Not Given QDAY DANIELLE Ondansetron HCl 4 mg 03/31/18 10:50 Zofran IV Q8H PRN Nausea And Vomiting Oseltamivir Phosphate 30 mg 04/04/18 12:00 04/04/18 20:06 Tamiflu PO 04/07/18 10:01 30 mg DAILY DANIELLE Administration Oxycodone/Acetaminophen 1 tab 03/31/18 12:21 04/02/18 03:03 Percocet 5/325 PO 1 tab Q6H PRN Administration Pain, Moderate (4-6) Propranolol HCl 80 mg 03/31/18 22:00 04/04/18 10:03 Inderal PO Not Given BID DANIELLE Sevelamer Carbonate 800 mg 03/31/18 17:30 04/05/18 08:35 Renvela PO 800 mg AC DANIELLE Administration Sodium Chloride 10 ml 03/31/18 22:00 04/05/18 01:40 Sodium Chloride Flush Syringe 10 Ml IV 10 ml BID DANIELLE Administration Sodium Chloride 10 ml 03/31/18 10:50 Sodium Chloride Flush Syringe 10 Ml IV PRN PRN LINE FLUSH
[2018-04-05] MEDS: INDERAL PO SCH ×2 (10:08→23:10)
[2018-04-05] MEDS: LOPRESSOR PO SCH (10:10)
[2018-04-05] MEDS: Renal Caps PO SCH (10:10)
[2018-04-05] MEDS: TAMIFLU PO SCH (10:11)
[2018-04-05] MEDS ORDERED: NACL 0.9 (PRIMING MACHINE ONLY DIALYSIS) MC ONE (12:19)
[2018-04-05 14:20] LABS: INR 1.19 (0.87-1.13)
--- NOTE | 2018-04-05 17:15 | Progress Note ---
Assessment and Plan Assessment and plan: Altered mental status, metabolic encephalopathy - CT head was normal, ammonia level is within normal limit - Altered mental status resolved SIRS. Pt still shooting fever. Blood cultures negative so far, lactic acid level was normal. Empiric ceftriaxone, Tamiflu and acyclovir. ID was consulted. patient will have LP today. ?meningitis Right hip pain; x-rays negative. cause unknown. PT eval. ESRD; Continue Monday, and Monday hemodialysis schedule per nephrology. Nephrology consulted Nonischemic cardiomyopathy. Echo done 03/2017 showed EF 35%, atrial septal aneurysm present, patent PFO, LA and RA severely dilated, mild MR, mod TR, mild AR, restrictive diastolic filling, RV mod dilated, mod pulm HTN. Chronic systolic heart failure. Compensated. Continue hemodialysis for negative fluid balance. AICD. Pulmonary hypertension. Continue supportive care. PFO/atrial septal aneurysm. Hypertension. Continue antihypertensive medications. Peripheral neuropathy. Continue gabapentin. Left BKA. DVT prophylaxis. Lovenox. Disposition; continue MICU care. Prognosis; guarded. History Interval history: Patient was seen and evaluated this morning, patient was alert and oriented. No headache or chest pain. Hospitalist Physical - Physical exam Narrative exam: Not in cardiopulmonary distress. The patient appeared well nourished and normally developed. Vital signs as documented. Head exam is unremarkable. No scleral icterus . Neck is without jugular venous distension, thyromegaly, or carotid bruits. Lungs are clear to auscultation. Cardiac exam reveals regular rate and Rhythm. First and second heart sounds normal. No murmurs, rubs or gallops. Abdominal exam reveals normal bowel sounds, no masses, no organomegaly and no aortic enlargement. Extremities left BKA. 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 No meningeal signs. - Constitutional Vitals: Temp Pulse Resp BP Pulse Ox 97.6 F 76 16 115/63 97 04/05/18 16:00 04/05/18 16:00 04/05/18 16:00 04/05/18 16:00 04/05/18 16:00 General appearance: Present: no acute distress, well-nourished Results - Labs CBC & Chem 7: 04/05/18 03:05 04/05/18 05:39 Labs: Laboratory Last Values WBC 8.1 K/mm3 (4.5-11.0) 04/05/18 03:05 RBC 3.14 M/mm3 (3.65-5.03) L 04/05/18 03:05 Hgb 9.8 gm/dl (10.1-14.3) L 04/05/18 03:05 Hct 30.0 % (30.3-42.9) L 04/05/18 03:05 MCV 95 fl (79-97) 04/05/18 03:05 MCH 31 pg (28-32) 04/05/18 03:05 MCHC 33 % (30-34) 04/05/18 03:05 RDW 17.7 % (13.2-15.2) H 04/05/18 03:05 Plt Count 81 K/mm3 (140-440) L 04/05/18 03:05 Lymph % (Auto) 8.4 % (13.4-35.0) L 04/05/18 03:05 [place] % (Auto) 7.2 % (0.0-7.3) 04/05/18 03:05 Eos % (Auto) 3.1 % (0.0-4.3) 04/05/18 03:05 Baso % (Auto) 1.0 % (0.0-1.8) 04/05/18 03:05 Lymph # 0.7 K/mm3 (1.2-5.4) L 04/05/18 03:05 Kane # 0.6 K/mm3 (0.0-0.8) 04/05/18 03:05 Eos # 0.2 K/mm3 (0.0-0.4) 04/05/18 03:05 Baso # 0.1 K/mm3 (0.0-0.1) 04/05/18 03:05 Add Manual Diff Complete 04/04/18 05:14 Total Counted 100 04/04/18 05:14 Seg Neutrophils % 80.3 % (40.0-70.0) H 04/05/18 03:05 Seg Neuts % (Manual) 81.0 % (40.0-70.0) H 04/04/18 05:14 Band Neutrophils % 9.0 % 04/04/18 05:14 Lymphocytes % (Manual) 6.0 % (13.4-35.0) L 04/04/18 05:14 Reactive Lymphs % (Man) 0 % 04/04/18 05:14 Monocytes % (Manual) 2.0 % (0.0-7.3) 04/04/18 05:14 Eosinophils % (Manual) 1.0 % (0.0-4.3) 04/04/18 05:14 Basophils % (Manual) 1.0 % (0.0-1.8) 04/04/18 05:14 Metamyelocytes % 0 % 04/04/18 05:14 Myelocytes % 0 % 04/04/18 05:14 Promyelocytes % 0 % 04/04/18 05:14 Blast Cells % 0 % 04/04/18 05:14 Nucleated RBC % Not Reportable 04/04/18 05:14 Seg Neutrophils # 6.5 K/mm3 (1.8-7.7) 04/05/18 03:05 Seg Neutrophils # Man 6.1 K/mm3 (1.8-7.7) 04/04/18 05:14 Band Neutrophils # 0.7 K/mm3 04/04/18 05:14 Lymphocytes # (Manual) 0.5 K/mm3 (1.2-5.4) L 04/04/18 05:14 Abs React Lymphs (Man) 0.0 K/mm3 04/04/18 05:14 Monocytes # (Manual) 0.2 K/mm3 (0.0-0.8) 04/04/18 05:14 Eosinophils # (Manual) 0.1 K/mm3 (0.0-0.4) 04/04/18 05:14 Basophils # (Manual) 0.1 K/mm3 (0.0-0.1) 04/04/18 05:14 Metamyelocytes # 0.0 K/mm3 04/04/18 05:14 Myelocytes # 0.0 K/mm3 04/04/18 05:14 Promyelocytes # 0.0 K/mm3 04/04/18 05:14 Blast Cells # 0.0 K/mm3 04/04/18 05:14 WBC Morphology Not Reportable 04/04/18 05:14 Hypersegmented Neuts Not Reportable 04/04/18 05:14 Hyposegmented Neuts Not Reportable 04/04/18 05:14 Hypogranular Neuts Not Reportable 04/04/18 05:14 Smudge Cells Not Reportable 04/04/18 05:14 Toxic Granulation Not Reportable 04/04/18 05:14 Toxic Vacuolation Not Reportable 04/04/18 05:14 Dohle Bodies Not Reportable 04/04/18 05:14 Pelger-Huet Anomaly Not Reportable 04/04/18 05:14 Ramone Rods Not Reportable 04/04/18 05:14 Platelet Estimate Appears normal 04/04/18 05:14 Clumped Platelets Not Reportable 04/04/18 05:14 Plt Clumps, EDTA Not Reportable 04/04/18 05:14 Large Platelets Few 04/04/18 05:14 Giant Platelets Not Reportable 04/04/18 05:14 Platelet Satelliting Not Reportable 04/04/18 05:14 Plt Morphology Comment Not Reportable 04/04/18 05:14 RBC Morphology Not Reportable 04/04/18 05:14 Dimorphic RBCs Not Reportable 04/04/18 05:14 Polychromasia Not Reportable 04/04/18 05:14 Hypochromasia Not Reportable 04/04/18 05:14 Poikilocytosis 1+ 04/04/18 05:14 Anisocytosis 1+ 04/04/18 05:14 Microcytosis Not Reportable 04/04/18 05:14 Macrocytosis Not Reportable 04/04/18 05:14 Spherocytes Not Reportable 04/04/18 05:14 Pappenheimer Bodies Not Reportable 04/04/18 05:14 Sickle Cells Not Reportable 04/04/18 05:14 Target Cells Not Reportable 04/04/18 05:14 Tear Drop Cells 1+ 04/04/18 05:14 Ovalocytes 1+ 04/04/18 05:14 Helmet Cells Not Reportable 04/04/18 05:14 [place] Bodies Not Reportable 04/04/18 05:14 [place] Rings Not Reportable 04/04/18 05:14 [place] Cells Not Reportable 04/04/18 05:14 Bite Cells Not Reportable 04/04/18 05:14 Crenated Cell Not Reportable 04/04/18 05:14 Elliptocytes 1+ 04/04/18 05:14 Acanthocytes (Spur) Not Reportable 04/04/18 05:14 Rouleaux Not Reportable 04/04/18 05:14 Hemoglobin C Crystals Not Reportable 04/04/18 05:14 Schistocytes Not Reportable 04/04/18 05:14 Malaria parasites Not Reportable 04/04/18 05:14 [place] Bodies Not Reportable 04/04/18 05:14 Hem Pathologist Commnt No 04/04/18 05:14 PT 15.9 Sec. (12.2-14.9) H 04/05/18 13:47 INR 1.19 (0.87-1.13) H 04/05/18 13:47 APTT 33.6 Sec. (24.2-36.6) 04/04/18 09:14 Sodium 139 mmol/L (137-145) 04/05/18 05:39 Potassium 3.7 mmol/L (3.6-5.0) 04/05/18 05:39 Chloride 98.7 mmol/L (98-107) 04/05/18 05:39 Carbon Dioxide 25 mmol/L (22-30) 04/05/18 05:39 Anion Gap 19 mmol/L 04/05/18 05:39 BUN 32 mg/dL (7-17) H 04/05/18 05:39 Creatinine 7.0 mg/dL (0.7-1.2) H 04/05/18 05:39 Estimated GFR 8 ml/min 04/05/18 05:39 BUN/Creatinine Ratio 5 % 04/05/18 05:39 Glucose 132 mg/dL (65-100) H 04/05/18 05:39 POC Glucose 141 (70-105) H 04/05/18 16:04 Lactic Acid 1.90 mmol/L (0.7-2.0) 04/03/18 00:06 Calcium 8.3 mg/dL (8.4-10.2) L 04/05/18 05:39 Total Bilirubin 1.00 mg/dL (0.1-1.2) 04/03/18 15:22 AST 80 units/L (5-40) H 04/03/18 15:22 ALT 46 units/L (7-56) 04/03/18 15:22 Alkaline Phosphatase 123 units/L (35-129) 04/03/18 15:22 Ammonia 30.0 umol/L (25-60) 04/03/18 15:22 Total Creatine Kinase 7715 units/L (30-135) H 03/31/18 07:20 C-Reactive Protein 36.50 mg/dL (0.00-1.30) H 04/03/18 17:25 Total Protein 7.5 g/dL (6.3-8.2) 04/03/18 15:22 Albumin 3.2 g/dL (3.9-5) L 04/03/18 15:22 Albumin/Globulin Ratio 0.7 % 04/03/18 15:22 Blood Type O POSITIVE 04/01/18 14:52 Antibody Screen Negative 04/01/18 14:52
[2018-04-06] MEDS: APRESOLINE PO SCH ×4 (06:13→19:26)
[2018-04-06 07:28] LABS: INR 1.17 (0.87-1.13)
[2018-04-06] MEDS ORDERED: XYLOCAINE 1% 20 mL ONE (08:17)
--- NOTE | 2018-04-06 09:56 | Fluoroscopy Report ---
FLUORO GUIDED LUMBAR PUNCTURE INDICATION: Evaluate for meningitis. COMPARISON: None similar. IMAGES/CINE CLIPS: 1 FINDINGS: After obtaining risks and benefits to patient, written informed consent obtained. Patient positioned prone on the fluoroscopy table. An appropriate skin site marked using fluoro guidance. IUD incidentally noted within the pelvis. Patient prepped and draped in the usual sterile fashion. 1% lidocaine used for local anesthesia. A 22-gauge long spinal needle advanced into the thecal sac at L4-L5 with clear CSF obtained. Total of approximately 12 cc CSF retrieved and sent to the lab in 4 separate test tubes. Patient tolerated the procedure well and left the department in stable condition. CONCLUSION: Status post lumbar puncture, as described. Dr. Magana present for and performed the entire procedure. Thank you for the opportunity to participate in this patient's care.
[2018-04-06 10:21] LABS: Glucose,CSF 67 mg/dL
--- NOTE | 2018-04-06 11:06 | Progress Note ---
Assessment and Plan Cultures: Blood culture 04/01/2018 no growth MRSA screening negative Blood culture 04/04/2018 no growth Assessment: 42 y/o female with history of hypertension, left BKA 2007 due to foot infection and ESRD on HD; admitted on 03/31/2018 due to right hip pain then developed fever and AMS: 1) Sepsis: fever resolved; NOT Present on admission, manifested by fever on 04/01/2018, tachycardia. Etiology unclear. DDx: influenza, meningitis, pneumonia, endocarditis (pt has a murmur and AICD in place). - Blood culture 04/01/2018 no growth - Blood culture 04/04/2018 no growth - CXR no consolidations. - MRSA screening negative. - TTE no vegetation 2) Recent fall: Patient fell to the right hip has been having aching pain in the right hip and right thigh since. Patient states that the pain is so bad she is having difficulty moving or walking. Patient had another fall the day before admission and was on the ground lying on her right side for approximately 3+ hours. XR femur neg. XR hip neg. 3) Allergy to vancomcyin, linezolid and levaquin 4) AMS: from sepsis +/- meningitis Recommendations: - obtain lumbar puncture send CSF for Gram, cultures, cell count, diff, VDRL, Cryptococcus Ag, HSV PCR - pending due to coagulopathy - Influenza rapid antigen and PCR NIKI - pending - Continue tamiflu renally adjusted D2 - Continue ceftriaxone 2 gm IV q12h D2 - she did not receive acyclovir - if CSF is negative will stop ceftriaxone Will follow. Malu Camacho MD Infectious Diseases [employer] Under[employer] [facility] M [phone] O [phone] Subjective Date of service: 04/06/18 Principal diagnosis: SIRS Interval history: Feels better, alert, however no fever for 24h Review of Systems: General:no fever, chills Cutaneous: no rash, pruritus Respiratory: no cough, chest pain, SOB Gastrointestinal: no nausea, vomiting, + diarrhea \ Objective - Exam Narrative Exam: General appearance: Alert in NAD, talking Eyes: anicteric sclerae, moist conjunctivae; no lid-lag; PERRLA HENT: Atraumatic; oropharynx clear Neck: Trachea midline; supple, no thyromegaly or lymphadenopathy Lungs:CTA CV: RRR, + murmurs Abdomen: Soft, TTP Extremities: left BKA stump clear, eileen thigh edema Skin: Normal temperature, turgor and texture; no rash, ulcers or subcutaneous nodules Psych: Appropriate affect, alert and oriented to person, place and time. Neuro: alert and oriented x 3. Moving all extermities - Constitutional Vitals: Vital Signs Temp Pulse Resp BP Pulse Ox 98.4 F 79 13 114/45 96 04/06/18 08:00 04/06/18 08:20 04/06/18 08:20 04/06/18 08:20 04/06/18 08:20 Temperature -Last 24 Hours Temperature 98.4 F Temperature 99.4 F Temperature 9805 F Temperature 98.5 F Temperature 98.5 F Temperature 97.6 F Temperature 97.4 F Temperature 98 F - Labs CBC & Chem 7: 04/05/18 03:05 04/05/18 05:39 Labs: Abnormal lab results 04/05/18 04/05/18 04/05/18 Range/Units 13:47 16:04 20:33 PT 15.9 H (12.2-14.9) Sec. INR 1.19 H (0.87-1.13) POC Glucose 141 H 172 H (70-105) 04/06/18 Range/Units 07:02 PT 15.6 H (12.2-14.9) Sec. INR 1.17 H (0.87-1.13) POC Glucose (70-105)
[2018-04-06 11:22] LABS: Appearance,CSF Clear; Red Blood Cell,CSF 75 /mm3 (0-0); White Blood Cell,CSF 10 /mm3 (1-10)
[2018-04-06 11:25] LABS: Basophils CSF 0 %; Total Cells Counted 10 /mm3
[2018-04-06] MEDS: LOPRESSOR PO SCH (11:29)
[2018-04-06] MEDS: PERCOCET 5/325 PO PRN ×2 (11:30→21:35)
--- NOTE | 2018-04-06 11:42 | Procedure Note ---
Date of procedure: 04/06/18 Pre-op diagnosis: Sepsis Post-op diagnosis: same Procedure: FL guided LP. Findings: 12 cc clear CSF obtained. Anesthesia: local Surgeon: BALDEV HODGE Estimated blood loss: none Specimen disposition: to lab Condition: stable Disposition: floor (Flat in [id number] post proc. Then limit activity upto 24 hrs.)
[2018-04-06] MEDS: RENVELA PO SCH ×3 (12:22→19:23)
[2018-04-06] MEDS: FEOSOL PO SCH ×3 (14:00→21:35)
--- NOTE | 2018-04-06 15:01 | Progress Note ---
Assessment and Plan Assessment and plan: Altered mental status, metabolic encephalopathy - CT head was normal, ammonia level is within normal limit - Altered mental status resolved SIRS. Pt had fever. Blood cultures negative so far, lactic acid level was normal. Empiric ceftriaxone, Tamiflu and acyclovir. ID was consulted. patient had LP this morning and no meningitis. DC roecephin and will continue with tamiflu for a total of 5 days Right hip pain; x-rays negative. cause unknown. PT eval. ESRD; Continue Monday, and Monday hemodialysis schedule per nephrology. Nephrology consulted Nonischemic cardiomyopathy. Echo done 03/2017 showed EF 35%, atrial septal aneurysm present, patent PFO, LA and RA severely dilated, mild MR, mod TR, mild AR, restrictive diastolic filling, RV mod dilated, mod pulm HTN. Chronic systolic heart failure. Compensated. Continue hemodialysis for negative fluid balance. AICD. Pulmonary hypertension. Continue supportive care. PFO/atrial septal aneurysm. Hypertension. Continue antihypertensive medications. Peripheral neuropathy. Continue gabapentin. Left BKA. DVT prophylaxis. Lovenox. Disposition; Possible DC in AM if stable overnight. History Interval history: Patient was seen and evaluated this morning, patient was alert and oriented. No headache or chest pain. Hospitalist Physical - Physical exam Narrative exam: Not in cardiopulmonary distress. The patient appeared well nourished and normally developed. Vital signs as documented. Head exam is unremarkable. No scleral icterus . Neck is without jugular venous distension, thyromegaly, or carotid bruits. Lungs are clear to auscultation. Cardiac exam reveals regular rate and Rhythm. First and second heart sounds normal. No murmurs, rubs or gallops. Abdominal exam reveals normal bowel sounds, no masses, no organomegaly and no aortic enlargement. Extremities left BKA. [employer]: Alert and oriented. No meningeal signs. - Constitutional Vitals: Temp Pulse Resp BP Pulse Ox 98.4 F 79 13 114/45 96 04/06/18 08:00 04/06/18 08:20 04/06/18 08:20 04/06/18 08:20 04/06/18 08:20 General appearance: Present: no acute distress, well-nourished Results - Labs CBC & Chem 7: 04/05/18 03:05 04/05/18 05:39 Labs: Laboratory Last Values WBC 8.1 K/mm3 (4.5-11.0) 04/05/18 03:05 RBC 3.14 M/mm3 (3.65-5.03) L 04/05/18 03:05 Hgb 9.8 gm/dl (10.1-14.3) L 04/05/18 03:05 Hct 30.0 % (30.3-42.9) L 04/05/18 03:05 MCV 95 fl (79-97) 04/05/18 03:05 MCH 31 pg (28-32) 04/05/18 03:05 MCHC 33 % (30-34) 04/05/18 03:05 RDW 17.7 % (13.2-15.2) H 04/05/18 03:05 Plt Count 81 K/mm3 (140-440) L 04/05/18 03:05 Lymph % (Auto) 8.4 % (13.4-35.0) L 04/05/18 03:05 [place] % (Auto) 7.2 % (0.0-7.3) 04/05/18 03:05 Eos % (Auto) 3.1 % (0.0-4.3) 04/05/18 03:05 Baso % (Auto) 1.0 % (0.0-1.8) 04/05/18 03:05 Lymph # 0.7 K/mm3 (1.2-5.4) L 04/05/18 03:05 [place] # 0.6 K/mm3 (0.0-0.8) 04/05/18 03:05 Eos # 0.2 K/mm3 (0.0-0.4) 04/05/18 03:05 Baso # 0.1 K/mm3 (0.0-0.1) 04/05/18 03:05 Add Manual Diff Complete 04/04/18 05:14 Total Counted 100 04/04/18 05:14 Seg Neutrophils % 80.3 % (40.0-70.0) H 04/05/18 03:05 Seg Neuts % (Manual) 81.0 % (40.0-70.0) H 04/04/18 05:14 Band Neutrophils % 9.0 % 04/04/18 05:14 Lymphocytes % (Manual) 6.0 % (13.4-35.0) L 04/04/18 05:14 Reactive Lymphs % (Man) 0 % 04/04/18 05:14 Monocytes % (Manual) 2.0 % (0.0-7.3) 04/04/18 05:14 Eosinophils % (Manual) 1.0 % (0.0-4.3) 04/04/18 05:14 Basophils % (Manual) 1.0 % (0.0-1.8) 04/04/18 05:14 Metamyelocytes % 0 % 04/04/18 05:14 Myelocytes % 0 % 04/04/18 05:14 Promyelocytes % 0 % 04/04/18 05:14 Blast Cells % 0 % 04/04/18 05:14 Nucleated RBC % Not Reportable 04/04/18 05:14 Seg Neutrophils # 6.5 K/mm3 (1.8-7.7) 04/05/18 03:05 Seg Neutrophils # Man 6.1 K/mm3 (1.8-7.7) 04/04/18 05:14 Band Neutrophils # 0.7 K/mm3 04/04/18 05:14 Lymphocytes # (Manual) 0.5 K/mm3 (1.2-5.4) L 04/04/18 05:14 Abs React Lymphs (Man) 0.0 K/mm3 04/04/18 05:14 Monocytes # (Manual) 0.2 K/mm3 (0.0-0.8) 04/04/18 05:14 Eosinophils # (Manual) 0.1 K/mm3 (0.0-0.4) 04/04/18 05:14 Basophils # (Manual) 0.1 K/mm3 (0.0-0.1) 04/04/18 05:14 Metamyelocytes # 0.0 K/mm3 04/04/18 05:14 Myelocytes # 0.0 K/mm3 04/04/18 05:14 Promyelocytes # 0.0 K/mm3 04/04/18 05:14 Blast Cells # 0.0 K/mm3 04/04/18 05:14 WBC Morphology Not Reportable 04/04/18 05:14 Hypersegmented Neuts Not Reportable 04/04/18 05:14 Hyposegmented Neuts Not Reportable 04/04/18 05:14 Hypogranular Neuts Not Reportable 04/04/18 05:14 Smudge Cells Not Reportable 04/04/18 05:14 Toxic Granulation Not Reportable 04/04/18 05:14 Toxic Vacuolation Not Reportable 04/04/18 05:14 Dohle Bodies Not Reportable 04/04/18 05:14 Pelger-Huet Anomaly Not Reportable 04/04/18 05:14 Ramone Rods Not Reportable 04/04/18 05:14 Platelet Estimate Appears normal 04/04/18 05:14 Clumped Platelets Not Reportable 04/04/18 05:14 Plt Clumps, EDTA Not Reportable 04/04/18 05:14 Large Platelets Few 04/04/18 05:14 Giant Platelets Not Reportable 04/04/18 05:14 Platelet Satelliting Not Reportable 04/04/18 05:14 Plt Morphology Comment Not Reportable 04/04/18 05:14 RBC Morphology Not Reportable 04/04/18 05:14 Dimorphic RBCs Not Reportable 04/04/18 05:14 Polychromasia Not Reportable 04/04/18 05:14 Hypochromasia Not Reportable 04/04/18 05:14 Poikilocytosis 1+ 04/04/18 05:14 Anisocytosis 1+ 04/04/18 05:14 Microcytosis Not Reportable 04/04/18 05:14 Macrocytosis Not Reportable 04/04/18 05:14 Spherocytes Not Reportable 04/04/18 05:14 Pappenheimer Bodies Not Reportable 04/04/18 05:14 Sickle Cells Not Reportable 04/04/18 05:14 Target Cells Not Reportable 04/04/18 05:14 Tear Drop Cells 1+ 04/04/18 05:14 Ovalocytes 1+ 04/04/18 05:14 Helmet Cells Not Reportable 04/04/18 05:14 [place] Bodies Not Reportable 04/04/18 05:14 [place] Rings Not Reportable 04/04/18 05:14 [place] Cells Not Reportable 04/04/18 05:14 Bite Cells Not Reportable 04/04/18 05:14 Crenated Cell Not Reportable 04/04/18 05:14 Elliptocytes 1+ 04/04/18 05:14 Acanthocytes (Spur) Not Reportable 04/04/18 05:14 Rouleaux Not Reportable 04/04/18 05:14 Hemoglobin C Crystals Not Reportable 04/04/18 05:14 Schistocytes Not Reportable 04/04/18 05:14 Malaria parasites Not Reportable 04/04/18 05:14 [place] Bodies Not Reportable 04/04/18 05:14 Hem Pathologist Commnt No 04/04/18 05:14 PT 15.6 Sec. (12.2-14.9) H 04/06/18 07:02 INR 1.17 (0.87-1.13) H 04/06/18 07:02 APTT 33.6 Sec. (24.2-36.6) 04/04/18 09:14 Sodium 139 mmol/L (137-145) 04/05/18 05:39 Potassium 3.7 mmol/L (3.6-5.0) 04/05/18 05:39 Chloride 98.7 mmol/L (98-107) 04/05/18 05:39 Carbon Dioxide 25 mmol/L (22-30) 04/05/18 05:39 Anion Gap 19 mmol/L 04/05/18 05:39 BUN 32 mg/dL (7-17) H 04/05/18 05:39 Creatinine 7.0 mg/dL (0.7-1.2) H 04/05/18 05:39 Estimated GFR 8 ml/min 04/05/18 05:39 BUN/Creatinine Ratio 5 % 04/05/18 05:39 Glucose 132 mg/dL (65-100) H 04/05/18 05:39 POC Glucose 172 (70-105) H 04/05/18 20:33 Lactic Acid 1.90 mmol/L (0.7-2.0) 04/03/18 00:06 Calcium 8.3 mg/dL (8.4-10.2) L 04/05/18 05:39 Total Bilirubin 1.00 mg/dL (0.1-1.2) 04/03/18 15:22 AST 80 units/L (5-40) H 04/03/18 15:22 ALT 46 units/L (7-56) 04/03/18 15:22 Alkaline Phosphatase 123 units/L (35-129) 04/03/18 15:22 Ammonia 30.0 umol/L (25-60) 04/03/18 15:22 Total Creatine Kinase 7715 units/L (30-135) H 03/31/18 07:20 C-Reactive Protein 36.50 mg/dL (0.00-1.30) H 04/03/18 17:25 Total Protein 7.5 g/dL (6.3-8.2) 04/03/18 15:22 Albumin 3.2 g/dL (3.9-5) L 04/03/18 15:22 Albumin/Globulin Ratio 0.7 % 04/03/18 15:22 CSF Appearance Clear 04/06/18 Unknown CSF Color Colorless 04/06/18 Unknown CSF WBC 10 /mm3 (1-10) 04/06/18 Unknown CSF RBC 75 /mm3 (0-0) 04/06/18 Unknown CSF Seg Neutrophils 40.0 % (0-6) 04/06/18 Unknown CSF Lymphocytes % 50.0 % (40-80) 04/06/18 Unknown CSF Reactive Lymphs 0 % 04/06/18 Unknown CSF Monocytes % 10.0 % (15-45) 04/06/18 Unknown CSF Eosinophils % 0 % 04/06/18 Unknown CSF Basophils 0 % 04/06/18 Unknown CSF Pathologist Review C 04/06/18 Unknown CSF Glucose 67 mg/dL 04/06/18 Unknown CSF Total Protein 46 mg/dL 04/06/18 Unknown Influenza A (Rapid) Negative (Negative) 04/05/18 10:00 Influenza B (Rapid) Negative (Negative) 04/05/18 10:00 Blood Type O POSITIVE 04/01/18 14:52 Antibody Screen Negative 04/01/18 14:52 Nutrition/Malnutrition Assess - Dietary Evaluation Nutrition/Malnutrition Findings: Nutrition Notes Start: 04/06/18 14:47 Freq: Status: Active Protocol: Document 04/06/18 14:47 RM (Rec: 04/06/18 14:55 RM [id number]) Nutrition Notes Need for Assessment generated from: LOS Initial or Follow up Assessment Current Diagnosis Hypertension Heart Failure Other Pertinent Diagnosis ESRD on HD (//Mon), L BKA Current Diet Renal Labs/Tests Reviewed Pertinent Medications Reviewed Height 5 ft 9 in Weight 84.4 kg Usual Body Weight 87.5 kg [place] Body Weight (kg) 65.90 BMI 27.4 Subjective/Other Information Screened for LOS. Pt stated that her appetite is improving and that she eats 1 /3 of her meals. Stated she is getting tired of eating the same meals. Gave numbers to contact kitchen staff to discuess options. Admitted to painful chewing d/t broken teeth. Stated dry wt is 87.5 kg. Burn Absent Trauma Absent Nutrition Diagnosis Inadequate oral intake Etiology decreased appetite, broken teeth As Evidenced by Signs and Symptoms pt statement that she eats 1/3 of her meals Is patient on ventilator? No Is Patient Ambulatory and/or Out of Bed No REE-([place] Je[facility]-confined to bed) 3050.573 Calculation [facility] Additional Notes Protein Needs: 101-110g (1.2-1 .3g/kg) Fluid Needs: 1 ml/kcal Nutrition Intervention Change Diet Order: Continue current
--- NOTE | 2018-04-06 17:44 | Progress Note ---
Assessment and Plan - Patient Problems (1) End stage renal disease on dialysis Current Visit: Yes Status: Chronic Plan to address problem: Hemodialysis in the morning. Okay to discharge after dialysis from renal standpoint (2) Altered mental status Current Visit: Yes Status: Acute Plan to address problem: Toxic encephalopathy. Improved. Follow-up CSF fluid culture (3) Fever Current Visit: No Status: Acute Qualifiers: Fever type: unspecified Qualified Code(s): R50.9 - Fever, unspecified Plan to address problem: Probably viral syndrome. Rule out meningitis. Follow up CSF results (4) Hypertensive chronic kidney disease with stage 5 chronic kidney disease or end stage renal disease Current Visit: No Status: Acute Plan to address problem: Follow-up blood pressure on current medications (5) Type 2 diabetes mellitus with diabetic chronic kidney disease Current Visit: No Status: Acute Plan to address problem: Blood sugar management by primary attending (6) Anemia in chronic kidney disease, on chronic dialysis Current Visit: No Status: Chronic Plan to address problem: Given Erythropoetin on dialysis (7) Peripheral neuropathy Current Visit: No Status: Chronic Qualifiers: Peripheral neuropathy type: polyneuropathy, unspecified Qualified Code(s): G62.9 - Polyneuropathy, unspecified Plan to address problem: Lower dose of gabapentin at bedtime only Subjective Date of service: 04/06/18 Principal diagnosis: SIRS, acute kidney injury Interval history: Patient seen lying in bed this morning. She was going for a CAT scan of the abdomen and pelvis. Seen again this evening. Feels much better. Believes she became altered because she was taking Percocet and gabapentin at the same time. Objective - Exam Narrative Exam: Middle aged gentleman, comfortably lying in bed in no acute distress HEENT: NCAT, pink oral mucous membrane Neck: Supple, no venous distention CVS: S1S2 RRR with no murmur, rub or gallop Chest: Clear to auscultation Abdomen: Protuberant, soft, nontender, no organomegaly, bowel sounds are present Extremities: mild edema Neuro: Awake, alert no focal deficits - Vital Signs Vital signs: Vital Signs - 12hr 04/06/18 04/06/18 04/06/18 05:41 05:51 06:00 Temperature Pulse Rate 76 76 75 Respiratory 12 19 13 Rate Blood Pressure 98/48 105/45 102/54 O2 Sat by Pulse 97 97 95 Oximetry 04/06/18 04/06/18 04/06/18 06:11 06:13 06:21 Temperature Pulse Rate 75 75 76 Respiratory 13 12 Rate Blood Pressure 102/54 102/54 100/53 O2 Sat by Pulse 97 97 Oximetry 04/06/18 04/06/18 04/06/18 06:30 06:41 06:51 Temperature Pulse Rate 75 75 74 Respiratory 12 12 11 L Rate Blood Pressure 104/61 104/61 94/44 O2 Sat by Pulse 95 94 94 Oximetry 04/06/18 04/06/18 04/06/18 07:00 07:11 07:21 Temperature Pulse Rate 74 78 77 Respiratory 10 L 12 13 Rate Blood Pressure 83/38 83/38 100/49 O2 Sat by Pulse 95 96 94 Oximetry 04/06/18 04/06/18 04/06/18 07:30 07:41 07:51 Temperature Pulse Rate 77 77 78 Respiratory 15 11 L 11 L Rate Blood Pressure 100/44 83/38 98/44 O2 Sat by Pulse 92 94 97 Oximetry 04/06/18 04/06/18 04/06/18 08:00 08:11 08:20 Temperature 98.4 F Pulse Rate 78 78 79 Respiratory 17 15 13 Rate Blood Pressure 99/41 99/41 114/45 O2 Sat by Pulse 94 93 96 Oximetry 04/06/18 16:00 Temperature 98.5 F Pulse Rate Respiratory Rate Blood Pressure O2 Sat by Pulse Oximetry - Lab 04/05/18 03:05 04/05/18 05:39 Most recent lab results Calcium 8.3 mg/dL (8.4-10.2) L 04/05/18 05:39 Medications & Allergies - Medications Allergies/Adverse Reactions: Allergies iodine Allergy (Verified 05/12/17 12:49) Swelling levofloxacin [From Levaquin] Allergy (Verified 05/12/17 12:49) Swelling linezolid [From Zyvox] Allergy (Verified 05/12/17 12:49) Hives morphine Allergy (Verified 05/12/17 12:49) Swelling Sulfa (Sulfonamide Antibiotics) Allergy (Verified 05/12/17 12:49) Swelling vancomycin Allergy (Verified 05/12/17 12:49) Swelling Home Medications: Home Medications Medication Instructions Recorded Confirmed Last Taken Type Gabapentin 400 mg PO QHS 09/12/16 03/31/18 09/11/16 History Lisinopril 40 mg PO QHS 09/12/16 03/31/18 09/11/16 History Renvela 800 mg PO TID 09/12/16 03/31/18 09/10/16 History Dulcolax tab 4 mg PO DAILY #30 10/20/16 03/31/18 Unknown Rx Ferrous Sulfate [Feosol 325 MG tab] 325 mg PO TID #30 tablet 10/20/16 03/31/18 Unknown Rx ALPRAZolam [Xanax] 1 mg PO QDAY PRN 08/12/17 03/31/18 Unknown History B Complex 11/Folic/C/Biot/Zinc 1 each PO QDAY 08/12/17 03/31/18 Unknown History [Dialyvite with Zinc Tablet] HYDROcodone/APAP 10-325 [[place] 1 each PO Q8HR PRN 08/12/17 03/31/18 Unknown History 10-325 mg TAB] Hydralazine HCl 50 mg PO Q8H 08/12/17 03/31/18 Unknown History Metoprolol Tartrate 50 mg PO QAM 08/12/17 03/31/18 Unknown History Propranolol HCl 80 mg PO BID 08/12/17 03/31/18 Unknown History Active Medications: Generic Name Dose Route Start Last Admin Trade Name Freq PRN Reason Stop Dose Admin Acetaminophen 650 mg 03/31/18 10:50 04/04/18 23:25 Tylenol PO 650 mg Q4H PRN Administration Pain MILD(1-3)/Fever >100.5/JENKINS Alprazolam 1 mg 03/31/18 15:28 Xanax PO QDAY PRN Anxiety Diphenhydramine HCl 25 mg 03/31/18 12:20 04/01/18 12:39 Benadryl PO 25 mg Q6H PRN Administration Itching Ferrous Sulfate 325 mg 03/31/18 15:00 04/05/18 23:14 Feosol PO 325 mg TID DANIELLE Administration Gabapentin 100 mg 04/04/18 22:00 04/05/18 23:14 Neurontin PO 100 mg QHS DANIELLE Administration Heparin Sodium (Porcine) 1,000 unit 03/31/18 11:26 04/03/18 10:14 Heparin 10,000 Units/10 Ml IV 1,000 unit SONIDO PRN Administration hemodialysis Hydralazine HCl 50 mg 03/31/18 22:00 04/06/18 06:13 Apresoline PO Not Given Q8HR DANIELLE Sodium Chloride 100 mls @ 999 mls/hr 04/05/18 07:21 Nacl 0.9% IV SONIDO PRN Hypotension Lisinopril 40 mg 03/31/18 22:00 04/05/18 23:16 Zestril PO Not Given QHS DANIELLE Metoprolol Tartrate 50 mg 04/01/18 10:00 04/06/18 11:29 Lopressor PO 50 mg QAM DANIELLE Administration Multivit/Ca Carb/B Cmplx/FA/Prenat 1 cap 04/01/18 10:00 04/05/18 10:10 Renal Caps PO 1 cap QDAY DANIELLE Administration Ondansetron HCl 4 mg 03/31/18 10:50 Zofran IV Q8H PRN Nausea And Vomiting Oseltamivir Phosphate 30 mg 04/04/18 12:00 04/05/18 10:11 Tamiflu PO 04/07/18 10:01 30 mg DAILY DANIELLE Administration Oxycodone/Acetaminophen 1 tab 03/31/18 12:21 04/06/18 11:30 Percocet 5/325 PO 1 tab Q6H PRN Administration Pain, Moderate (4-6) Propranolol HCl 80 mg 03/31/18 22:00 04/05/18 23:10 Inderal PO Not Given BID DANIELLE Sevelamer Carbonate 800 mg 03/31/18 17:30 04/05/18 16:32 Renvela PO 800 mg AC DANIELLE Administration Sodium Chloride 10 ml 03/31/18 22:00 04/05/18 23:15 Sodium Chloride Flush Syringe 10 Ml IV 10 ml BID DANIELLE Administration Sodium Chloride 10 ml 03/31/18 10:50 Sodium Chloride Flush Syringe 10 Ml IV PRN PRN LINE FLUSH
[2018-04-06] MEDS: SODIUM CHLORIDE FLUSH SYRINGE 10 ML IV SCH (19:23)
[2018-04-06] MEDS: TAMIFLU PO SCH (19:24)
[2018-04-06] MEDS: INDERAL PO SCH (19:24)
[2018-04-06] MEDS: Renal Caps PO SCH (19:24)
[2018-04-06] MEDS: NEURONTIN PO SCH (21:35)
[2018-04-07] MEDS: APRESOLINE PO SCH ×2 (03:55→07:28)
[2018-04-07] MEDS: INDERAL PO SCH ×3 (03:55→13:05)
[2018-04-07] MEDS: ZESTRIL PO SCH (03:56)
[2018-04-07] MEDS: PERCOCET 5/325 PO PRN (05:35)
[2018-04-07] MEDS: SODIUM CHLORIDE FLUSH SYRINGE 10 ML IV SCH ×2 (05:36→13:05)
[2018-04-07] MEDS: FEOSOL PO SCH (13:02)
[2018-04-07] MEDS: RENVELA PO SCH ×2 (13:02→13:07)
--- NOTE | 2018-04-07 13:02 | Progress Note ---
Assessment and Plan - Patient Problems (1) End stage renal disease on dialysis Current Visit: Yes Status: Chronic Plan to address problem: HD this AM. Okay to discharge after dialysis from renal standpoint (2) Altered mental status Current Visit: Yes Status: Acute Plan to address problem: Toxic encephalopathy. Improved. Follow-up CSF fluid culture (3) Fever Current Visit: No Status: Acute Qualifiers: Fever type: unspecified Qualified Code(s): R50.9 - Fever, unspecified Plan to address problem: Probably viral syndrome. Rule out meningitis. Follow up CSF results (4) Type 2 diabetes mellitus with diabetic chronic kidney disease Current Visit: No Status: Acute Plan to address problem: Blood sugar management by primary attending (5) HTN (hypertension) Current Visit: No Status: Chronic Qualifiers: Hypertension type: renovascular hypertension Qualified Code(s): I15.0 - Renovascular hypertension Plan to address problem: Follow-up blood pressure on current medications (6) Peripheral neuropathy Current Visit: No Status: Chronic Qualifiers: Peripheral neuropathy type: polyneuropathy, unspecified Qualified Code(s): G62.9 - Polyneuropathy, unspecified Plan to address problem: Lower dose of gabapentin at bedtime only (7) Anemia in chronic kidney disease, on chronic dialysis Current Visit: No Status: Chronic Plan to address problem: Given Erythropoetin on dialysis Subjective Date of service: 04/07/18 Principal diagnosis: SIRS, acute kidney injury Interval history: Pt awake, alert, in NAD Objective - Vital Signs Vital signs: Vital Signs - 12hr 04/07/18 04/07/18 04/07/18 01:01 01:11 01:21 Temperature Pulse Rate 79 77 75 Pulse Rate [ Apical] Pulse Rate [ From Monitor] Respiratory 13 11 L 12 Rate Blood Pressure 91/48 91/48 91/48 O2 Sat by Pulse Oximetry 04/07/18 04/07/18 04/07/18 01:30 01:41 01:51 Temperature Pulse Rate 75 77 74 Pulse Rate [ Apical] Pulse Rate [ From Monitor] Respiratory 15 12 12 Rate Blood Pressure 86/44 86/44 86/44 O2 Sat by Pulse Oximetry 04/07/18 04/07/18 04/07/18 02:01 02:10 02:20 Temperature Pulse Rate 74 74 74 Pulse Rate [ Apical] Pulse Rate [ From Monitor] Respiratory 10 L 11 L 11 L Rate Blood Pressure 86/44 86/44 86/44 O2 Sat by Pulse Oximetry 04/07/18 04/07/18 04/07/18 02:31 02:41 02:51 Temperature Pulse Rate 76 73 73 Pulse Rate [ Apical] Pulse Rate [ From Monitor] Respiratory 12 13 13 Rate Blood Pressure 110/60 86/44 86/44 O2 Sat by Pulse Oximetry 04/07/18 04/07/18 04/07/18 03:01 03:11 03:20 Temperature Pulse Rate 77 75 75 Pulse Rate [ Apical] Pulse Rate [ From Monitor] Respiratory 12 11 L 12 Rate Blood Pressure 118/70 118/70 86/44 O2 Sat by Pulse Oximetry 04/07/18 04/07/18 04/07/18 03:31 03:41 03:51 Temperature Pulse Rate 77 75 74 Pulse Rate [ Apical] Pulse Rate [ From Monitor] Respiratory 8 L 12 12 Rate Blood Pressure 118/70 118/70 118/70 O2 Sat by Pulse Oximetry 04/07/18 04/07/18 04/07/18 03:55 03:56 04:00 Temperature 98.4 F Pulse Rate 67 67 Pulse Rate [ 74 Apical] Pulse Rate [ 74 From Monitor] Respiratory 12 Rate Blood Pressure 95/53 95/67 O2 Sat by Pulse 97 Oximetry 04/07/18 04/07/18 04/07/18 04:01 04:11 04:21 Temperature Pulse Rate 74 74 74 Pulse Rate [ Apical] Pulse Rate [ From Monitor] Respiratory 12 11 L 15 Rate Blood Pressure 118/70 118/70 118/70 O2 Sat by Pulse Oximetry 04/07/18 04/07/18 04/07/18 04:30 04:41 04:51 Temperature Pulse Rate 75 76 75 Pulse Rate [ Apical] Pulse Rate [ From Monitor] Respiratory 11 L 11 L 11 L Rate Blood Pressure 119/67 119/67 119/67 O2 Sat by Pulse Oximetry 04/07/18 04/07/18 04/07/18 05:00 05:11 05:21 Temperature Pulse Rate 77 82 81 Pulse Rate [ Apical] Pulse Rate [ From Monitor] Respiratory 12 8 L 10 L Rate Blood Pressure 119/67 119/67 119/67 O2 Sat by Pulse Oximetry 04/07/18 04/07/18 04/07/18 05:31 05:41 05:51 Temperature Pulse Rate 80 82 82 Pulse Rate [ Apical] Pulse Rate [ From Monitor] Respiratory 12 15 16 Rate Blood Pressure 119/67 119/67 119/67 O2 Sat by Pulse Oximetry 04/07/18 04/07/18 04/07/18 06:00 06:11 06:21 Temperature Pulse Rate 83 82 82 Pulse Rate [ Apical] Pulse Rate [ From Monitor] Respiratory 14 12 12 Rate Blood Pressure 124/58 124/58 124/58 O2 Sat by Pulse Oximetry 04/07/18 04/07/18 04/07/18 06:31 06:41 06:51 Temperature Pulse Rate 81 76 76 Pulse Rate [ Apical] Pulse Rate [ From Monitor] Respiratory 15 12 11 L Rate Blood Pressure 124/58 124/58 124/58 O2 Sat by Pulse Oximetry 04/07/18 04/07/18 04/07/18 07:01 07:11 07:21 Temperature Pulse Rate 78 77 81 Pulse Rate [ Apical] Pulse Rate [ From Monitor] Respiratory 15 12 13 Rate Blood Pressure 124/58 124/58 124/58 O2 Sat by Pulse Oximetry 04/07/18 04/07/18 04/07/18 07:28 07:30 07:45 Temperature Pulse Rate 80 81 78 Pulse Rate [ Apical] Pulse Rate [ From Monitor] Respiratory 18 13 Rate Blood Pressure 124/68 95/49 95/49 O2 Sat by Pulse Oximetry 04/07/18 04/07/18 04/07/18 08:01 08:15 08:31 Temperature Pulse Rate 79 77 78 Pulse Rate [ Apical] Pulse Rate [ From Monitor] Respiratory 22 11 L 12 Rate Blood Pressure 95/49 95/49 95/49 O2 Sat by Pulse 96 97 Oximetry 04/07/18 04/07/18 04/07/18 08:45 08:55 09:00 Temperature 98.4 F Pulse Rate 77 77 78 Pulse Rate [ Apical] Pulse Rate [ From Monitor] Respiratory 13 13 13 Rate Blood Pressure 95/49 95/49 97/58 O2 Sat by Pulse 95 95 Oximetry 04/07/18 04/07/18 04/07/18 09:15 09:30 09:45 Temperature Pulse Rate 76 76 76 Pulse Rate [ Apical] Pulse Rate [ From Monitor] Respiratory 15 13 Rate Blood Pressure 122/64 113/59 118/63 O2 Sat by Pulse 96 96 Oximetry 04/07/18 04/07/18 04/07/18 10:00 10:15 10:30 Temperature Pulse Rate 77 80 77 Pulse Rate [ Apical] Pulse Rate [ From Monitor] Respiratory Rate Blood Pressure 118/56 112/55 110/52 O2 Sat by Pulse Oximetry 04/07/18 04/07/18 04/07/18 10:45 11:00 11:15 Temperature Pulse Rate 79 75 78 Pulse Rate [ Apical] Pulse Rate [ From Monitor] Respiratory Rate Blood Pressure 117/53 101/46 104/46 O2 Sat by Pulse Oximetry 04/07/18 04/07/18 04/07/18 11:30 11:45 12:00 Temperature Pulse Rate 80 84 81 Pulse Rate [ Apical] Pulse Rate [ From Monitor] Respiratory Rate Blood Pressure 105/50 105/50 115/59 O2 Sat by Pulse Oximetry 04/07/18 04/07/18 12:15 12:30 Temperature Pulse Rate 79 75 Pulse Rate [ Apical] Pulse Rate [ From Monitor] Respiratory Rate Blood Pressure 109/50 116/54 O2 Sat by Pulse Oximetry - General Appearance General appearance: well-developed, well-nourished, appears stated age EENT: ATNC, PERRL, mucous membranes moist Neck: no JVD Respiratory: Present: Clear to Ascultation Cardiology: regular, S1S2 Gastrointestinal: normoactive bowel sounds Integumentary: no rash, other (no edema ) Neurologic: no focal deficit, alert and oriented x3, strength 5/5, CN 3-12 intact Psychiatric: mood/affect appropriate, cooperative - Lab 04/05/18 03:05 04/05/18 05:39 Most recent lab results Calcium 8.3 mg/dL (8.4-10.2) L 04/05/18 05:39 Medications & Allergies - Medications Allergies/Adverse Reactions: Allergies iodine Allergy (Verified 05/12/17 12:49) Swelling levofloxacin [From Levaquin] Allergy (Verified 05/12/17 12:49) Swelling linezolid [From Zyvox] Allergy (Verified 05/12/17 12:49) Hives morphine Allergy (Verified 05/12/17 12:49) Swelling Sulfa (Sulfonamide Antibiotics) Allergy (Verified 05/12/17 12:49) Swelling vancomycin Allergy (Verified 05/12/17 12:49) Swelling Home Medications: Home Medications Medication Instructions Recorded Confirmed Last Taken Type Gabapentin 400 mg PO QHS 09/12/16 03/31/1809/11/17 History Lisinopril 40 mg PO QHS 09/12/16 03/31/18 09/11/16 History Renvela 800 mg PO TID 09/12/16 03/31/18 09/10/16 History Dulcolax tab 4 mg PO DAILY #30 10/20/16 03/31/18 Unknown Rx Ferrous Sulfate [Feosol 325 MG tab] 325 mg PO TID #30 tablet 10/20/16 03/31/18 Unknown Rx ALPRAZolam [Xanax] 1 mg PO QDAY PRN 08/12/17 03/31/18 Unknown History B Complex 11/Folic/C/Biot/Zinc 1 each PO QDAY 08/12/17 03/31/18 Unknown History [Dialyvite with Zinc Tablet] HYDROcodone/APAP 10-325 [[place] 1 each PO Q8HR PRN 08/12/17 03/31/18 Unknown History 10-325 mg TAB] Hydralazine HCl 50 mg PO Q8H 08/12/17 03/31/18 Unknown History Metoprolol Tartrate 50 mg PO QAM 08/12/17 03/31/18 Unknown History Propranolol HCl 80 mg PO BID 08/12/17 03/31/18 Unknown History Active Medications: Generic Name Dose Route Start Last Admin Trade Name Freq PRN Reason Stop Dose Admin Acetaminophen 650 mg 03/31/18 10:50 04/04/18 23:25 Tylenol PO 650 mg Q4H PRN Administration Pain MILD(1-3)/Fever >100.5/JENKINS Alprazolam 1 mg 03/31/18 15:28 Xanax PO QDAY PRN Anxiety Diphenhydramine HCl 25 mg 03/31/18 12:20 04/01/18 12:39 Benadryl PO 25 mg Q6H PRN Administration Itching Ferrous Sulfate 325 mg 03/31/18 15:00 04/06/18 21:35 Feosol PO 325 mg TID DANIELLE Administration Gabapentin 100 mg 04/04/18 22:00 04/06/18 21:35 Neurontin PO 100 mg QHS DANIELLE Administration Heparin Sodium (Porcine) 1,000 unit 03/31/18 11:26 04/03/18 10:14 Heparin 10,000 Units/10 Ml IV 1,000 unit SOINDO PRN Administration hemodialysis Hydralazine HCl 50 mg 03/31/18 22:00 04/07/18 07:28 Apresoline PO Not Given Q8HR DANIELLE Sodium Chloride 100 mls @ 999 mls/hr 04/05/18 07:21 Nacl 0.9% IV SONIDO PRN Hypotension Lisinopril 40 mg 03/31/18 22:00 04/07/18 03:56 Zestril PO Not Given QHS DANIELLE Metoprolol Tartrate 50 mg 04/01/18 10:00 04/06/18 11:29 Lopressor PO 50 mg QAM DANIELLE Administration Multivit/Ca Carb/B Cmplx/FA/Prenat 1 cap 04/01/18 10:00 04/06/18 19:24 Renal Caps PO Not Given QDAY DANIELLE Ondansetron HCl 4 mg 03/31/18 10:50 Zofran IV Q8H PRN Nausea And Vomiting Oxycodone/Acetaminophen 1 tab 03/31/18 12:21 04/07/18 05:35 Percocet 5/325 PO 1 tab Q6H PRN Administration Pain, Moderate (4-6) Propranolol HCl 80 mg 03/31/18 22:00 04/07/18 03:55 Inderal PO Not Given BID DANIELLE Sevelamer Carbonate 800 mg 03/31/18 17:30 04/06/18 19:23 Renvela PO 800 mg AC DANIELLE Administration Sodium Chloride 10 ml 03/31/18 22:00 04/07/18 05:36 Sodium Chloride Flush Syringe 10 Ml IV 10 ml BID DANIELLE Administration Sodium Chloride 10 ml 03/31/18 10:50 Sodium Chloride Flush Syringe 10 Ml IV PRN PRN LINE FLUSH
[2018-04-07] MEDS: Renal Caps PO SCH (13:03)
[2018-04-07] MEDS: TAMIFLU PO SCH (13:04)
[2018-04-07] MEDS: LOPRESSOR PO SCH (13:07)
--- NOTE | 2018-04-07 14:44 | Discharge Summary ---
Providers - Providers Date of Admission: 03/31/18 09:43 Date of discharge: 04/07/18 Attending physician: REDDY MONTEZ 04/03/18 02:03 Consult to Physician [CONS] Urgent Comment: called dr. mason/sree Consulting Provider: PARAG DC Physician Instructions: I D consult Reason For Exam: consult Primary care physician: FINANCE SPECIALIST Hospitalization Condition: Stable Hospital course: Patient presented with altered mental status uncontrolled diabetes and right hip pain. Patient was found to be in respiratory distress and altered mental status secondary to miss hemodialysis. Immediately after hemodialysis patient's altered mental status resolved. We evaluated right hip pain with x-ray which were unremarkable. Patient does not have any further right pain. End-stage renal disease patient tolerated hemodialysis well Monday and can be discharged until hemodialysis on Monday. Patient was dialyzed today. Congestive heart failure was unremarkable. Very well compensated. Diabetes fair control as well. Anemia secondary to chronic kidney disease. Disposition: TO HOME OR SELFCARE Core Measure Documentation - Palliative Care Palliative Care/ Comfort Measures: Not Applicable - Core Measures Any of the following diagnoses?: none - Heart Failure Discharge Requirements GABINO/ARB for LVSD if EF <40%: Yes Beta abigail at discharge: Yes Exam - Constitutional Vitals: Temp Pulse Resp BP Pulse Ox 98.4 F 90 13 135/74 96 04/07/18 08:55 04/07/18 13:07 04/07/18 09:30 04/07/18 13:07 04/07/18 09:30 General appearance: Present: no acute distress, well-nourished - EENT Eyes: Present: PERRL ENT: hearing intact, clear oral mucosa - Neck Neck: Present: supple, normal ROM - Respiratory Respiratory effort: normal Respiratory: bilateral: CTA - Cardiovascular Heart Sounds: Present: S1 & S2. Absent: rub, click - Extremities Extremities: pulses symmetrical, No edema Peripheral Pulses: within normal limits - Abdominal General gastrointestinal: Present: soft, non-tender, non-distended, normal bowel sounds Female genitourinary: Present: normal - Integumentary Integumentary: Present: clear, warm, dry - Musculoskeletal Musculoskeletal: strength equal bilaterally, other (left BKA) - Psychiatric Psychiatric: appropriate mood/affect, intact judgment & insight - Neurologic Neurologic: CNII-XII intact, moves all extremities Plan Activity: fall precautions Weight Bearing Status: Weight Bear as Tolerated Diet: renal Follow up with: PRIMARY CARE, [Primary Care Provider] - 3-5 Days Prescriptions: ALPRAZolam [Xanax] 1 mg PO QDAY PRN #30 tablet PRN Reason: Anxiety Gabapentin [Neurontin] 100 mg PO QHS #30 capsule hydrALAZINE [Apresoline TAB] 50 mg PO Q8HR #90 tablet Hydralazine HCl 50 mg PO Q8H #90 tablet HYDROcodone/APAP 10-325 [[place] 10-325 mg TAB] 1 each PO Q8HR PRN #60 tablet PRN Reason: Pain Lisinopril [Zestril TAB] 40 mg PO QHS #30 tablet Metoprolol Tartrate 50 mg PO QAM #30 tablet oxyCODONE /ACETAMINOPHEN [Percocet 5/325 mg] 1 tab PO Q6H PRN #30 tablet PRN Reason: Pain, Moderate (4-6) Propranolol [Inderal] 80 mg PO BID #60 tablet
[2018-04-07 15:39] VITALS: BP 107/60
== END 2018-04-07 17:13 | disposition home or self-care (01) | DRG 564 ==
LOC: ED 06:23 → 3A 09:43 → IMCU 04-03 16:58
PROVIDERS: ADMIT Hospitalist; ATTEND Internal Medicine
PROC: 5A1D70Z Performance of Urinary Filtration, Intermittent, Less than 6 Hours Per Day (ICD-10-PCS; 2018-03-31)
PROC: 5A1D70Z Performance of Urinary Filtration, Intermittent, Less than 6 Hours Per Day (ICD-10-PCS; 2018-04-03)
PROC: 5A1D70Z Performance of Urinary Filtration, Intermittent, Less than 6 Hours Per Day (ICD-10-PCS; 2018-04-05)
PROC: 009U3ZX Drainage of Spinal Canal, Percutaneous Approach, Diagnostic (ICD-10-PCS; principal; 2018-04-06)
PROC: B01B1ZZ Fluoroscopy of Spinal Cord using Low Osmolar Contrast (ICD-10-PCS; 2018-04-06)
PROC: 5A1D70Z Performance of Urinary Filtration, Intermittent, Less than 6 Hours Per Day (ICD-10-PCS; 2018-04-07)
DX: T79.6XXA Traumatic ischemia of muscle, initial encounter (principal); G92 Toxic encephalopathy; N18.6 End stage renal disease; A41.9 Sepsis, unspecified organism; I13.2 Hypertensive heart and chronic kidney disease with heart failure and with stage 5 chronic kidney disease, or end stage renal disease; I50.22 Chronic systolic (congestive) heart failure; Q21.1 Atrial septal defect; I42.8 Other cardiomyopathies; M25.551 Pain in right hip; I27.20 Pulmonary hypertension, unspecified; E11.22 Type 2 diabetes mellitus with diabetic chronic kidney disease; E11.40 Type 2 diabetes mellitus with diabetic neuropathy, unspecified; I15.0 Renovascular hypertension; D63.1 Anemia in chronic kidney disease; W18.39XA Other fall on same level, initial encounter; Z95.810 Presence of automatic (implantable) cardiac defibrillator; Z89.512 Acquired absence of left leg below knee; Z88.1 Allergy status to other antibiotic agents; Z88.5 Allergy status to narcotic agent; Z88.2 Allergy status to sulfonamides; Z91.041 Radiographic dye allergy status; Z79.899 Other long term (current) drug therapy; Y93.89 Activity, other specified; Y92.89 Other specified places as the place of occurrence of the external cause; Y99.8 Other external cause status
CPT/HCPCS: 36415; 62270; 70450; 71045; 77003; 80048; 80053; 82140; 82550; 82947; 82962; 84160; 85007; 85025; 85610; 85730; 86140; 86403; 86592; 86850; 86900; 86901; 87040; 87116; 87400; 89051; 93306; G0378; 87502; J0696; J1644; J1650; J1885; J2543; J7030; J7040